=== PATIENT | female | born 1975 | race Caucasian/White ===

== ENCOUNTER 2018-01-28 07:35 | Emergency (ER) | payer MEDICAID, SELFPAY ==
[2018-01-28 07:39] VITALS: BP 118/75; PULSE 79; RESP 16; TEMP 36.6; O2SAT 97
--- NOTE | 2018-01-28 08:07 | DI.RAD_ITS ---
SYMPTOM/DIAGNOSIS: COUGH, SINUS CONGESTION PA AND LATERAL CHEST: Comparison is made with 01/11/14. The heart is normal in size. The lungs are clear. The mediastinal structures and pleura appear intact. CONCLUSION: Normal chest.
--- NOTE | 2018-01-28 08:34 | ED.GENADUL_ITS ---
Discharge Plan Disposition Patient Disposition: HOME Discharge Details Chief Complaint: RespSymp Clinical Impression: Sinusitis, Pneumonia Primary Care Provider: Michell Simmons ED Provider: Jorge Alberto Norris Home Meds and New Rx's Prescriptions: New levofloxacin [Levaquin] 750 mg tablet 750 mg PO DAILY Qty: 4 RF: 0 Continued ProAir HFA 8.5 GM HFA aerosol inhaler 2 puff Inhalation Q4H PRN Qty: 1 RF: 1 almotriptan malate [Axert] 12.5 MG tablet 12.5 mg PO DAILY PRNQty: 10 RF: 3 sertraline 100 MG tablet 200 mg PO DAILY Qty: 180 RF: 3 Xarelto 20 MG tablet 20 mg PO DAILY Qty: 90 RF: 3 Discontinued fluticasone [Flonase Allergy Relief] 9.9 ML spray,suspension 1 - 2 spry NS DAILY PRNQty: 1 RF: 3 Discharge Instructions Instructions: Sinusitis (ED), Pneumonia (ED) Additional Instructions: Please stayed home and rest over the next 3 days. Drink plenty of fluids to stay hydrated. Please contact your primary care physician to arrange follow-up. Call on Monday. Return to the ER for any worsening or new concerning symptoms. Stand Alone Forms: Work Release Referrals: Michell Simmons, ADJUNCT TRAINER [Primary Care Provider] - Discharge Data Discharge Date/Time-TO BE ENTERED AT DEPARTURE: 01/28/18 08:54 Medical Decision Making 8:40 --42-year-old female here with 1-2 months of respiratory illness including productive cough, sinus congestion, and ear pain. Symptoms refractory to course of Augmentin. Patient has severe tenderness over her maxillary sinuses bilaterally. Given persistence and severity of symptoms, refractory to initial antibiotics I am concerned about complicated acute bacterial sinusitis. Consider pneumonia. Chest x-ray reviewed and interpreted by me: Questionable subtle bibasilar opacities, no consolidation. We will treat with Levaquin 750 x 5 days. Patient will require close outpatient follow-up to ensure that symptoms are improving and that additional antibiotic coverage is not necessary. Encouraged her to rest and drink plenty of fluids over the next few days. Disposition decision was made weighing the risks and benefits of hospitalization versus outpatient treatment, the risk for further decompensation, and the patient's wishes. The patient was stable and requested discharge. Prior to discharge, my usual and customary return precautions were reviewed with the patient - this included follow-up instructions and reason to return to the emergency department if condition worsens, does not improve as expected, or other new concerns arise. -- cxr interpreted by radiology: IMPRESSION: No acute findings HPI General Mode of arrival: ambulatory . Date/Time Provider Initiated Documentation: 01/28/18 07:56 . Limitations to Documentation: no limitations . Information obtained by: patient . HPI Narrative: 42-year-old female with history of asthma, pulmonary embolism controlled on Xarelto, here with a chief complaint of cough. Patient states that she has had cough since November. She has associated sinus congestion and ear pain. She was seen by her primary care physician on 01/11/2018 and diagnosed with sinusitis and started on Augmentin. She completed a full course of Augmentin without symptom improvement. Symptoms have worsened over the past few days. Cough is intermittently productive. Sinus congestion is severe. No modifiers. She has associated pain in her left ear. No fevers although she has been taking Tylenol regularly for her pain. Related Data Home Medications Medication Instructions Recorded Confirmed ProAir HFA 2 puff INHALATION Q4H PRN #1 12/06/13 01/28/18 inhaler Xarelto 20 mg PO DAILY #90 tab 06/19/17 01/28/18 almotriptan malate [Axert] 12.5 mg PO DAILY PRN #10 tab 06/19/17 01/28/18 sertraline 200 mg PO DAILY #180 tab-cap 06/19/17 01/28/18 levofloxacin [Levaquin] 750 mg PO DAILY #4 tab 01/28/18 Previous Rx's Medication Instructions Recorded Xarelto 20 mg PO DAILY #90 tab 06/19/17 sertraline 200 mg PO DAILY #180 tab-cap 06/19/17 levofloxacin [Levaquin] 750 mg PO DAILY #4 tab 01/28/18 Allergies Allergy/AdvReac Type Severity Reaction Status Date / Time bupropion Allergy Unknown hives Unverified 01/28/18 07:44 naproxen Allergy Unknown hives Unverified 01/28/18 07:44 General Stated Complaint: RespSymp MANISH: 3 Review of Systems Review of Systems All systems reviewed & are unremarkable except as noted in HPI and below Constitutional Reports body ache(s) and Denies fever(s) ENT Reports otalgia and Reports facial pain Respiratory Reports cough PFSH Medical History Asthma Depression HLD (hyperlipidemia) LGSIL on Pap smear of cervix (08/26/15) Migraines Pulmonary embolism Surgical History Bursectomy Tubal Ligation, [place] teeth extraction Family History Mother Rheumatoid arthritis Diabetes Essential hypertension Hyperlipidemia Mental disorder Father Substance abuse Diabetes Seizure disorder Sister Substance abuse Mental disorder Sister Mental disorder Grandmother Rheumatoid arthritis Personal history of malignant neoplasm Maternal Aunt Personal history of malignant neoplasm Social History Smoking/Tobacco Use Status: Former Tobacco Use alcohol intake: never substance use type: does not use Exam Const General: cooperative and no acute distress Nutritional Appearance: well nourished Orientation: alert and awake HENMT Head: normocephalic and atraumatic Ears: TM abnormal bulging on the left and erythematous (with small fluid filled blister) on the right Face and sinus: face symmetric and tenderness bilaterally forehead and maxilla Mouth: oral mucosae normal and moist mucous membranes Throat: posterior oropharynx abnormal erythema; no cobblstoning, no edema and no exudates Eyes Conjunctivae: normal conjunctivae Sclera: normal sclerae EOM: EOM intact bilaterally Neck Neck: trachea midline and supple Resp Effort & Inspection: cough Quality of cough: actively coughing Auscultation: no rales, rhonchi and no wheezes Cardio Jugular venous pressure: no JVD Rate: regular rate and not tachycardic Rhythm: regular rhythm GI Palpation: soft, not firm, no guarding, no masses, not rigid and nontender Skin General skin exam: no rashes or lesions noted Neuro General: alert, awake, oriented x3 and tone normal Extrem General: no edema Psych Appearance: grossly normal Mental Status: mental status grossly normal Speech and Movement: speech and movement normal Course Vital Signs Temperature 36.6 C 01/28/18 07:39 Pulse 79 01/28/18 07:39 Respiratory Rate 16 01/28/18 07:39 Blood Pressure 118/75 01/28/18 07:39 Pulse Oximetry 97 01/28/18 07:39 Temperature 36.6 C 01/28/18 07:39 Temperature Source Temporal Artery Scan 01/28/18 07:39 Pulse 79 01/28/18 07:39 Respiratory Rate 16 01/28/18 07:39 Respiratory Effort Non-Labored 01/28/18 07:47 Respiratory Depth Normal 01/28/18 07:47 Blood Pressure 118/75 01/28/18 07:39 Blood Pressure Position Sitting 01/28/18 07:39 Pulse Oximetry 97 01/28/18 07:39 Oxygen Delivery Method Room Air 01/28/18 07:39 Oxygen Flow Rate 0 01/28/18 07:39 Pain Level 8 01/28/18 07:39
[2018-01-28 08:54] VITALS: BP 118/75; PULSE 76; RESP 16; TEMP 36.7; O2SAT 97
--- NOTE | 2018-01-28 09:19 | DI.VRAD_ITS ---
EXAM: XR Chest, 2 Views EXAM DATE/TIME: 01/28/2018 8:20 AM CLINICAL HISTORY: 42 years old, female; Signs and symptoms; Other: Cough since oct, sinus congestion TECHNIQUE: XR of the chest, 2 views. COMPARISON: CR CHEST 2 VIEWS PA,LAT 01/11/2014 4:47 PM FINDINGS: Lungs: Unremarkable. No consolidation. Pleural space: Unremarkable. No pleural effusion. No pneumothorax. Heart/Mediastinum: Unremarkable. No cardiomegaly. Bones/joints: Unremarkable. IMPRESSION: No acute findings. Dictated and Authenticated by: Brandie Sesay MD. Ordering:HERMILO Azul MD
== END 2018-01-28 08:54 | disposition home or self-care (01) ==
PROVIDERS: Emergency Provider Student in an Organized Health Care Education/Training Program; PCP Nurse Practitioner Adult Health
DX: J01.90 Acute sinusitis, unspecified (principal); J18.9 Pneumonia, unspecified organism; Z87.891 Personal history of nicotine dependence
CPT/HCPCS: 99283; 71046

== ENCOUNTER 2018-01-28 16:58 | Emergency (ER) | payer MEDICAID, SELFPAY ==
[2018-01-28 17:07] VITALS: BP 122/83; PULSE 83; RESP 16; TEMP 36.4; O2SAT 98
--- NOTE | 2018-01-28 17:17 | ED.GENADUL_ITS ---
Discharge Plan Disposition Patient Disposition: HOME Discharge Details Chief Complaint: RespSymp Clinical Impression: Cough Reason For Visit: cough Primary Care Provider: Michell Simmons ED Provider: Jorge Alberto Norris Home Meds and New Rx's Prescriptions: Continued almotriptan malate [Axert] 12.5 MG tablet 12.5 mg PO DAILY PRNQty: 10 RF: 3 sertraline 100 MG tablet 200 mg PO DAILY Qty: 180 RF: 3 Xarelto 20 MG tablet 20 mg PO DAILY Qty: 90 RF: 3 No Action benzonatate 100 mg capsule 100 mg PO TID PRN (Reason: cough) Qty: 30 RF: 0 ProAir HFA 90 mcg/actuation HFA aerosol inhaler 2 puff Inhalation Q4H PRN Qty: 1 RF: 2 Discharge Instructions Additional Instructions: Take tylenol with codeine tablet tonight. DO NOT TAKE WITH ANY OTHER PRODUCTS CONTAINING ACETAMINOPHEN. Please take your medication as prescribed. See discharge instructions from earlier today. Be sure to rest over the next few days. Follow-up with your doctor. Call tomorrow. Return to the ER for any worsening or new concerning symptoms. Referrals: Michell Simmons, PERMACULTURE DESIGNER [Primary Care Provider] - Discharge Data Discharge Date/Time-TO BE ENTERED AT DEPARTURE: 01/28/18 17:45 Medical Decision Making 42-year-old female returns to the ED after visit earlier today after being diagnosed with sinusitis and pneumonia and started on Levaquin. She returns for persistent cough requesting antitussive medication. Pharmacies are closed. I will treat her with Robitussin-AC here and give her a prescription that she can fill for tomorrow. Discharge instructions as previously discussed were again provided. HPI General Mode of arrival: ambulatory . Date/Time Provider Initiated Documentation: 01/28/18 17:03 . Limitations to Documentation: no limitations . Information obtained by: patient . HPI Narrative: 42-year-old female returns to the ED after visit earlier today after being diagnosed with sinusitis and pneumonia and started on Levaquin. She returns for persistent cough requesting antitussive medication. Please see prior note for additional history. Related Data Home Medications Medication Instructions Recorded Confirmed Xarelto 20 mg PO DAILY #90 tab 06/19/17 02/05/18 almotriptan malate [Axert] 12.5 mg PO DAILY PRN #10 tab 06/19/17 02/05/18 sertraline 200 mg PO DAILY #180 tab-cap 06/19/17 02/05/18 albuterol sulfate HFA 90 2 puff INHALATION Q4H PRN #1 01/29/18 02/05/18 mcg/actuation aerosol inhaler inhaler benzonatate 100 mg capsule 100 mg PO TID PRN #30 tab-cap 02/05/18 02/05/18 Previous Rx's Medication Instructions Recorded Xarelto 20 mg PO DAILY #90 tab 06/19/17 sertraline 200 mg PO DAILY #180 tab-cap 06/19/17 albuterol sulfate HFA 90 2 puff INHALATION Q4H PRN #1 01/29/18 mcg/actuation aerosol inhaler inhaler benzonatate 100 mg capsule 100 mg PO TID PRN #30 tab-cap 02/05/18 Allergies Allergy/AdvReac Type Severity Reaction Status Date / Time bupropion Allergy Unknown hives Verified 02/05/18 08:15 naproxen Allergy Unknown hives Verified 02/05/18 08:15 General Stated Complaint: RespSymp MANISH: 4 Review of Systems Respiratory Reports cough PFSH Social History Smoking/Tobacco Use Status: Former Tobacco Use alcohol intake: never substance use type: does not use Exam Resp Effort & Inspection: normal respiratory effort, able to speak in complete sentences and cough Course Vital Signs Temperature 36.4 C L 01/28/18 17:07 Pulse 83 01/28/18 17:07 Respiratory Rate 16 01/28/18 17:07 Blood Pressure 122/83 01/28/18 17:07 Pulse Oximetry 98 01/28/18 17:07 Temperature 36.4 C L 01/28/18 17:07 Pulse 83 01/28/18 17:07 Respiratory Rate 16 01/28/18 17:07 Respiratory Effort 01/28/18 17:10 Blood Pressure 122/83 01/28/18 17:07 Blood Pressure Position Sitting 01/28/18 17:07 Pulse Oximetry 98 01/28/18 17:07 Pain Level 6 01/28/18 17:07 Comment 01/28/18 17:07
[2018-01-28] MEDS: guaiFENesin/CODEINE PHOSPHATE 10 ML CUP PO (17:29)
[2018-01-28] MEDS: guaiFENesin/D-METHORPHAN HB 5 ML CUP (17:31)
== END 2018-01-28 17:45 | disposition home or self-care (01) ==
PROVIDERS: Emergency Provider Student in an Organized Health Care Education/Training Program; PCP Nurse Practitioner Adult Health
DX: R05 Cough (principal)
CPT/HCPCS: 99283

== ENCOUNTER 2018-03-04 07:58 | Emergency (ER) | payer MEDICAID, SELFPAY ==
--- NOTE | 2018-03-04 08:07 | W.ED.GENAD ---
Discharge Plan Disposition Patient Disposition: HOME Condition: Fair Discharge Details Chief Complaint: Orthopedic Clinical Impression: Munoz's cyst Primary Care Provider: Michell Simmons ED Provider: Ade Peters Home Meds and New Rx's Prescriptions: Continued benzonatate 100 mg capsule 100 mg PO TID PRN (Reason: cough) Qty: 30 RF: 0 almotriptan malate [Axert] 12.5 MG tablet 12.5 mg PO DAILY PRNQty: 10 RF: 3 sertraline 100 MG tablet 200 mg PO DAILY Qty: 180 RF: 3 Xarelto 20 MG tablet 20 mg PO DAILY Qty: 90 RF: 3 ProAir HFA 90 mcg/actuation HFA aerosol inhaler 2 puff Inhalation Q4H PRN Qty: 1 RF: 2 Discharge Instructions Instructions: Bakers Cyst (ED) Additional Instructions: Encourage rest, ice, elevation. Tylenol as needed for discomfort. You may use 1000 milligrams of Tylenol every 6 hours as needed for discomfort, max of 4000mg daily. You may also try topical patches such as Salonpas or Lidoderm patches for discomfort. Please continue with Paul wrap to help with swelling. Crutches to help with ambulation, take care in the weather and touch down with the affected foot for balance. If you develop fevers/chills, increased pain, shortness of breath, difficulty breathing, chest pain or other new/worsening symptoms please seek care urgently once again. Please call orthopedics to schedule follow up appointment, number listed below. Stand Alone Forms: Work Release Referrals: Michell Simmons NP [Primary Care Provider] - René Hanson MD [ [facility] STAFF PHYSICIAN] - Medical Decision Making Patient is a 42 year old female with history of LE DVT and PE, currently anticoagulated on Xarelto, presenting today with c/c of left LE pain that began 2 days ago. STates she awoke with a charley horse in the posterior calf. Reports that pain has migrated and is now posterior and medial thigh. Having difficulty ambulating secondary to pain. STates she has been taking her medications as prescribed, has not missed any dosing of Xarelto. Denies any recent trauma, no recent travel. Denies CP or SOB although she felt winded while shoveling this morning. Reports that pain is similar to previous clot. Patient has clot in 2002, has been anticoagulated since then. STates that it was unprovoked, thought to be familial. She repeorts she has been ill recently. States she was sick for approxiamtely 6 weeks with pneumonia, was on multiple antibiotics and was fairly sedentary. Finished treatment a few weeks ago. On exam, she has good distal pulses. No posterior calf pain with palpation. Pain is elicited with palpation over the medial and posterior thigh. Full ROM. Pain with eversion of the hip, this causes discomfort along the medial thigh. Has few varicosities on the calf, more on the contralateral side. No edema. Pain posterior knee. No pain with ROM of the knee, ligamentous exam intact. Patients history and description is concerning for possible clot. Her calf is soft, negative Homans sign. Also considered muscular cause of discomfort. Plan to obtain US of LLE. However, as it is Monday, no US tech on. They are calling to see if someone is available. If not, will screen with d-dimer. Will give Tylenol to help with discomfort. US will be in in one hour. Patient continues to endorse fairly severe pain. Will augment Tylenol with Oxycodone. She is able to get a ride home. US reviewed by radiologist: FINDINGS: Left deep veins: Unremarkable. The common femoral, femoral, proximal profunda femoral and popliteal veins are patent without thrombus. Normal compressibility, augmentation response and Doppler waveforms. Soft tissues: Cyst measuring 2.7 cm x 1.8 cm x 0.5 cm within the popliteal fossa consistent with Munoz's cyst. IMPRESSION: No DVT. Discussed these findings with the patient. She reports that much of her pain seems to be radiating from the posterior aspect of the knee radiating up the thigh which is consistent with where her Munoz's cyst is. She also reports she had been able to feel focal swelling in the posterior aspect of the knee, was not able to appreciate this on exam today. We discussed pathology of Munoz's cyst and expected course. Paul wrap will be applied. We will give crutches. Particular given the weather, I did advise on touchdown weightbearing to prevent fall. I encouraged rest, ice, elevation. Advised Tylenol. Patient is anticoagulated unable to take ibuprofen. Advise follow-up with orthopedics, she will contact them tomorrow to schedule follow-up appointment. We discussed new/worsening symptoms and when to seek care urgently once again. All her questions and concerns were addressed and she is in agreement with this plan. HPI General Mode of arrival: ambulatory. Date/Time Provider Initiated Documentation: 03/04/18 08:07. Limitations to Documentation: no limitations. Information obtained by: patient. History of Present Illness 42 year old F presents to the emergency department with the chief complaint of left leg pain, described as moderate, with intensity rated at 5. Quality is described as aching, and is localized to the left and lower extremity. Patient reports no radiation. Patient started experiencing this day(s) (2) and it has been constant. Immobilization improves symptom(s), Movement worsens symptoms . Patient notes denies chest pain, cough, nausea/vomiting, rash, shortness of breath and weakness. Patient did receive the following treatments prior to arrival, other (500mg Tylenlol 3.5 hours prior to arrival) Related Data Home Medications Medication Instructions Recorded Confirmed Xarelto 20 mg PO DAILY #90 tab 06/19/17 03/04/18 almotriptan malate [Axert] 12.5 mg PO DAILY PRN #10 tab 06/19/17 03/04/18 sertraline 200 mg PO DAILY #180 tab-cap 06/19/17 03/04/18 albuterol sulfate HFA 90 2 puff INHALATION Q4H PRN #1 01/29/18 03/04/18 mcg/actuation aerosol inhaler inhaler benzonatate 100 mg capsule 100 mg PO TID PRN #30 tab-cap 02/05/18 03/04/18 Previous Rx's Medication Instructions Recorded Xarelto 20 mg PO DAILY #90 tab 06/19/17 sertraline 200 mg PO DAILY #180 tab-cap 06/19/17 albuterol sulfate HFA 90 2 puff INHALATION Q4H PRN #1 01/29/18 mcg/actuation aerosol inhaler inhaler benzonatate 100 mg capsule 100 mg PO TID PRN #30 tab-cap 02/05/18 Allergies Allergy/AdvReac Type Severity Reaction Status Date / Time bupropion Allergy Unknown hives Verified 03/04/18 08:35 naproxen Allergy Unknown hives Verified 03/04/18 08:35 General MANISH: 4 Review of Systems Constitutional Reports as per HPI, Denies chills, Denies fever(s), Denies headache(s) and Denies weakness ENT Denies headache(s) Cardiovascular Reports as per HPI Respiratory Reports as per HPI and Denies cough Gastrointestinal Denies abdominal pain, Denies change in stool character, Denies loose stools and Denies vomiting Musculoskeletal Reports as per HPI and Denies tingling Integumentary/Breasts Reports as per HPI, Denies rash and Denies wounds Neurologic Denies headache(s), Denies tingling and Denies weakness PFSH Medical History Asthma Depression HLD (hyperlipidemia) LGSIL on Pap smear of cervix (08/26/15) Migraines Pulmonary embolism Surgical History Bursectomy Tubal Ligation, [place] teeth extraction Social History Smoking/Tobacco Use Status: Former Tobacco Use alcohol intake: never substance use type: does not use Exam Const General: cooperative, healthy appearing, comfortable, no acute distress, well developed and well groomed Nutritional Appearance: average body habitus and well nourished Orientation: alert and awake Resp Effort & Inspection: normal respiratory effort, able to speak in complete sentences and no respiratory distress Auscultation: clear to auscultation bilaterally, no rales, no rhonchi and no wheezes Cardio Rate: regular rate Rhythm: regular rhythm Heart Sounds: S1 normal and S2 normal Skin General skin exam: no rashes or lesions noted Lesions: no lesions Rashes: no rashes Trauma: no lacerations or abrasions Neuro General: alert and awake Cognition: normal cognition Speech: speech normal Gait: normal gait Motor: muscle tone normal throughout Sensory Exam: no sensory deficits noted Extrem General: normal to inspection, full ROM, normal capillary refill, no joint enlargement, no pedal edema, no calf tenderness, abnormal gait (antalgic gait), no calf tenderness bilaterally, no edema and limp Left lower extremity: full ROM, normal capillary refill, hip/thigh Details: tenderness (medial and posterior thigh) and normal ROM; no swelling, no ecchymosis and no unusual warmth, knee Details: normal to inspection, tenderness Location: of the popliteal fossa, normal ROM and knee ligament exam normal; no swelling, no deformity and no unusual warmth, lower leg Details: no edema; no tenderness, no localized swelling, no palpable cords, no ecchymosis, no deformity and no unusual warmth and foot Details: normal capillary refill, normal to inspection, toes with normal ROM, no edema and vascular exam Details: dorsalis pedis pulse present, posterior tibial pulse present and normal capillary refill; not cool and no cyanosis; no tenderness; abnormal to inspection (patient has few areas of varicosities on bilateral LE calf. ) Psych Appearance: grossly normal and well kempt Mental Status: mental status grossly normal Speech and Movement: speech and movement normal
[2018-03-04 08:10] VITALS: BP 111/85; PULSE 80; RESP 12; TEMP 36.8; O2SAT 96
--- NOTE | 2018-03-04 08:12 | ED.GENADUL_ITS ---
Discharge Plan Disposition Patient Disposition: HOME Condition: Fair Discharge Details Chief Complaint: Orthopedic Clinical Impression: Munoz's cyst Primary Care Provider: Michell Simmons ED Provider: Ade Peters Home Meds and New Rx's Prescriptions: Continued benzonatate 100 mg capsule 100 mg PO TID PRN (Reason: cough) Qty: 30 RF: 0 almotriptan malate [Axert] 12.5 MG tablet 12.5 mg PO DAILY PRNQty: 10 RF: 3 sertraline 100 MG tablet 200 mg PO DAILY Qty: 180 RF: 3 Xarelto 20 MG tablet 20 mg PO DAILY Qty: 90 RF: 3 ProAir HFA 90 mcg/actuation HFA aerosol inhaler 2 puff Inhalation Q4H PRN Qty: 1 RF: 2 Discharge Instructions Instructions: Bakers Cyst (ED) Additional Instructions: Encourage rest, ice, elevation. Tylenol as needed for discomfort. You may use 1000 milligrams of Tylenol every 6 hours as needed for discomfort, max of 4000mg daily. You may also try topical patches such as Salonpas or Lidoderm patches for discomfort. Please continue with Paul wrap to help with swelling. Crutches t o help with ambulation, take care in the weather and touch down with the affected foot for balance. If you develop fevers/chills, increased pain, shortness of breath, difficulty breathing, chest pain or other new/worsening symptoms please seek care urgently once again. Please call orthopedics to schedule follow up appointment, number listed below. Stand Alone Forms: Work Release Referrals: Michell Simmons NP [Primary Care Provider] - René Hanson MD [ [facility] STAFF PHYSICIAN] - Medical Decision Making Patient is a 42 year old female with history of LE DVT and PE, currently anticoagulated on Xarelto, presenting today with c/c of left LE pain that began 2 days ago. STates she awoke with a charley horse in the posterior calf. Reports that pain has migrated and is now posterior and medial thigh. Having difficulty ambulating secondary to pain. STates she has been taking her medications as prescribed, has not missed any dosing of Xarelto. Denies any recent trauma, no recent travel. Denies CP or SOB although she felt winded while shoveling this morning. Reports that pain is similar to previous clot. Patient has clot in 2002, has been anticoagulated since then. STates that it was unprovoked, thought to be familial. She repeorts she has been ill recently. States she was sick for approxiamtely 6 weeks with pneumonia, was on multiple antibiotics and was fairly sedentary. Finished treatment a few weeks ago. On exam, she has good distal pulses. No posterior calf pain with palpation. Pain is elicited with palpation over the medial and posterior thigh. Full ROM. Pain with eversion of the hip, this causes discomfort along the medial thigh. Has few varicosities on the calf, more on the contralateral side. No edema. Pain posterior knee. No pain with ROM of the knee, ligamentous exam intact. Patients history and description is concerning for possible clot. Her calf is soft, negative Homans sign. Also considered muscular cause of discomfort. Plan to obtain US of LLE. However, as it is Monday, no US tech on. They are calling to see if someone is available. If not, will screen with d-dimer. Will give T ylenol to help with discomfort. US will be in in one hour. Patient continues to endorse fairly severe pain. Will augment Tylenol with Oxycodone. She is able to get a ride home. US reviewed by radiologist: FINDINGS: Left deep veins: Unremarkable. The common femoral, femoral, proximal profunda femoral and popliteal veins are patent without thrombus. Normal compressibility, augmentation response and Doppler waveforms. Soft tissues: Cyst measuring 2.7 cm x 1.8 cm x 0.5 cm within the popliteal fossa consistent with Munoz's cyst. IMPRESSION: No DVT. Discussed these findings with the patient. She reports that much of her pain seems to be radiating from the posterior aspect of the knee radiating up the thigh which is consistent with where her Munoz's cyst is. She also reports she had been able to feel focal swelling in the posterior aspect of the knee, was not able to appreciate this on exam today. We discussed pathology of Munoz's cyst and expected course. Paul wrap will be applied. We will give crutches. Particular given the weather, I did advise on touchdown weightbearing to prevent fall. I encouraged rest, ice, elevation. Advised Tylenol. Patient is anticoagulated unable to take ibuprofen. Advise follow-up with orthopedics, she will contact them tomorrow to schedule follow-up appointment. We discussed new/worsening symptoms and when to seek care urgently once again. All her questions and concerns were addressed and she is in agreement with this plan. HPI General Mode of arrival: ambulatory . Date/Time Provider Initiated Documentation: 03/04/18 08:07 . Limitations to Documentation: no limitations . Information obtained by: patient . History of Present Illness 42 year old F presents to the emergency department with the chief complaint of left leg pain, described as moderate, with intensity rated at 5. Quality is described as aching, and is localized to the left and lower extremity. Patient reports no radiation. Patient started experiencing this day(s) (2) and it has been constant. Immobilization improves symptom(s), Movement worsens symptoms . Patient notes denies chest pain, cough, nausea/vomiting, rash, shortness of breath and weakness. Patient did receive the following treatments prior to arrival, other (500mg Tylenlol 3.5 hours prior to arrival) Related Data Home Medications Medication Instructions Recorded Confirmed Xarelto 20 mg PO DAILY #90 tab 06/19/17 03/04/18 almotriptan malate [Axert] 12.5 mg PO DAILY PRN #10 tab 06/19/17 03/04/18 sertraline 200 mg PO DAILY #180 tab-cap 06/19/17 03/04/18 albuterol sulfate HFA 90 2 puff INHALATION Q4H PRN #1 01/29/18 03/04/18 mcg/actuation aerosol inhaler inhaler benzonatate 100 mg capsule 100 mg PO TID PRN #30 tab-cap 18 03/04/18 Previous Rx's Medication Instructions Recorded Xarelto 20 mg PO DAILY #90 tab 06/19/17 sertraline 200 mg PO DAILY #180 tab-cap 06/19/17 albuterol sulfate HFA 90 2 puff INHALATION Q4H PRN #1 01/29/18 mcg/actuation aerosol inhaler inhaler benzonatate 100 mg capsule 100 mg PO TID PRN #30 tab-cap 02/05/18 Allergies Allergy/AdvReac Type Severity Reaction Status Date / Time bupropion Allergy Unknown hives Verified 03/04/18 08:35 naproxen Allergy Unknown hives Verified 03/04/18 08:35 General MANISH: 4 Review of Systems Constitutional Reports as per HPI, Denies chills, Denies fever(s), Denies headache(s) and Denies weakness ENT Denies headache(s) Cardiovascular Reports as per HPI Respiratory Reports as per HPI and Denies cough Gastrointestinal Denies abdominal pain, Denies change in stool character, Denies loose stools and Denies vomiting Musculoskeletal Reports as per HPI and Denies tingling Integumentary/Breasts Reports as per HPI, Denies rash and Denies wounds Neurologic Denies headache(s), Denies tingling and Denies weakness PFSH Medical History Asthma Depression HLD (hyperlipidemia) LGSIL on Pap smear of cervix (08/26/15) Migraines Pulmonary embolism Surgical History Bursectomy Tubal Ligation, [place] teeth extraction Social History Smoking/Tobacco Use Status: Former Tobacco Use alcohol intake: never substance use type: does not use Exam Const General: cooperative, healthy appearing, comfortable, no acute distress, well developed and well groomed Nutritional Appearance: average body habitus and well nourished Orientation: alert and awake Resp Effort & Inspection: normal respiratory effort, able to speak in complete sentences and no respiratory distress Auscultation: clear to auscultation bilaterally, no rales, no rhonchi and no wheezes Cardio Rate: regular rate Rhythm: regular rhythm Heart Sounds: S1 normal and S2 normal Skin General skin exam: no rashes or lesions noted Lesions: no lesions Rashes: no rashes Trauma: no lacerations or abrasions Neuro General: alert and awake Cognition: normal cognition Speech: speech normal Gait: normal gait Motor: muscle tone normal throughout Sensory Exam: no sensory deficits noted Extrem General: normal to inspection, full ROM, normal capillary refill, no joint enlargement, no pedal edema, no calf tenderness, abnormal gait (antalgic gait), no calf tenderness bilaterally, no edema and limp Left lower extremity: full ROM, normal capillary refill, hip/thigh Details: tenderness (medial and posterior thigh) and normal ROM; no swelling, no ecchymosis and no unusual warmth, knee Details: normal to inspection, tenderness Location: of the popliteal fossa, normal ROM and knee ligament exam normal; no swelling, no deformity and no unusual warmth, lower leg Details: no edema; no tenderness, no localized swelling, no palpable cords, no ecchymosis, no deformity and no unusual warmth and foot Details: normal capillary refill, normal to inspection, toes with normal ROM, no edema and vascular exam Details: dorsalis pedis pulse present, posterior tibial pulse present and normal capillary refill; not cool and no cyanosis; no tenderness; abnormal to inspection (patient has few areas of varicosities on bilateral LE calf. ) Psych Appearance: grossly normal and well kempt Mental Status: mental status grossly normal Speech and Movement: speech and movement normal
--- NOTE | 2018-03-04 08:12 | DI.US_ITS ---
SYMPTOM/DIAGNOSIS: POSTERIOR PAIN, H/O CLOT LEFT LOWER EXTREMITY ULTRASOUND: The deep veins of the left lower extremity show normal compression, augmentation and color flow. There is no evidence of a deep venous thrombus present. The saphenofemoral junction appears unremarkable. There is a 2.7 by 0.5 by 1.8 cm. cyst in the popliteal fossa consistent with a Munoz's cyst. IMPRESSION: No evidence of a left lower extremity deep venous thrombus.
[2018-03-04] MEDS: Acetaminophen 500 MG TAB PO (08:25)
[2018-03-04] MEDS: oxyCODONE 5 MG TAB PO (09:47)
--- NOTE | 2018-03-04 11:10 | DI.VRAD_ITS ---
EXAM: US Left Duplex Lower Extremity Veins, Limited EXAM DATE/TIME: 03/04/2018 10:55 AM CLINICAL HISTORY: 42 years old, female; Signs and symptoms; Other: Left calf pain TECHNIQUE: Real-time Duplex ultrasound of the Left Lower Extremity with 2-D hardin scale, color Doppler flow and spectral waveform analysis. Limited exam focused on the left lower extremity veins. COMPARISON: No relevant prior studies available. FINDINGS: Left deep veins: Unremarkable. The common femoral, femoral, proximal profunda femoral and popliteal veins are patent without thrombus. Normal compressibility, augmentation response and Doppler waveforms. Soft tissues: Cyst measuring 2.7 cm x 1.8 cm x 0.5 cm within the popliteal fossa consistent with Munoz's cyst. IMPRESSION: No DVT. Dictated and Authenticated by: Domingo Benjamin MD. Ordering:YADIRA Booker MD
== END 2018-03-04 11:47 | disposition home or self-care (01) ==
PROVIDERS: Emergency Provider Physician Assistant; PCP Nurse Practitioner Adult Health
DX: M71.22 Synovial cyst of popliteal space [Baker], left knee (principal); Z79.01 Long term (current) use of anticoagulants
CPT/HCPCS: 99284; 93971; E0114

== ENCOUNTER 2018-04-23 01:03 | Outpatient (CLI) | payer MEDICAID, SELFPAY ==
--- NOTE | 2018-04-23 09:40 | DI.MRI_ITS ---
SYMPTOMS/DIAGNOSIS: LT KNEE PAIN, LT INTERNAL DERANGEMENT MRI OF THE LEFT KNEE: Routine noncontrast examination was performed. The anterior cruciate and posterior cruciate ligaments are intact as are both the medial and lateral collateral ligaments, extensor mechanism and medial and lateral retinaculum. The popliteus tendon has a normal appearance. There is no evidence of a meniscal tear. There is thinning of the articular cartilage in the patellofemoral joint with subchondral edema seen in both the femoral condyle and the patella. There is a small amount of fluid in the joint space. There is a small popliteal cyst present. No findings to suggest an occult fracture or avascular necrosis is seen. There are subchondral cysts seen in the medial tibial plateau. The muscles show normal signal and size. No significant muscular fatty atrophy is present. IMPRESSION: 1. No evidence of a meniscal or ligament tear. 2. Degenerative changes seen in the knee.
== END 2018-04-23 01:23 ==
PROVIDERS: PCP Nurse Practitioner Adult Health; Visit Provider Student in an Organized Health Care Education/Training Program
DX: M25.562 Pain in left knee (principal); M23.92 Unspecified internal derangement of left knee; M17.12 Unilateral primary osteoarthritis, left knee
CPT/HCPCS: 73721

== ENCOUNTER 2018-05-11 16:20 | Outpatient (REF) | payer MEDICAID, SELFPAY ==
[2018-05-11 18:25] LABS: Abs Immature Grans 0.02 k/cumm (0.0-0.09); Absolute Basophil Count 0.05 k/cumm (0.0-0.2); Absolute Eosinophil Count 0.16 k/cumm (0.0-0.7); Absolute Lymphocyte Count 2.82 k/cumm (1.2-3.4); Absolute Monocyte Count 0.68 k/cumm (0.11-0.7); Basophils % 0.6; Eosinophils % 1.8; HCT 44.3 % (36.0-46.0); HGB 15.4 g/dL (12.0-15.5); Immature Grans % 0.2; Lymphocytes % 32.3; Mean Corp. HGB Concentration 34.8 g/dL (32.0-36.0); Mean Corpuscular Hemoglobin 32.6 pg (27.0-33.0); Mean Corpuscular Volume 93.9 fL (80-95); Mean Platelet Volume 10.7 fL (8.0-11.0); Monocytes % 7.8; Neutrophils % 57.3; Platelet Count 298 x1000/uL (130-400); RBC 4.72 m/cumm (4.00-5.20); RBC Distribution Width 12.6 % (11.7-14.6); White Blood Cell Count 8.73 k/cumm (4.4-10.8)
[2018-05-11 18:38] LABS: Anion Gap 10.2 mmol/L (3-11); BUN 21 mg/dL (7-18); CO2 26.8 mmol/L (21.0-32.0); CREATININE 0.74 mg/dL (0.55-1.02); Calcium 9.3 mg/dL (8.5-10.1); Chloride 102 mmol/L (98-107); Glucose 93 mg/dL (70-100); Potassium 4.4 mmol/L (3.5-5.1); Sodium 139 mmol/L (136-145); Uric Acid 3.8 mg/dL (2.6-6.0)
[2018-05-11 19:25] LABS: ESR 8 MM/HR (0-20)
[2018-05-14 12:47] LABS: Rheumatoid Factor 14 IU/mL (<12.5)
== END 2018-05-11 16:40 ==
LOC: LBN 16:20
PROVIDERS: PCP Nurse Practitioner Adult Health; Visit Provider Nurse Practitioner Adult Health
DX: M15.1 Heberden's nodes (with arthropathy) (principal); M17.12 Unilateral primary osteoarthritis, left knee; M19.041 Primary osteoarthritis, right hand; M19.042 Primary osteoarthritis, left hand; M19.071 Primary osteoarthritis, right ankle and foot; M19.072 Primary osteoarthritis, left ankle and foot; M25.549 Pain in joints of unspecified hand; J32.9 Chronic sinusitis, unspecified; R53.83 Other fatigue
CPT/HCPCS: 80048; 85652; 84550; 85025; 86431

== ENCOUNTER 2018-10-31 06:03 | Day surgery (SDC) | payer MEDICAID, SELFPAY ==
[2018-10-31 06:26] VITALS: BP 103/75; PULSE 69; RESP 16; TEMP 36.5; O2SAT 96
--- NOTE | 2018-10-31 06:52 | ROE_ITS ---
Date of service: 10/31/18 Time of Service: 08:45 Operative Note Operative Note DATE OF PROCEDURE: 10/31/18 PRE-OP DIAGNOSIS: Multiple small painfull lipomas POST-OP DIAGNOSIS: same PROCEDURE: Excision of lipomas SURGEON: Nedra Thornton DIRECTOR INSTRUCTIONAL MATERIAL: Shruti Becerra ANESTHESIA: local (2% Lidociane mixed with 0.5% Marcaine with epinephrine) ESTIMATED BLOOD LOSS: 5 PATHOLOGY: none sent COMPLICATIONS: None Patient was transported to: same day Patient's condition: stable Indications: Mrs. Mccray is a pleasant 43 year old female seen in the office with complaint of multiple small lipomas that are painful. There are 2 on her right arm, 2 on her left arm and 2 on her lower back. Risks, benefits and complications have been reviewed. Questions were entertained and answered to her staisfaction and she wished to proceed. No guarantees were give or implied. Findings: Right Arm- Lipoma #1- 2 x 1 cm Lipoma #2 1 x 2 cm Left Arm- Lipoma #1 1x 2 cm Lipoma #2 3 x 2 cm Lower Back- Lipoma #1 2 x 1 cm Lipoma #2 2 x 2 cm Procedure Description: After informed consent was obtained the patient was taken to the procedure room. Monitors were applied and a timeout was done. Patient's name, date of , allergies to medications, procedure to be done were reviewed. Fire risk was assessed. First the patient's right arm was prepped and draped in a sterile surgical fashion and infiltrated with local anesthetic. Once the skin was numb a small incision was made over the palpable lipoma with a 15 blade. Dissection was done with cautery and blunt dissection around the lipoma. Once completely dissected it was removed. The skin was then closed with 4-0 Vicryl. The same procedure was done to the second lipoma on the right arm. The skin was cleaned and skin affix was applied. Next the left arm was prepped and draped in a sterile surgical fashion. The skin was then infiltrated with local anesthetic over both palpable lipomas. A small incision was made with a 15 blade. The lipoma was dissected bluntly and with cautery. Once completely dissected it was removed. The skin was cleaned and dried and closed with 4-0 Vicryl. The same procedure was done to the second lipoma on the left arm. The skin was cleaned and dried and skin affix was applied. The patient was then turned onto her right side and her lower back was prepped and draped in a sterile surgical fashion. The local anesthetic was infiltrated into the dermis over the 2 palpable lipomas. Small incisions were made with a 15 blade over the palpable lipomas. Dissection around the lipomas was again done with cautery and blunt dissection. Once completely dissected they were both removed. Bleeding was stopped with cautery. The skin was cleaned and dried and closed with 4-0 Vicryl. Skjn affix was applied to both incisions. The patient tolerated the procedure well she was taken back to same-day surgery in stable condition. There were no immediate complications. Sponge instrument needle counts were correct at the end of the case.
--- NOTE | 2018-10-31 07:01 | W.PM.DSUDISC ---
Discharge Plan Disposition Patient Disposition: HOME Condition: Good Discharge Details Reason For Visit: Excision of multiple lipomas Attending Provider: Nedra Thornton Primary Care Provider: Michell Simmons Home Meds and New Rx's Prescriptions: Continued almotriptan malate 12.5 mg tablet 12.5 mg PO DAILY PRN (Reason: migraine headache) Qty: 10 RF: 4 celecoxib 100 mg capsule 100 mg PO DAILY Qty: 90 RF: 3 albuterol sulfate [ProAir HFA] 90 mcg/actuation HFA aerosol inhaler 2 puff Inhalation Q4H PRN Qty: 1 RF: 2 montelukast [Singulair] 10 mg tablet 10 mg PO DAILY RF: 0 fexofenadine 180 mg tablet 180 mg PO DAILY RF: 0 fluticasone propionate [Flonase Allergy Relief] 50 mcg/actuation spray,suspension 2 spray FLORENTIN DAILY PRNRF: 0 Xarelto 20 mg tablet 20 mg PO DAILY Qty: 90 RF: 3 sertraline 100 mg tablet 200 mg PO DAILY Qty: 180 RF: 3 Discharge Instructions Instructions: Care For Your Stitches (DC) Additional Instructions: Activity at Home after surgery: As tolerated Diet, Nutrition, & wound healing: As Toelrated Pain Medications: 1. Alternate Tylenol 650 mg every 6 hours and Ibuprofen 600 mg every 6 hours. You may alternate between the 2 2. If a narcotic has been prescribed take as directed only for breakthrough pain For Constipation: 1. Take Milk of Magnesia or MiraLax as needed for constipation Other: 1. You may shower daily. Do not scrub the incisions 2. Do not soak the incisions for 1 week 3. You may alternate ice and heat as needed for pain and swelling Wound Care: 1. Keep the incisions clean and dry Please call our office if you develop: 1. Fevers >101.5 2. Nausea or Vomiting 3. Worsening pain 4. Redness and thick discharge from the wounds If after hours please call the Hospital at and ask to speak to the on-call surgeon Activity:: Activity as Tolerated Diet:: As Tolerated Discharge Orders Discharge Orders: Discharge Order (Routine); Ordered 10/31/18 Ordered By: Nedra Thornton DS: Diagnosis Discharge Diagnosis (1) S/P excision of lipoma: Status: Acute
[2018-10-31] MEDS: Lidocaine 2% Multi-Dose 50 ML VIAL (08:15)
== END 2018-10-31 09:10 | disposition home or self-care (01) ==
PROVIDERS: PCP Nurse Practitioner Adult Health; Visit Provider Surgery
PROC: (CPT 11403; principal; 2018-10-31 07:30)
DX: D17.22 Benign lipomatous neoplasm of skin and subcutaneous tissue of left arm (principal); D17.21 Benign lipomatous neoplasm of skin and subcutaneous tissue of right arm; D17.1 Benign lipomatous neoplasm of skin and subcutaneous tissue of trunk
CPT/HCPCS: 11403; 11402 ×5; 81025

== ENCOUNTER 2019-01-02 01:25 | Outpatient (CLI) | payer MEDICAID, SELFPAY ==
[2019-01-02 08:15] LABS: ALT 28 U/L (14-59); AST 17 U/L (15-37); Albumin 3.8 g/dL (3.4-5.0); Alkaline Phosphatase 76 U/L (46-116); Anion Gap 9.4 mmol/L (3-11); BUN 19 mg/dL (7-18); Bilirubin, Total 0.4 mg/dL (0.2-1.0); CO2 24.6 mmol/L (21.0-32.0); CREATININE 0.65 mg/dL (0.55-1.02); Calcium 8.6 mg/dL (8.5-10.1); Calculated LDL 152 mg/dL; Chloride 106 mmol/L (98-107); Cholesterol 217 mg/dL (<200); Glucose 95 mg/dL (74-106); HDL Cholesterol 46 mg/dL (40-60); Potassium 4.5 mmol/L (3.5-5.1); Sodium 140 mmol/L (136-145); Total Protein 6.6 g/dL (6.4-8.2); Triglyceride 97 mg/dL (<150)
[2019-01-03 10:49] LABS: Cyclic Citrullinated Peptide <2.5 U/mL (<5.0)
== END 2019-01-02 01:45 ==
PROVIDERS: PCP Nurse Practitioner Adult Health; Visit Provider Nurse Practitioner Adult Health
DX: E66.3 Overweight (principal); E78.5 Hyperlipidemia, unspecified; R76.8 Other specified abnormal immunological findings in serum; Z13.1 Encounter for screening for diabetes mellitus; Z51.81 Encounter for therapeutic drug level monitoring; Z79.01 Long term (current) use of anticoagulants; Z79.1 Long term (current) use of non-steroidal anti-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 (NSAID); Z83.3 Family history of diabetes mellitus
CPT/HCPCS: 36415; 80053; 80061; 86200

== ENCOUNTER 2019-03-29 11:33 | Outpatient (CLI) | payer MEDICAID, SELFPAY ==
--- NOTE | 2019-03-29 11:30 | DI.RAD_ITS ---
EXAM: XR KNEE LT 4V AP,LAT,AMALIA,PAT INDICATION: F/U L KNEE PAIN. COMPARISON: XR KNEE RT 4V AP,LAT,AMALIA,PAT from 03/29/2019 TECHNIQUE: 2D digital imaging was performed. FINDINGS: There are degenerative changes of the left knee characterized by periarticular spurring involving all 3 joint compartments and moderately severe narrowing of the patellofemoral joint. Bones are normall y mineralized and intact. The soft tissues are unremarkable. IMPRESSION: Osteoarthritis of the left knee.
--- NOTE | 2019-03-29 11:30 | DI.RAD_ITS ---
EXAM: XR KNEE RT 4V AP,LAT,AMALIA,PAT INDICATION: eval R loi pain. COMPARISON: No exams were available for comparison TECHNIQUE: 2D digital imaging was performed. FINDINGS: There are degenerative changes of the right knee characterized by periarticular spurring in all 3 vipul nt compartments and marked narrowing of the patellofemoral joint. The bones are intact. There is a small suprapatellar joint effusion. The soft tissues are otherwise unremarkable. IMPRESSION: Osteoarthritis of the right knee.
== END 2019-03-29 11:53 ==
PROVIDERS: PCP Nurse Practitioner Adult Health; Visit Provider Student in an Organized Health Care Education/Training Program
DX: M25.561 Pain in right knee (principal); M25.562 Pain in left knee; M17.0 Bilateral primary osteoarthritis of knee
CPT/HCPCS: 73564

== ENCOUNTER 2019-08-02 03:36 | Outpatient (CLI) | payer MEDICAID, SELFPAY ==
[2019-08-02 09:18] LABS: HCT 44.1 % (36.0-46.0); HGB 15.2 g/dL (12.0-15.5); Mean Corp. HGB Concentration 34.5 g/dL (32.0-36.0); Mean Corpuscular Hemoglobin 32.5 pg (27.0-33.0); Mean Corpuscular Volume 94.4 fL (80-95); Mean Platelet Volume 9.8 fL (8.0-11.0); Platelet Count 281 x1000/uL (130-400); RBC 4.67 m/cumm (4.00-5.20); White Blood Cell Count 4.78 k/cumm (4.4-10.8)
[2019-08-02 11:26] LABS: Anion Gap 7.1 mmol/L (3-11); BUN 15 mg/dL (7-18); CO2 28.9 mmol/L (21.0-32.0); CREATININE 0.69 mg/dL (0.55-1.02); Calcium 9.2 mg/dL (8.5-10.1); Chloride 103 mmol/L (98-107); Glucose 90 mg/dL (74-106); Potassium 4.5 mmol/L (3.5-5.1); Sodium 139 mmol/L (136-145)
== END 2019-08-02 03:56 ==
PROVIDERS: PCP Nurse Practitioner Adult Health; Visit Provider Student in an Organized Health Care Education/Training Program
DX: M17.0 Bilateral primary osteoarthritis of knee; M25.561 Pain in right knee; M25.562 Pain in left knee
CPT/HCPCS: 36415; 80048; 85027

== ENCOUNTER 2019-08-05 08:11 | Outpatient (CLI) | payer MEDICAID, SELFPAY ==
[2019-08-06 18:35] LABS: COVID-19 RT-PCR UVMMC Result Negative (Negative)
== END 2019-08-05 08:31 ==
PROVIDERS: PCP Nurse Practitioner Adult Health; Visit Provider Student in an Organized Health Care Education/Training Program
DX: Z01.818 Encounter for other preprocedural examination (principal); Z11.59 Encounter for screening for other viral diseases
CPT/HCPCS: U0003

== ENCOUNTER 2019-08-07 06:02 | Observation (INO) | payer MEDICAID, SELFPAY ==
[2019-08-07] VITALS (12 sets, daily range): BP systolic 109–145; BP diastolic 60–97; PULSE 39–57; RESP 11–26; TEMP 36–36.9; O2SAT 96–98
[2019-08-07] MEDS: Acetaminophen 500 MG TAB 1000 MG PO ×2 (06:44→13:50)
[2019-08-07] MEDS: Gabapentin 300 MG CAP PO (06:45)
[2019-08-07] MEDS: Celecoxib 200 MG CAP 400 MG PO (06:45)
[2019-08-07] MEDS: Lactated Ringers 1,000 ML 80 ML IV ×2 (07:05→11:28)
[2019-08-07] MEDS: Bupivacaine 0.25% Pres-Free 30 ML VIAL ×2 (07:24→08:26)
[2019-08-07] MEDS: ceFAZolin 2 GM/50 ML BAG IVPB (07:25)
--- NOTE | 2019-08-07 07:26 | DSE_ITS ---
Date of service: 08/07/19 Time of Service: 17:37 DS: Diagnosis Discharge Diagnosis (1) Patellofemoral arthritis of left knee: Status: Acute (2) Patellofemoral arthritis of right knee: Status: Acute Discharge Plan Disposition Patient Disposition: HOME Condition: Good Discharge Details Reason For Visit: BILATERAL PATELLOFEMORAL ARTHRITIS Admit Date/Time: 08/07/19 06:02 Admit Provider: René Hanson Attending Provider: René Hanson Primary Care Provider: Michell Simmons Hospital Course Hospital Course: Patient was admitted to the medical/surgical floor following the procedure. The surgery was tolerated well without any notable medical, surgical, or anesthetic complications. Mobilization began postoperatively. The coto catheter was removed and voiding spontaneously. Vitals were stable. Physical therapy worked with the patient and was cleared for discharge home. No acute medical issues. Pain was controlled on oral regimen. Home Meds and New Rx's Prescriptions: New acetaminophen 500 mg tablet 1,000 mg PO Q8H PRN (Reason: pain) Qty: 90 RF: 3 pantoprazole 40 mg tablet,delayed release (DR/EC) 40 mg PO DAILY Qty: 30 RF: 0 docusate sodium [Colace] 100 mg capsule 100 mg PO BID PRNQty: 10 RF: 0 gabapentin 300 mg capsule 300 mg PO QHS Qty: 7 RF: 0 oxycodone 5 mg tablet 5 mg PO Q4H Qty: 18 RF: 0 Continued albuterol sulfate [ProAir HFA] 90 mcg/actuation HFA aerosol inhaler 2 puff Inhalation Q4H PRN Qty: 1 RF: 2 almotriptan malate 12.5 mg tablet 12.5 mg PO DAILY PRN (Reason: migraine headache) Qty: 10 RF: 4 fluticasone propionate [Flonase Allergy Relief] 50 mcg/actuation spray,suspension 2 spray FLORENTIN DAILY PRN (Reason: allergy symptoms) Qty: 9.9 RF: 4 Xarelto 20 mg tablet 20 mg PO DAILY Qty: 90 RF: 3 sertraline 100 mg tablet 200 mg PO DAILY Qty: 180 RF: 3 loratadine 10 mg Tablet 10 mg PO DAILY RF: 0 Changed celecoxib 100 mg capsule 100 mg PO BID Qty: 60 RF: 1 Discontinued cetirizine 10 mg tablet 10 mg PO DAILY RF: 0 Discharge Instructions Additional Instructions: Dr. Hanson?s Total Knee Discharge Instructions Activity: The most important activity is to walk. You should try to take short walks a few times a day. It is important that when resting you work on keeping the knees straight. Avoid putting a pillow behind the knees as this will encourage flexion. Work on range of motion exercises as provided by Physical Therapy and the preoperative booklet. - Start outpatient physical therapy within 2 weeks. - You should wear the AMANDA hose on both legs for 2 weeks. Dressing: Keep the surgical dressing (Mepilex) in place for at least one week. If you went home on the surgical day, you should remove the LENCHO wrap on the second day and then apply the AMANDA hose. The dressing may get wet after 3 days but avoid soaking the dressing. If it gets wet, just lightly pat dry. Most patient prefer to cover with ClingWrap or Saran Wrap to keep the dressing dry. After the first week, the dressing may be removed and replaced with light gauze and tape or nothing. Medications: - You should take Tylenol and anti-inflammatory Celebrex as your primary pain control medications - You have been prescribed a stronger pain medication Oxycodone for breakthrough pain, take as needed as prescribed. - You have also been prescribed a stomach acid reduction agent Pantoprozole to help reduce stomach acid and reflux. - You have another medication, Gabapentin, for nerve pain and restlessness at night. - You will be continuing Rivaroxaban for DVT prevention unless instructed otherwise. - If you have constipation you should take Colace or Miralax (both [id number]). Colace has been called in. It takes most people 3-4 days to have a bowel movement. Follow-up: 2 weeks. You should also call physical therapy to work on scheduling outpatient therapy sessions which can begin at 2 weeks. If you have any acute concerns or questions, please do not hesitate to contact the office at [phone]. You may contact Dr. Hanson with any questions after hours through the hospital at [phone] or on his cell phone at [phone]. Referrals: René Hanson MD [ [facility] STAFF PHYSICIAN] - Activity:: Activity as Tolerated Equipment/Supplies:: Walker Diet:: As Tolerated Discharge Orders Discharge Orders: Discharge Order (Routine); Ordered 08/07/19 Ordered By: René Hanson DS: Summary Status at Discharge Functional status at discharge: uses cane/walker Overall status at discharge: patient is progressing back to baseline Mental Status: mental status grossly normal Speech and Movement: speech and movement normal Mood: congruent mood Affect: normal affect Exam Psych Mental Status: mental status grossly normal Speech and Movement: speech and movement normal Mood: congruent mood Affect: normal affect DS: Data Vitals/I&O Vitals and I&O: Vital Signs Temperature 36.6 C 08/07/19 06:36 Pulse 57 L 08/07/19 06:36 Pulse Rhythm Regular 08/07/19 06:36 Respiratory Rate 18 08/07/19 06:36 Respiratory Effort 08/07/19 06:36 Respiratory Depth Normal 08/07/19 06:36 Respiratory Pattern Normal 08/07/19 06:36 Blood Pressure 122/77 08/07/19 06:36 Pulse Oximetry 96 08/07/19 06:36 Oxygen Delivery Method Room Air 08/07/19 06:36 Oxygen Flow Rate 0 08/07/19 06:36 Pain Level 5 08/07/19 06:36 Intake & Output 08/06/19 08/06/19 08/07/19 11:59 23:59 11:59 Weight 90.6 kg [facility] Medical History Allergic rhinitis (Chronic 12/06/13) RX Flonase 11/2013 (new RX) Arthralgia of hand (Resolved 12/06/13) x-rays OA Asthma Asthma (Chronic 05/24/13) Mild intermittent Woodstove, colds are triggers PRN Albuterol Chronic migraine w/o aura w/o status migrainosus, not intractable (Chronic 04/05/11) Current use of anticoagulant therapy (Chronic 10/30/12) s/p multiple PEs Depressive disorder (Chronic 04/05/11) L-T SSRI Family history of breast cancer (Chronic 08/26/15) See Family History HLD (hyperlipidemia) Hyperlipidemia (Chronic 09/01/15) 10/2016 labwork: 10-year ASCVD risk = 6.1% --> no statin indicated at this time, [facility] recommended nursing home (current) use of non-steroidal anti-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 (nsaid) (Chronic) Celebrex; Polyarthralgia Low grade squamous intraepithelial lesion (LGSIL) on cervical Pap smear (Inactive 09/15/15) Repeat 2017: Normal cells/neg HPV, next 2019 Migraines Pulmonary embolism (Chronic 07/13/06) Switched to Xarelto 10/30/2012 No definite source, p/w L leg pain. Neg w/u for coagulopathy Rheumatoid factor positive (Chronic) Per [facility] [place] Rheum phone consult s/p reviewing records & x-rays pt dx'ed: OA with low-titer RF Snoring (Chronic 12/06/13) With apnea Refer to sleep medicine when pt ready, 2013 Synovial cyst of popliteal space [Munoz], left knee (Chronic) ER 03/04/18 Surgical History Bursectomy L shoulder, 2004, Dr. Ridley [place] History of surgical removal of ganglion cyst (Acute) right hand S/P excision of lipoma (Inactive ~10/31/18) Tubal Ligation, 1995 [place] teeth extraction Family History Mother Rheumatoid arthritis Diabetes Essential hypertension Hyperlipidemia Mental disorder Bipolar disorder Father Substance abuse EtOH Diabetes Seizure disorder Sister , Overdose Substance abuse Mental disorder Bipolar disorder Sister Mental disorder Bipolar disorder Grandmother , Breast CA at age 44. Rheumatoid arthritis Personal history of malignant neoplasm Breast CA dx'ed 35 at 40 Maternal Aunt , MVA at age 58. 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
[2019-08-07] MEDS: Normal Saline 20 ML VIAL (08:29)
[2019-08-07] MEDS: Ketorolac 30 MG/ML VIAL (08:29)
--- NOTE | 2019-08-07 11:18 | W.PM.OP ---
Date of service: 08/07/19 Time of Service: 10:50 Operative Note Operative Note DATE OF PROCEDURE: 04/24/19 PRE-OP DIAGNOSIS: Bilateral Patellofemoral Arthritis POST-OP DIAGNOSIS: same PROCEDURE: Bilateral Patlleofemoral Replacement SURGEON: René Hanson TRAINING AND DEVELOPMENT DIRECTOR: Jesu Ernst TRAINING AND DEVELOPMENT DIRECTOR: Shaka Santana ANESTHESIA: regional and spinal ESTIMATED BLOOD LOSS: 300 PATHOLOGY: none sent TOURNIQUET TIME: 0 COMPLICATIONS: None Patient was transported to: PACU Patient's condition: stable Implants: RIGHT 1. Arthrosurface Kahuna Trochlear Component, 7x5mm 2. Depuy Attune Patellar Button, 35mm LEFT 1. Arthrosurface Kahuna Trochlear Component, 10x5mm 2. Depuy Attune Patellar Button, 32mm Indications: Anna is a 43 year old female who has had symptoms of bilateral patellofemoral arthritis. Conservative measures have been exhausted yet pain and dysfunction persisted. Please see office notes for complete details. Given the continued symptoms, I recommended a patellofemoral replacement. I reviewed the risks of the procedure to include bleeding, infection, pain, stiffness, worsening medial or lateral compartment arthritis, patellar instability, loosening, fracture, clot. Despite these risks, Anna elected to proceed. Findings: There was notable arthritic change within the patellofemoral compartment of both knees. The entire lateral trochlea was eburnated. The remainder of the knee did not show any extensive cartilage wear. Procedure Description: Anna was greeted in the preoperative holding area where the correct side was identified and marked. The consent was reviewed with the patient and signed. The history and physical was updated. All questions were answered. Preoperative mediacations were administered: Acetaminophen 1000mg, Celebrex 400mg, and Gabapentin 300mg. An adductor canal block was then administered by the anesthesia team in the PACU. She was taken back to the operating room. A spinal anesthestic was then administered. The patient was placed into the supine position on the operating room table. A nonsterile tourniquet was placed high onto the leg but not used. Posts were placed for positioning during the procedure. All bony prominences were well padded. Prophylactic antibiotics in the form of Cefazolin were administered. 1g of Tranxemic Acid was given intravenously within 30 minutes of incision. Both was then prepped with Chloraprep and draped in a standard fashion with impervious stockinette and extremity drape. A second prep with Chloraprep was performed prior to placing Ioband. A timeout to confirm correct identity, side and site, procedure, allergies, anesthesia, and medical concerns was performed. RIGHT SIDE With the knee in some flexion, a midline incision was made overlying the knee. Full thickness skin flaps were raised once the extensor mechanism was encountered. These were raised medially and laterally. Any bleeding was controlled with electrocautery. Once the extensor mechanism was fully exposed, a medial parapatellar arthrotomy was performed in a flexed position. All bleeding from the arthrotomy and the geniculate arteries was coagulated. The menisci and intrameniscal ligament was preserved. The Arthrosurface patellofemoral trial was then placed in the appropriate position and a single guidewire was placed through the center of this device. This was confirmed to be in appropriate location using the targeting arm. The trochlea was then sized in both directions corresponding to an 7x 5. The initial reamer was then placed and taken down to appropriate depth. The reaming and drill guide was then placed within this recess and secured with pins. Using both the centralized reamer and the edge reamer, the trochlear recess was prepared. A secondary reamer was used proximally for the Kahuna style component. The guide was removed and the edges were curetted for completeness. The central hole was then prepared with a drill and a tap. The outer surface screw was then inserted to the premeasured depth. The 7x5mm patellofemoral Kahuna trochlear component by Arthrosurface was then malleted into position sitting flush over the lateral and proximal lateral aspect. The knee was then brought into extension and the patella was measured as 23 mm. Using the patellar clamp and cut guide, this was resected to a flat surface with at least 13mm of thickness remaining. The size 35mm patella fit the best. This was oriented and then clamped into position. The lugs were drilled. High viscosity cement was prepared on the back table under vacuum preparation. When ready, cement was manually impacted into the cut surface of the patella and the patellar button was clamped into position and held. During this process attention was turned to the gutters of the knee and for all interfaces for any excess cement. While the cement was hardening, the knee was irrigated with Irrisept chlorhexadine solution. It was allowed to sit in the knee for 3 minutes. After the cement had finally cured, approximately 15min, the clamp was removed from the patella and the knee was taken through range of motion. The capsule was then reapproximated with a No. 1 Vicryl. The second dosing of 1g TXA was started. Deep tissues were then reapproximated with 0 Vicryl and 2-0 Vicryl. The skin was closed with a running 3-0 Monocryl in a subcuticular fashion. This was reinforced with skin glue. A Mepilex silver dressing was applied. Attention was then turned to the left knee. LEFT SIDE The left knee was prepped for a second time with Chloraprep. With the knee in some flexion, a midline incision was made overlying the knee. Full thickness skin flaps were raised once the extensor mechanism was encountered. These were raised medially and laterally. Any bleeding was controlled with electrocautery. Once the extensor mechanism was fully exposed, a medial parapatellar arthrotomy was performed in a flexed position. All bleeding from the arthrotomy and the geniculate arteries was coagulated. The menisci and intrameniscal ligament was preserved. The Arthrosurface patellofemoral trial was then placed in the appropriate position and a single guidewire was placed through the center of this device. This was confirmed to be in appropriate location using the targeting arm. The trochlea was then sized in both directions corresponding to an 10 x 5. The initial reamer was then placed and taken down to appropriate depth. The reaming and drill guide was then placed within this recess and secured with pins. Using both the centralized reamer and the edge reamer, the trochlear recess was prepared. The guide was removed and the edges were curetted for completeness. The central hole was then prepared with a drill and a tap. The outer surface screw was then inserted to the premeasured depth. The 10x5mm patellofemoral Kahuna trochlear component by Arthrosurface was then malleted into position sitting flush over the lateral and proximal lateral aspect. The knee was then brought into extension and the patella was measured as 23 mm. Using the patellar clamp and cut guide, this was resected to a flat surface with at least 13mm of thickness remaining. The size 32mm patella fit the best as the lateral aspect of the patella was very thin and angled. This section was contoured with a rongeur. The patella trial was oriented and then clamped into position. The lugs were drilled. High viscosity cement was prepared on the back table under vacuum preparation. When ready, cement was manually impacted into the cut surface of the patella and the patellar button was clamped into position and held. During this process attention was turned to the gutters of the knee and for all interfaces for any excess cement. While the cement was hardening, the knee was irrigated with Irrisept chlorhexadine solution. It was allowed to sit in the knee for 3 minutes. After the cement had finally cured, approximately 15min, the clamp was removed from the patella and the knee was taken through range of motion. The capsule was then reapproximated with a No. 1 Vicryl. The second dosing of 1g TXA was started. Deep tissues were then reapproximated with 0 Vicryl and 2-0 Vicryl. The skin was closed with a running 3-0 Monocryl in a subcuticular fashion. This was reinforced with skin glue. A Mepilex silver dressing was applied. [id number] LENCHO wraps were placed on both knees. A CryoCuff was applied. Anna was transferred to the hospital bed without difficulty an suffering no apparent complication. Anna has a good prognosis. Physical therapy will start today and without restrictions, weight-bearing as tolerated. Rivaroxaban 20 mg daily, her home and regular anticoagulation regimen, will be used for DVT prophylaxis.
--- NOTE | 2019-08-07 13:07 | NUR.NOTE ---
Patient arrived to the floor at 1113 and admitted to room 206 from the PACU. Pt in stable condition when she arrived to the floor. SONU Calhoun
--- NOTE | 2019-08-07 13:12 | IN_ITS ---
Date of service: 08/07/19 Time of Service: 13:12 PT Notes Visit Reasons: BILATERAL PATELLOFEMORAL ARTHRITIS Physical Therapy Inpatient Initial Evaluation Date: 08/07/2019 Referring Doctor: René Hanson MD PT Orders: PT CONSULT: Status post Ortho surgery. Status post bilateral patellofemoral replacement. Precautions: Fall. Standard. WBAT on BLE. Patient Profile/Admitting Diagnosis: Kelly is a 43-year-old female with patellofemoral arthritis of both knees and is status post bilateral patellofemoral arthroplasty on postoperative day 0. PMHX: Medical History (Updated 05/30/19 @ 14:53 by Vita Martinez) Allergic rhinitis (Chronic 12/06/13) RX Flonase 11/2013 (new RX) Arthralgia of hand (Resolved 12/06/13) x-rays OA Asthma Asthma (Chronic 05/24/13) Mild intermittent Woodstove, colds are triggers PRN Albuterol Chronic migraine w/o aura w/o status migrainosus, not intractable (Chronic 04/05/11) Current use of anticoagulant therapy (Chronic 10/30/12) s/p multiple PEs Depressive disorder (Chronic 04/05/11) L-T SSRI Family history of breast cancer (Chronic 08/26/15) See Family History HLD (hyperlipidemia) Hyperlipidemia (Chronic 09/01/15) 10/2016 labwork: 10-year ASCVD risk = 6.1% --> no statin indicated at this time, 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 Neg w/u for coagulopathy Rheumatoid factor positive (Chronic) Per [facility] [place] Rheum phone consult s/p reviewing records & x-rays pt dx'ed: OA with low-titer RF Snoring (Chronic 12/06/13) With apnea Refer to sleep medicine when pt ready, 2013 Synovial cyst of popliteal space [Munoz], left knee (Chronic) ER 03/04/18 Surgical History Bursectomy L shoulder, 2005, Dr. Ridley Potwin History of surgical removal of ganglion cyst (Acute) right hand S/P excision of lipoma (Inactive ~10/31/18) Tubal Ligation, 1995 [place] teeth extraction Social History/Home Situation: Kelly lives alone in a private home with 4 steps to enter with rails on both sides. 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. Independent with all aspects of ADLs prior to surgery. Equipment Owned/DME: None Subjective: Patient reports that her bottom and her thighs feel weird, feels like sitting on a balance ball. She is concerned too about wetting the bed and hopes that her bladder control comes back soon. She felt an ache about 2/10 on the back of her left knee while walking but subsided with rest. Objective: General Observation: Cryo/Cuff in B knees. Paul wraps on B knees. IV in the right UE. Mental Status: Alert and oriented x10 Pain: 2/10 pain on the back on left popliteal area with walking Vital Signs: Within normal limits as monitored by nursing staff before and after PT session ROM: Right Upper Extremity: Shoulder Flexion WFL. Shoulder abduction WFL. Elbow flexion WFL. Wrist flexion WFL. Opening and closing of hand WFL. Left Upper Extremity: Shoulder Flexion WFL. Shoulder abduction WFL. Elbow flexion WFL. Wrist flexion WFL. Opening and closing of hand WFL. Right Lower Extremity: Hip flexion WFL. Hip abduction WFL. Knee flexion WFL. Ankle dorsiflexion WFL. Ankle plantarflexion WFL. Left Lower Extremity: Hip flexion WFL. Hip abduction WFL. Knee flexion WFL. Ankle dorsiflexion WFL. Ankle plantarflexion WFL. Strength: Right Upper Extremity: Shoulder flexors 5/5. Shoulder abductors 5/5. Elbow flexors 5/5. Elbow extensors 5/5. Environmental Analyst strong. Left Upper Extremity: Shoulder flexors 5/5. Shoulder abductors 5/5. Elbow flexors 5/5. Elbow extensors 5/5. Environmental Analyst strong. Right Lower Extremity: Hip flexors 4-/5. Hip abductors 4-/5. Knee flexors 5/5. Knee extensors 4-/5. Ankle dorsiflexors 5/5. Ankle plantarflexors 5/5. Left Lower Extremity: Hip flexors 4-/5. Hip abductors 4-/5. Knee flexors 5/5. Knee extensors 4-/5. Ankle dorsiflexors 5/5. Ankle plantarflexors 5/5. Sensation: Diminished as to pressure on bilateral gluteal areas and thighs. Bed Mobility/Transfers: Rolling standby assist Supine to sit standby assist Sit to supine standby assist Sit to stand minimal assist of 2, needs front wheeled walker Stand to sit minimal assist of 2, needs front wheeled walker Bed to chair contact-guard assist of 2 using front wheeled walker Chair to bed contact-guard assist of 2 using front wheeled walker Gait: Patient tolerated level surface ambulation of 100 feet using front wheeled walker with WBAT on BLE requiring minimal assist. Step to gait pattern. Delayed and incomplete bilateral quadriceps activation resulted to increase trunk extension to facilitate limb advancement during the first 30 feet. Patient was keeping trunk more erect towards the end of ambulation as she is able to achieve and sustain full knee extension at each mid stance. Wheelchair follow by SONU Gold and IV pole management of nurse Hutchinson were needed for safety. Balance: Static Sitting: Normal Dynamic Sitting: Normal Static Standing: Fair Dynamic Standing: Fair Special Tests: Mobility Limitations Standardized Measure [facility] AM-PAC 6 clicks Basic Mobility Inpatient Short Form: Raw Score: 17 CMS Score: 51% deficit Informed Consent/Education: Patient instructed in purpose of PT consult and plan of care. Assessment: Kelly demonstrates functional mobility decline requiring the use of a front wheeled walker for all mobility ADL performance, incomplete/delayed quad activation bilaterally, difficulty with walking, and unsteadiness of gait due to postoperative status. Kelly is a 43-year-old female with patellofemoral arthritis of both knees and is status post bilateral patellofemoral arthroplasty on postoperative day 0. Patient presents with clinical signs and symptoms consistent with current/admitting diagnoses that have resulted to mobility limitations, gait instability, generalized weakness, and impairment of motor control as demonstra denny by the following impairment level findings: 1. Decreased strength to B knee major muscle groups 2. Impaired standing balance 3. Impaired activity tolerance 4. Impaired sensation to B gluteal and femoral areas 5. Incomplete/delayed B quad activation resulting from anesthesia Impairments are contributing to the following functional limitations: 1. Inability to safely ambulate without assistive device and physical assistance 2. Increase completion time for mobility ADL performance 3. Increased fall risk 4. Inability to negotiate steps alone safely Patient is assessed as a 162 moderate complexity based on the following: History: 43-year-old female with impairment level findings, functional limitations, and past medical history as indicated above Examination: Demonstrable impairment in strength, balance, and mobility level with underlying impairments and functional limitations as documented above Presentation:Evolving Decision Makin moderate complexity Goals: Goals X 1 day 1. Supine-Sit independent 2. Sit-Supine independent 3. Sit-Stand independent 4. Stand-Sit independent 5. Bed-Chair independent 6. Chair-Bed independent 7. Independent gait on level surface with use of least restrictive device for at least 300 feet without report of pain nor dyspnea 8. Independent stair negotiation while holding onto bilateral rails for at least 5 steps without report of pain nor dyspnea 9. Independent with home exercise program 10. Good static and dynamic standing balance/tolerance Plan of Care/Treatment Plan: 1-2x/day/3 days. Plan of care has been reviewed with the ROUGE SIFTER providing the service under Physical Therapy direction. Initiate Physical Therapy intervention for strengthening, bed mobility, transfers, gait, stairs, balance training, use of assistive device. DISCHARGE RECOMMENDATIONS: Home when medically cleared by orthopedic surgeon. We will been from the use of a front wheeled walker to maximize independence with mobility ADL performance at home. Outpatient physical therapy services according to orthopedic surgeon timeline recommendation. TREATMENT CODE/TIME: 03500 x 30 minutes, 38567 x 13 minutes beginning at 13:12 PM. Thank you very much for this referral. Yolette Swanson PT, DPT, CLT [facility] [place], [place]
[2019-08-07] MEDS: ceFAZolin 1 GM/50 ML BAG IVPB (13:51)
[2019-08-07] MEDS: oxyCODONE 5 MG TAB PO (17:37)
--- NOTE | 2019-08-08 18:00 | PT.INDS ---
Date of service: 08/08/19 PT Notes Visit Reasons: BILATERAL PATELLOFEMORAL ARTHRITIS Inpatient Physical Therapy Discharge Summary Dates: 08/08/2019 Dates of Service: 08/07/2019 only This is a clinical summary of care provided on the duration of dates listed above. No charge was made in the completion of this documentation. Referring Doctor: René Hanson MD PT Orders: PT CONSULT: Status post Ortho surgery. Status post bilateral patellofemoral replacement. Precautions: Fall. Standard. WBAT on BLE. Patient Profile/Admitting Diagnosis: Kelly is a 43-year-old female with patellofemoral arthritis of both knees and is status post bilateral patellofemoral arthroplasty on postoperative day 0 on day of discharge. PMHX: Medical History (Updated 05/30/19 @ 14:53 by Vita Martinez) Allergic rhinitis (Chronic 12/06/13) RX Flonase 11/2013 (new RX) Arthralgia of hand (Resolved 12/06/13) x-rays OA Asthma Asthma (Chronic 05/24/13) Mild intermittent Woodstove, colds are triggers PRN Albuterol Chronic migraine w/o aura w/o status migrainosus, not intractable (Chronic 04/05/11) Current use of anticoagulant therapy (Chronic 10/30/12) s/p multiple PEs Depressive disorder (Chronic 04/05/11) L-T SSRI Family history of breast cancer (Chronic 08/26/15) See Family History HLD (hyperlipidemia) Hyperlipidemia (Chronic 09/01/15) 10/2016 labwork: 10-year ASCVD risk = 6.1% --> no statin indicated at this time, LSMs recommended half-way (current) use of non-steroidal anti-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 (nsaid) (Chronic) Celebrex; Polyarthralgia Low grade squamous intraepithelial lesion (LGSIL) on cervical Pap smear (Inactive 09/15/15) Repeat 2017: Normal cells/neg HPV, next 2019 Migraines Pulmonary embolism (Chronic 07/13/06) Switched to Xarelto 10/30/2012 No definite source, p/w L leg pain. Neg w/u for coagulopathy Rheumatoid factor positive (Chronic) [place] [facility]um phone consult s/p reviewing records & x-rays pt dx'ed: OA with low-titer RF Snoring (Chronic 12/06/13) With apnea Refer to sleep medicine when pt ready, 2013 Synovial cyst of popliteal space [Munoz], left knee (Chronic) ER 03/04/18 Surgical History Bursectomy L shoulder, 2004, Dr. Ridley [place] History of surgical removal of ganglion cyst (Acute) right hand S/P excision of lipoma (Inactive ~10/31/18) Tubal Ligation, 1995 [place] teeth extraction Social History/Home Situation: Kelly lives alone in a private home with 4 steps to enter with rails on both sides. 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 Independent with all aspects of ADLs prior to surgery. Equipment Owned/DME: None Subjective: NT Objective: General Observation: NT Mental Status: NT Pain: NT ROM: Right Upper Extremity: Shoulder Flexion WFL. Shoulder abduction WFL. Elbow flexion WFL. Wrist flexion WFL. Opening and closing of hand WFL. Left Upper Extremity: Shoulder Flexion WFL. Shoulder abduction WFL. Elbow flexion WFL. Wrist flexion WFL. Opening and closing of hand WFL. Right Lower Extremity: Hip flexion WFL. Hip abduction WFL. Knee flexion WFL. Ankle dorsiflexion WFL. Ankle plantarflexion WFL. Left Lower Extremity: Hip flexion WFL. Hip abduction WFL. Knee flexion WFL. Ankle dorsiflexion WFL. Ankle plantarflexion WFL. Strength: Right Upper Extremity: Shoulder flexors 5/5. Shoulder abductors 5/5. Elbow flexors 5/5. Elbow extensors 5/5. Supervisor Crack Off strong. Left Upper Extremity: Shoulder flexors 5/5. Shoulder abductors 5/5. Elbow flexors 5/5. Elbow extensors 5/5. Supervisor Crack Off strong. Right Lower Extremity: Hip flexors 4-/5. Hip abductors 4-/5. Knee flexors 5/5. Knee extensors 4-/5. Ankle dorsiflexors 5/5. Ankle plantarflexors 5/5. Left Lower Extremity: Hip flexors 4-/5. Hip abductors 4-/5. Knee flexors 5/5. Knee extensors 4-/5. Ankle dorsiflexors 5/5. Ankle plantarflexors 5/5. Sensation: Diminished as to light pressure on bilateral gluteal areas and thighs. Bed Mobility/Transfers: Rolling standby assist Supine to sit standby assist Sit to supine standby assist Sit to stand minimal assist of 2, needs front wheeled walker Stand to sit minimal assist of 2, needs front wheeled walker Bed to chair contact-guard assist of 2 using front wheeled walker Chair to bed contact-guard assist of 2 using front wheeled walker Gait: Patient tolerated level surface ambulation of 100 feet using front wheeled walker with WBAT on BLE requiring minimal assist. Step to gait pattern. Delayed and incomplete bilateral quadriceps activation resulted to increase trunk extension to facilitate limb advancement during the first 30 feet. Patient was keeping trunk more erect towards the end of ambulation as she is able to achieve and sustain full knee extension at each mid stance. Wheelchair follow by SONU Gold and IV pole management of nurse Hutchinson were needed for safety. Balance: Static Sitting: Normal Dynamic Sitting: Normal Static Standing: Fair Dynamic Standing: Fair Assessment: Kelly demonstrates functional mobility decline requiring the use of a front wheeled walker for all mobility ADL performance, incomplete/delayed quad activation bilaterally, difficulty with walking, and unsteadiness of gait due to postoperative status. Kelly is a 43-year-old female with patellofemoral arthritis of both knees and is status post bilateral patellofemoral arthroplasty on postoperative day 0 on day of discharge. Goals: Goals X 1 day 1. Supine-Sit independent NOT MET 2. Sit-Supine independent NOT MET 3. Sit-Stand independent NOT MET 4. Stand-Sit independent NOT MET 5. Bed-Chair independent NOT MET 6. Chair-Bed independent NOT MET 7. Independent gait on level surface with use of least restrictive device for at least 300 feet without report of pain nor dyspnea NOT MET 8. Independent stair negotiation while holding onto bilateral rails for at least 5 steps without report of pain nor dyspnea NOT MET 9. Independent with home exercise program NOT MET 10. Good static and dynamic standing balance/tolerance NOT MET DISCHARGE RECOMMENDATIONS: Home when medically cleared by orthopedic surgeon. We will been from the use of a front wheeled walker to maximize independence with mobility ADL performance at home. Outpatient physical therapy services according to orthopedic surgeon timeline recommendation. TREATMENT CODE/TIME: NC. Thank you very much for this referral. Yolette Swanson PT, DPT, CLT [facility] [place], [place]
== END 2019-08-07 19:45 | disposition home or self-care (01) ==
LOC: PDS 07:28 → MS 11:07 → PDS 12:20 → MS 12:21
PROVIDERS: Admitting Provider Student in an Organized Health Care Education/Training Program; PCP Nurse Practitioner Adult Health; Visit Provider Student in an Organized Health Care Education/Training Program
PROC: 0QRF0JZ Replacement of Left Patella with Synthetic Substitute, Open Approach (ICD-10-PCS; CPT 27437; principal; 2019-08-07 07:30)
DX: M17.12 Unilateral primary osteoarthritis, left knee (principal); M17.11 Unilateral primary osteoarthritis, right knee; M25.561 Pain in right knee; M25.562 Pain in left knee; Z79.01 Long term (current) use of anticoagulants
CPT/HCPCS: 27438; C1776; 76942; 81025; 97162; 97530; NC; G0378; J0690; J1885; J2250; J2405

== ENCOUNTER 2019-08-22 12:11 | Outpatient (CLI) | payer MEDICAID, SELFPAY ==
--- NOTE | 2019-08-22 12:00 | DI.RAD_ITS ---
EXAM: XR KNEE LT 3V AP,LAT,AMALIA CLINICAL HISTORY: PF replacement. TECHNIQUE: 2D digital imaging was performed. COMPARISON: CR XR KNEE LT 4V AP,LAT,AMALIA,PAT from 03/29/2019 FINDINGS: BONES: No acute fracture is present. No bony destructive lesion is seen. JOINTS: The knee is normally aligned. No joint effusion is seen. A patellofemoral joint prosthesis has been placed since the previous exam. The femoral tibial joint spaces are well maintained. There is spurring from the tibial plateaus and femoral condyles. SOFT TISSUE: The anterior soft tissue swelling is seen. IMPRESSION: Status post placement of patellofemoral prosthesis. DATA REPOSITORY: RADIATION DOSE DELIVERED:
--- NOTE | 2019-08-22 12:00 | DI.RAD_ITS ---
EXAM: XR KNEE RT 3V AP,LAT,AMALIA INDICATION: PF replacement. COMPARISON: CR XR KNEE RT 4V AP,LAT,AMALIA,PAT from 03/29/2019 CR XR KNEE LT 4V AP,LAT,AMALIA,PAT from 03/29/2019 CR XR KNEE LT 3V AP,LAT,AMALIA from 08/22/2019 TECHNIQUE: 2D digital imaging was performed. FINDINGS: A patellofemoral joint prosthesis has been placed since the previous exam. No abnormal bony lucenci es are seen. The femoral tibial joint spaces are well maintained. There is spurring from the latera l femoral condyle and lateral tibial plateau. There is anterior soft tissue swelling. DATA REPOSITORY: RADIATION DOSE DELIVERED:
== END 2019-08-22 12:31 ==
PROVIDERS: PCP Nurse Practitioner Adult Health; Referring Provider Nurse Practitioner Adult Health; Visit Provider Physician Assistant
DX: Z96.653 Presence of artificial knee joint, bilateral (principal); M79.89 Other specified soft tissue disorders
CPT/HCPCS: 73562

== ENCOUNTER 2019-11-14 06:42 | Emergency (ER) | payer MEDICAID, SELFPAY ==
--- NOTE | 2019-11-14 06:45 | ED.GENADUL_ITS ---
Discharge Plan Disposition Patient Disposition: HOME Condition: Stable Discharge Details Clinical Impression: Knee pain, right Primary Care Provider: Michell Simmons ED Provider: Jorge Alberto Norris Home Meds and New Rx's Prescriptions: Continued cyclobenzaprine 5 mg tablet 5 mg PO QHS MDD 10mg PRN (Reason: muscle spasm) Qty: 30 RF: 0 albuterol sulfate [ProAir HFA] 90 mcg/actuation HFA aerosol inhaler 2 puff Inhalation Q4H PRN Qty: 1 RF: 2 fluticasone propionate [Flonase Allergy Relief] 50 mcg/actuation spray,suspension 2 spray FLORENTIN DAILY PRN (Reason: allergy symptoms) Qty: 9.9 RF: 4 Xarelto 20 mg tablet 20 mg PO DAILY Qty: 90 RF: 3 sertraline 100 mg tablet 200 mg PO DAILY Qty: 180 RF: 3 acetaminophen 500 mg tablet 1,000 mg PO Q8H PRN (Reason: pain) Qty: 90 RF: 3 celecoxib 100 mg capsule 100 mg PO BID Qty: 60 RF: 1 Discharge Instructions Instructions: Knee Pain (ED) Additional Instructions: Please follow-up with orthopedics. You have an appointment with orthopedics scheduled for Monday at 9 AM. Use Paul wrap and rest your knee. Please take acetaminophen (tylenol) - 650mg every 6 hours by mouth as needed for pain. Return to the ER for any worsening or new concerning symptoms. Referrals: [facility] [Provider Group] Discharge Data Discharge Date/Time-TO BE ENTERED AT DEPARTURE: 11/14/19 11:45 Medical Decision Making <Cody Adkins MD - Last Filed: 11/14/19 07:08> Patient presenting with right lower extremity pain and swelling. She is on Xarelto with previous history of clot. She is concerned, despite not missing any doses of medications, of recurrent clot. Seems to be having more muscle spasm than anything. She has had cyclobenzaprine as needed since her bilateral knee surgeries. She did take some last night. She is also been taking Tylenol since that surgery. She took Tylenol this morning. Will give Flexeril. Will obtain ultrasound. Medical Records Medical records reviewed: Yes I reviewed the patient's medical records. <Jorge Alberto Norris MD - Last Filed: 11/14/19 21:38> Care signed out by Dr. Adkins with plan to follow-up on ultrasound. Ultrasound interpreted by radiology: Negative for DVT. I consulted orthopedics. Labs reviewed and normal ESR and normal CRP. X-rays of the knee and tib-fib unremarkable. Dr. Bhat evaluated the patient at bedside and recommends Paul wrap and outpatient follow-up. HPI <Cody Adkins MD - Last Filed: 11/14/19 07:08> General Mode of arrival: wheelchair . Date/Time Provider Initiated Documentation: 11/14/19 06:43 . Limitations to Documentation: no limitations . Information obtained by: patient, RN notes reviewed and old records reviewed . HPI Narrative: Patient presents to ED with right lower extremity pain and swelling. Patient reports noticing some discomfort and swelling 4 days ago. Seems to be getting worse. This morning noticed that her superficial veins seem to be popping out and the pain was worse. She does describe the pain being like charley horse pain but has history of blood clot and despite being on Xarelto is concerned that she has recurrent clot. She complains of her foot being tingly. She denies fever, shortness of breath, chest pain. She is status post bilateral partial knee replacement 3 months ago. She is done well from that. Related Data Home Medications Medication Instructions Recorded Confirmed albuterol sulfate 90 mcg/actuation 2 puff INHALATION Q4H PRN #1 12/28/18 11/14/19 aerosol inhaler inhaler fluticasone propionate 50 2 spray FLORENTIN DAILY PRN #9.9 ml 07/17/19 11/14/19 mcg/actuation nasal spray,suspension rivaroxaban 20 mg tablet 20 mg PO DAILY #90 tab 07/17/19 11/14/19 sertraline 100 mg tablet 200 mg PO DAILY #180 tab-cap 07/17/19 11/14/19 acetaminophen 1,000 mg PO Q8H PRN #90 tab 08/07/19 11/14/19 celecoxib 100 mg PO BID #60 cap 08/07/19 11/14/19 cyclobenzaprine 5 mg tablet 5 mg PO QHS PRN #30 tab MDD 10mg 10/31/19 11/14/19 Previous Rx's Medication Instructions Recorded albuterol sulfate 90 mcg/actuation 2 puff INHALATION Q4H PRN #1 12/28/18 aerosol inhaler inhaler fluticasone propionate 50 2 spray FLORENTIN DAILY PRN #9.9 ml 07/17/19 mcg/actuation nasal spray,suspension rivaroxaban 20 mg tablet 20 mg PO DAILY #90 tab 07/17/19 sertraline 100 mg tablet 200 mg PO DAILY #180 tab-cap 07/17/19 acetaminophen 1,000 mg PO Q8H PRN #90 tab 08/07/19 celecoxib 100 mg PO BID #60 cap 08/07/19 cyclobenzaprine 5 mg tablet 5 mg PO QHS PRN #30 tab MDD 10mg 10/31/19 Allergies Allergy/AdvReac Type Severity Reaction Status Date / Time naproxen Allergy Severe anaphilaxis Verified 10/31/19 10:30 hyaluronic acid Allergy Mild Knee Verified 10/31/19 10:30 injection--worsened pain bupropion Allergy Unknown hives Verified 10/31/19 10:30 General MANISH: 4 Review of Systems <Cody Adkins MD - Last Filed: 11/14/19 07:08> Narrative: As documented in HPI otherwise negative as below. Const: no fever, chills, weakness Resp: no cough, SOB, pleuritic pain CV: no CP, diaphoresis, edema, syncope GI: no abdominal pain, nausea, vomiting, diarrhea Neuro: no headache, focal weakness, confusion PFSH <Cody Adkins MD - Last Filed: 11/14/19 07:08> Medical History (Updated 11/14/19 @ 11:47 by Colten Bhat MD) Allergic rhinitis (12/06/13) RX Flonase 11/2013 (new RX) Arthralgia of hand (12/06/13) x-rays OA Asthma Asthma (05/24/13) Mild intermittent Woodstove, colds are triggers PRN Albuterol Chronic migraine w/o aura w/o status migrainosus, not intractable (04/05/11) Current use of anticoagulant therapy (10/30/12) s/p multiple PEs Depressive disorder (04/05/11) L-T SSRI Family history of breast cancer (08/26/15) See Family History HLD (hyperlipidemia) Hyperlipidemia (09/01/15) 10/2016 labwork: 10-year ASCVD risk = 6.1% --> no statin indicated at this time, LSMs recommended intermediate (current) use of non-steroidal anti-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 (nsaid) Celebrex; Polyarthralgia Low grade squamous intraepithelial lesion (LGSIL) on cervical Pap smear (09/15/15) Repeat 2017: Normal cells/neg HPV, next 2019 Migraines Pulmonary embolism (07/13/06) Switched to Xarelto 10/30/2012 No definite source, p/w L leg pain. Neg w/u for coagulopathy Rheumatoid factor positive Per [facility] Rheum phone consult s/p reviewing records & x-rays pt dx'ed: OA with low-titer RF Snoring (12/06/13) With apnea Refer to sleep medicine when pt ready, 2013 Synovial cyst of popliteal space [Munoz], left knee ER 03/04/18 Urge and stress incontinence Surgical History Bursectomy L shoulder, 2004, Dr. Keyana Bentley History of partial knee replacement (08/07/19) Bilateral patellofemoral replacements: 08/07/2019 History of surgical removal of ganglion cyst right hand S/P excision of lipoma (~10/31/18) Tubal Ligation, 1995 [place] teeth extraction Family History Mother Rheumatoid arthritis Diabetes Essential hypertension Hyperlipidemia Mental disorder Bipolar disorder Father Substance abuse EtOH Diabetes Seizure disorder Sister , Overdose Substance abuse Mental disorder Bipolar disorder Sister Mental disorder Bipolar disorder Grandmother , Breast CA at age 44. Rheumatoid arthritis Personal history of malignant neoplasm Breast CA dx'ed 35 at 40 Maternal Aunt , MVA at age 58. 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 Sexually active: No Current gender identity: female What type of physical activity do you participate in: none Seatbelt use: always Drive intox or ride w/intox driver supervisor: No Water heater temp set <120 deg: Yes Working smoke detector in home: Yes Fire extinguisher in home: Yes Carbon monox detector in home: Yes Do you feel safe at home: Yes Do you feel safe in your relationship?: Yes Additional Social history: Im not in one, its great Female Reproductive History Menstrual Menopause type: natural Date of menopause: 07/14/17 Exam <Cody Adkins MD - Last Filed: 11/14/19 07:08> Narrative Exam Narrative: Vitals: Afebrile. Elevated blood pressure otherwise normal vitals and normal room air pulse ox. Const: WDWN female in NAD. HEENT: NC/AT. Normal facial exam. Eyes: Normal conjunctiva and sclera. Neck: Supple. Trachea midline. Lungs: Normal respiratory effort. Cor: RRR. Good distal pulses. Neuro: A+O x 3. Normal speech, mentation, gait. Cranial nerves II - XII grossly intact. No gross motor or sensory deficit. Ext: No C/C. No appreciable lower extremity edema. No distended veins. Pain and tenderness proximal and distal posterior leg. Skin: Warm and dry without erythema or warmth or rash. Sign Out <Cody Adkins MD - Last Filed: 11/14/19 07:08> Sign Out Data: Sign Out Comment: Signed out to Dr. Norris pending ultrasound Last updated by Cody Adkins MD at 11/14/19 07:49
[2019-11-14 06:46] VITALS: BP 154/70; PULSE 87; RESP 16; TEMP 36.1; O2SAT 99
--- NOTE | 2019-11-14 07:00 | DI.US_ITS ---
EXAM: US LOWER EXTREMITY VENOUS RT CLINICAL HISTORY: swelling/pain RLE; hx of clot. TECHNIQUE: Lower extremity venous ultrasound performed using grayscale, color-flow, and spectral Dop pler analysis. COMPARISON: No exams were available for comparison FINDINGS: The common femoral, femoral and popliteal veins demonstrate normal compressibility, augmentation, and color Doppler. The posterior tibial veins are patent. The saphenous vein appears free of thrombus. No Munoz's cyst or hematoma is seen. IMPRESSION: No evidence of DVT. DATA REPOSITORY:
[2019-11-14] MEDS: Cyclobenzaprine 10 MG TAB PO (07:15)
[2019-11-14 08:06] VITALS: BP 117/62; PULSE 52; RESP 16; TEMP 36.7; O2SAT 98
[2019-11-14 09:22] VITALS: BP 117/82; PULSE 62; RESP 20; O2SAT 96
--- NOTE | 2019-11-14 09:30 | DI.RAD_ITS ---
EXAM: XR TIB/FIB RT CLINICAL HISTORY: pain proximal lower leg. TECHNIQUE: 2D digital imaging was performed. COMPARISON: No exams were available for comparison FINDINGS: BONES: No acute fracture is present. No bony destructive lesion is seen. Visualized portion of knee a nd ankle joints are unremarkable. A patellofemoral joint prosthesis is seen. SOFT TISSUE: Normal. IMPRESSION: Unremarkable radiographs of the right tibia and fibula. DATA REPOSITORY: RADIATION DOSE DELIVERED:
--- NOTE | 2019-11-14 09:30 | DI.RAD_ITS ---
EXAM: XR KNEE RT 3V AP,LAT,AMALIA CLINICAL HISTORY: pain TECHNIQUE: 2D digital imaging was performed. COMPARISON: CR XR KNEE RT 3V AP,LAT,AMALIA from 08/22/2019 FINDINGS: A patellofemoral joint prosthesis is noted. No fracture is identified. There is spurring at the fe moral tibial joint spaces which are well maintained. No definite effusion is seen. IMPRESSION: No acute abnormality.
[2019-11-14 09:39] VITALS: BP 123/74; PULSE 60; RESP 16; O2SAT 99
[2019-11-14 10:03] LABS: Abs Immature Grans 0.01 10^3/uL (0.0-0.06); Absolute Basophil Count 0.05 10^3/uL (0.0-0.2); Absolute Eosinophil Count 0.12 10^3/uL (0.0-0.7); Absolute Monocyte Count 0.49 10^3/uL (0.1-0.8); Absolute Neutrophil Count 2.51 10^3/uL (1.2-6.7); Eosinophils % 2.4; HCT 43.6 % (36.0-46.0); HGB 15.4 g/dL (11.2-15.7); Immature Grans % 0.2; Lymphocytes % 37.4; MCH 32.9 pg (27.0-33.0); MCHC 35.3 % (32.0-36.0); MCV 93.2 fL (80-95); MPV 9.5 fL (8.0-11.0); Monocytes % 9.6; Neutrophils % 49.4; Nucleated RBC 0 %; Platelet Count 275 10^3/uL (130-400); RBC 4.68 10^6/uL (3.93-5.22); RDW 12.5 % (11.7-14.6); WBC 5.08 10^3/uL (4.4-10.8)
[2019-11-14 10:14] LABS: Anion Gap 6.3 mmol/L (3-11); BUN 13 mg/dL (7-18); CO2 26.7 mmol/L (21.0-32.0); CREATININE 0.54 mg/dL (0.55-1.02); Calcium 8.9 mg/dL (8.5-10.1); Chloride 104 mmol/L (98-107); Glucose 94 mg/dL (74-106); Potassium 4.4 mmol/L (3.5-5.1); Sodium 137 mmol/L (136-145)
[2019-11-14 10:23] LABS: C-Reactive Protein 0.09 mg/dL (0.0-0.3)
[2019-11-14 11:06] LABS: ESR 7 mm/hr (0-20)
[2019-11-14 11:35] VITALS: BP 124/80; PULSE 66; RESP 18; O2SAT 98
[2019-11-14] MEDS: Acetaminophen 325 MG TAB 650 MG PO (11:40)
--- NOTE | 2019-11-14 11:40 | OCONE_ITS ---
Date of service: 11/14/19 Time of Service: 11:40 History of Present Illness History of Present Illness Chief Complaint: Right knee pain Narrative: Right knee pain for approximately 4 days. No trauma. No fevers, chills, redness, or drainage. Pain anteriorly at the joint line and radiates down the anterior woods. Some mechanical clicking popping symptoms. No patellar dislocation or instability. Was doing very well postoperatively until this recent exacerbation. History bilateral patellofemoral arthroplasty by Dr. Hanson on 08/07/19 Remote history of DVT on Xarelto Consult Reason Right knee pain after orthopedic surgery Assessment and Plan Assessment and plan (1) Knee pain, right: Status: Acute Assessment and plan: 44-year-old female 3+ months status post bilateral partial patellofemoral knee replacements. Patient was doing well until earlier this week when she has had an acute exacerbation and possible mechanical symptoms about her right knee without trauma. No signs of infection or DVT. Inflammatory markers and plain radiographs very reassuring. Discussed holding off on physical therapy until acute pain resolves. Recommend ice, compression, elevation and anti-inflammatory medication as tolerated Follow-up appointment arranged with our physician inside sales assistant early next week for clinical reevaluation Discussed signs and symptoms of prosthetic joint infection potential future need for joint aspiration All questions were answered Agree and understand treatment plan Will call if any changes or concerns Case discussed with primary surgeon Dr. Hanson who knows the patient and agrees with the above assessment and plan Qualifiers: Chronicity: acute Qualified Code(s): M25.561 - Pain in right knee (2) History of partial knee replacement: Status: Acute Review of Systems Constitutional Constitutional: Denies chills and Denies fever(s) Cardiovascular Cardiovascular: Denies chest pain with activity, Denies irregular heart rhythm and Denies dyspnea Respiratory Respiratory: Denies cough and Denies dyspnea Gastrointestinal Gastrointestinal: Denies nausea and Denies vomiting Musculoskeletal Musculoskeletal: Reports as per HPI Integumentary/Breasts Skin/Breast: Denies rash and Denies wounds Neurologic Neurologic: Reports as per HPI Allergic/Immunologic Allergic/Immunologic: Reports as per HPI [facility] Medical History (Updated 11/14/19 @ 11:47 by Colten Bhat MD) Allergic rhinitis (12/06/13) RX Flonase 11/2013 (new RX) Arthralgia of hand (12/06/13) x-rays OA Asthma Asthma (05/24/13) Mild intermittent Woodstove, colds are triggers PRN Albuterol Chronic migraine w/o aura w/o status migrainosus, not intractable (04/05/11) Current use of anticoagulant therapy (10/30/12) s/p multiple PEs Depressive disorder (04/05/11) L-T SSRI Family history of breast cancer (08/26/15) See Family History HLD (hyperlipidemia) Hyperlipidemia (09/01/15) 10/2016 labwork: 10-year ASCVD risk = 6.1% --> no statin indicated at this time, LSMs recommended patient support partner (current) use of non-steroidal anti-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 (nsaid) Celebrex; Polyarthralgia Low grade squamous intraepithelial lesion (LGSIL) on cervical Pap smear (09/15/15) Repeat 2017: Normal cells/neg HPV, next 2019 Migraines Pulmonary embolism (07/13/06) Switched to Xarelto 10/30/2012 No definite source, p/w L leg pain. Neg w/u for coagulopathy Rheumatoid factor positive Per [facility] [place] Rheum phone consult s/p reviewing records & x-rays pt dx'ed: OA with low-titer RF Snoring (12/06/13) With apnea Refer to sleep medicine when pt ready, 2013 Synovial cyst of popliteal space [Munoz], left knee ER 03/04/18 Urge and stress incontinence Surgical History Bursectomy L shoulder, 2004, Dr. Keyana Bentley History of partial knee replacement (08/07/19) Bilateral patellofemoral replacements: 08/07/2019 History of surgical removal of ganglion cyst right hand S/P excision of lipoma (~10/31/18) Tubal Ligation, 1995 [place] teeth extraction Family History Mother Rheumatoid arthritis Diabetes Essential hypertension Hyperlipidemia Mental disorder Bipolar disorder Father Substance abuse EtOH Diabetes Seizure disorder Sister , Overdose Substance abuse Mental disorder Bipolar disorder Sister Mental disorder Bipolar disorder Grandmother , Breast CA at age 44. Rheumatoid arthritis Personal history of malignant neoplasm Breast CA dx'ed 35 at 40 Maternal Aunt , MVA at age 58. 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 Sexually active: No Current gender identity: female What type of physical activity do you participate in: none Seatbelt use: always Drive intox or ride w/intox stock car driver: No Water heater temp set <120 deg: Yes Working smoke detector in home: Yes Fire extinguisher in home: Yes Carbon monox detector in home: Yes Do you feel safe at home: Yes Do you feel safe in your relationship?: Yes Additional Social history: Im not in one, its great Female Reproductive History Menstrual Menopause type: natural Date of menopause: 07/14/17 Exam Narrative Exam Narrative: Patient sleeping comfortably in emergency department without any pain medicine administered Easily arousable. No acute distress. Alert and oriented. Breathing comfortably on room air. Speaking complete sentences without difficulty. Right lower extremity without any significant edema, erythema, wounds or rashes. Incision well-healed over knee. No discrete areas of tenderness palpation. Somewhat diffuse moderate tenderness to palpation over the anteromedial anterolateral joint line and proximal anterior tibia. Patellar tracking normal. No knee effusion. Minimal warmth. No calf swelling or tenderness to palpation Demonstrates strong intact motor knee flexion extension and distally Sensation grossly intact light touch throughout Results Last Vital Signs Temp 98.1 F 11/14/19 08:06 Pulse 66 11/14/19 11:35 Resp 18 11/14/19 11:35 BP 124/80 11/14/19 11:35 Pulse Ox 98 11/14/19 11:35 Labs Result diagrams: 11/14/19 09:48 11/14/19 09:48 Labs: Laboratory Results - last 24 hr 11/14/19 11/14/19 09:48 09:48 WBC 5.08 RBC 4.68 Hgb 15.4 Hct 43.6 MCV 93.2 MCH 32.9 MCHC 35.3 RDW 12.5 Plt Count 275 MPV 9.5 Immature Gran % 0.2 Neutrophils % 49.4 Lymphocytes % 37.4 Monocytes % 9.6 Eosinophils % 2.4 Basophils % 1.0 Nucleated RBC % 0 Absolute Neutrophils 2.51 Absolute Lymphocytes 1.90 Absolute Monocytes 0.49 Absolute Eosinophils 0.12 Absolute Basophils 0.05 ESR 7 Sodium 137 Potassium 4.4 Chloride 104 Carbon Dioxide 26.7 Anion Gap 6.3 BUN 13 Creatinine 0.54 L Estimated GFR/1.73 m2 >= 60.00 Glucose 94 Calcium 8.9 C-Reactive Protein 0.09 Imaging Additional studies: Inflammatory markers WBC, CRP, ESR all reviewed and well within normal limits Imaging Studies: Right knee x-rays and tibia/fibula x-rays port images and failure reviewed negative for any fractures location. No subtle changes or loosening or hardware failure appreciated. No significant edema or knee effusion. No subcutaneous air.
== END 2019-11-14 11:45 | disposition home or self-care (01) ==
PROVIDERS: Emergency Provider Student in an Organized Health Care Education/Training Program; PCP Nurse Practitioner Adult Health
DX: M25.561 Pain in right knee (principal); R60.0 Localized edema; Z79.01 Long term (current) use of anticoagulants; Z86.711 Personal history of pulmonary embolism; Z96.651 Presence of right artificial knee joint
CPT/HCPCS: 36415; 73562; 80048; 85652; 99254; 99284; 73590; 85025; 86140; 93971

== ENCOUNTER 2019-12-16 15:23 | Emergency (ER) | payer MEDICAID, SELFPAY ==
[2019-12-16 16:00] VITALS: BP 140/87; PULSE 69; RESP 20; TEMP 36.6; O2SAT 96
--- NOTE | 2019-12-16 16:00 | DI.RAD_ITS ---
EXAM: XR WRIST LT COMPLETE CLINICAL HISTORY: pain s/p hitting on desk yesterday. TECHNIQUE: 2D digital imaging was performed. COMPARISON: No exams were available for comparison FINDINGS: BONES: No acute fracture is present. No bony destructive lesion is seen. JOINTS: The carpal bones are normally aligned. SOFT TISSUE: Normal. IMPRESSION: Unremarkable radiographs of the left wrist. DATA REPOSITORY: RADIATION DOSE DELIVERED:
--- NOTE | 2019-12-16 16:13 | W.ED.GENAD ---
Discharge Plan Disposition Patient Disposition: HOME Condition: Stable Discharge Details Clinical Impression: Contusion of left wrist Primary Care Provider: Michell Simmons ED Provider: Jax Garcia Home Meds and New Rx's Prescriptions: Continued albuterol sulfate [ProAir HFA] 90 mcg/actuation HFA aerosol inhaler 2 puff Inhalation Q4H PRN Qty: 1 RF: 2 fluticasone propionate [Flonase Allergy Relief] 50 mcg/actuation spray,suspension 2 spray FLORENTIN DAILY PRN (Reason: allergy symptoms) Qty: 9.9 RF: 4 Xarelto 20 mg tablet 20 mg PO DAILY Qty: 90 RF: 3 sertraline 100 mg tablet 200 mg PO DAILY Qty: 180 RF: 3 acetaminophen 500 mg tablet 1,000 mg PO Q8H PRN (Reason: pain) Qty: 90 RF: 3 celecoxib 100 mg capsule 100 mg PO BID Qty: 60 RF: 1 almotriptan malate 12.5 mg tablet See Rx Instructions .ROUTE .COMPLEX RF: 0 Discharge Instructions Instructions: Contusion in Adults (ED) Additional Instructions: if pain continues in a week see primary care provider or your orthopedist if you have severe worsening pain or feel more ill return to the emergency department Discharge Data Discharge Date/Time-TO BE ENTERED AT DEPARTURE: 12/16/19 17:30 Medical Decision Making <Jax Garcia MD - Last Filed: 12/16/19 17:16> 44 yo female comes in with left wrist pain for a day. States yesterday when she went to stand up she hit it against a desk and has been having increased pain since. No other falls, no fevers or redness. States due to prior knee surgery months ago uses her hands a lot to get up so feels it is stressing the joint. On exam no significant swelling, full rom of the wrist and fingers with no warmth or erythema, normal sensation and pulses, does have pain on radial side of the wrist. Suspect contusion but will xray to evaluate for fx. No snuffbox tenderness so doubt scaphoid fx. xray unremarkable will place in thumb spica and have her wear it until pain free and if pain continues in a week see pcp or ortho Differential Diagnosis Differential Diagnosis: contusion, fracture, sprain, strain, tendonitis Medical Records Medical records reviewed: Yes I reviewed the patient's medical records. <Evangelina Norris MD - Last Filed: 12/30/19 11:57> I did not see this patient, nor did I participate in the patient care treatment. Imaging Data Radiologic Study: Attestation: I personally reviewed and interpreted this imaging study as follows: Imaging: X-Ray Radiologist's impression: no acute findings on xray HPI <Jax Garcia MD - Last Filed: 12/16/19 17:16> General Mode of arrival: ambulatory. Date/Time Provider Initiated Documentation: 12/16/19 16:02. Limitations to Documentation: no limitations. Information obtained by: patient. History of Present Illness 44 year old F presents to the emergency department with the chief complaint of left wrist pain, described as moderate, Quality is described as aching, and is localized to the left and upper extremity. Patient reports no radiation. Patient started experiencing this day(s) (1) and it has been constant. Rest improves symptom(s), Movement worsens symptoms . Patient notes no other symptoms.. Related Data Home Medications Medication Instructions Recorded Confirmed albuterol sulfate 90 mcg/actuation 2 puff INHALATION Q4H PRN #1 12/28/18 12/16/19 aerosol inhaler inhaler fluticasone propionate 50 2 spray FLORENTIN DAILY PRN #9.9 ml 07/17/19 12/16/19 mcg/actuation nasal spray,suspension rivaroxaban 20 mg tablet 20 mg PO DAILY #90 tab 07/17/19 12/16/19 sertraline 100 mg tablet 200 mg PO DAILY #180 tab-cap 07/17/19 12/16/19 acetaminophen 1,000 mg PO Q8H PRN #90 tab 08/07/19 12/16/19 celecoxib 100 mg PO BID #60 cap 08/07/19 12/16/19 almotriptan malate See Rx Instructions .ROUTE .COMPLEX 12/16/19 12/16/19 Previous Rx's Medication Instructions Recorded albuterol sulfate 90 mcg/actuation 2 puff INHALATION Q4H PRN #1 12/28/18 aerosol inhaler inhaler fluticasone propionate 50 2 spray FLORENTIN DAILY PRN #9.9 ml 07/17/19 mcg/actuation nasal spray,suspension rivaroxaban 20 mg tablet 20 mg PO DAILY #90 tab 07/17/19 sertraline 100 mg tablet 200 mg PO DAILY #180 tab-cap 07/17/19 acetaminophen 1,000 mg PO Q8H PRN #90 tab 08/07/19 celecoxib 100 mg PO BID #60 cap 08/07/19 Allergies Allergy/AdvReac Type Severity Reaction Status Date / Time naproxen Allergy Severe anaphilaxis Verified 12/16/19 16:00 hyaluronic acid Allergy Mild Knee Verified 12/16/19 16:00 injection--worsened pain bupropion Allergy Unknown hives Verified 12/16/19 16:00 General Stated Complaint: Orthopedic MANISH: 4 Review of Systems <Jax Garcia MD - Last Filed: 12/16/19 17:16> All systems reviewed & are unremarkable except as noted in HPI and below Constitutional Constitutional: Denies chills and Denies fever(s) Cardiovascular Cardiovascular: Denies chest pain and Denies dyspnea Respiratory Respiratory: Denies dyspnea Gastrointestinal Gastrointestinal: Denies abdominal pain, Denies nausea and Denies vomiting PFSH <Jax Garcia MD - Last Filed: 12/16/19 17:16> Medical History (Updated 12/16/19 @ 17:15 by Jax Garcia MD) Allergic rhinitis (12/06/13) RX Flonase 11/2013 (new RX) Arthralgia of hand (12/06/13) x-rays OA Asthma Asthma (05/24/13) Mild intermittent Woodstove, colds are triggers PRN Albuterol Chronic migraine w/o aura w/o status migrainosus, not intractable (04/05/11) Current use of anticoagulant therapy (10/30/12) s/p multiple PEs Depressive disorder (04/05/11) L-T SSRI Family history of breast cancer (08/26/15) See Family History HLD (hyperlipidemia) Hyperlipidemia (09/01/15) 10/2016 labwork: 10-year ASCVD risk = 6.1% --> no statin indicated at this time, 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 Neg w/u for coagulopathy Rheumatoid factor positive Per [facility] [place] Rheum phone consult s/p reviewing records & x-rays pt dx'ed: OA with low-titer RF Snoring (12/06/13) With apnea Refer to sleep medicine when pt ready, 2013 Synovial cyst of popliteal space [Munoz], left knee ER 03/04/18 Urge and stress incontinence Surgical History Bursectomy L shoulder, 2004, Dr. Ridley [place] History of partial knee replacement (08/07/19) Bilateral patellofemoral replacements: 08/07/2019 History of surgical removal of ganglion cyst right hand S/P excision of lipoma (~10/31/18) Tubal Ligation, 1995 [place] teeth extraction Family History Mother Rheumatoid arthritis Diabetes Essential hypertension Hyperlipidemia Mental disorder Bipolar disorder Father Substance abuse EtOH Diabetes Seizure disorder Sister , Overdose Substance abuse Mental disorder Bipolar disorder Sister Mental disorder Bipolar disorder Grandmother , Breast CA at age 44. Rheumatoid arthritis Personal history of malignant neoplasm Breast CA dx'ed 36 at 40 Maternal Aunt , MVA at age 58. 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 Sexually active: No Current gender identity: female What type of physical activity do you participate in: none Seatbelt use: always Drive intox or ride 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: No Water heater temp set <120 deg: Yes Working smoke detector in home: Yes Fire extinguisher in home: Yes Carbon monox detector in home: Yes Do you feel safe at home: Yes Do you feel safe in your relationship?: Yes Additional Social history: Im not in one, its great Female Reproductive History Menstrual Menopause type: natural Date of menopause: 07/14/17 Exam <Jax Garcia MD - Last Filed: 12/16/19 17:16> Const General: no acute distress Orientation: alert [facility] Head: normal to inspection Ears: external ears normal General nose exam: external nose normal Mouth: moist mucous membranes Eyes General: appearance normal, both eyes and all related structures Neck Neck: normal visual inspection Resp Effort & Inspection: normal respiratory effort and able to speak in complete sentences Cardio Rate: regular rate Skin General skin exam: no rashes or lesions noted Neuro General: patient alert and patient oriented x3 Extrem General: normal to inspection, full ROM and capillary refill normal Psych Mental Status: mental status grossly normal Course <Jax Garcia MD - Last Filed: 12/16/19 17:16> Vital Signs Vital signs: Vital Signs Temperature 36.6 C 12/16/19 16:00 Pulse 69 12/16/19 16:00 Respiratory Rate 20 12/16/19 16:00 Blood Pressure 140/87 12/16/19 16:00 Pulse Oximetry 96 12/16/19 16:00 Temperature 36.6 C 12/16/19 16:00 Temperature Source Skin 12/16/19 16:00 Pulse 69 12/16/19 16:00 Respiratory Rate 20 12/16/19 16:00 Respiratory Effort Non-Labored 12/16/19 16:05 Blood Pressure 140/87 12/16/19 16:00 Blood Pressure Position Sitting 12/16/19 16:00 Pulse Oximetry 96 12/16/19 16:00 Oxygen Delivery Method Room Air 12/16/19 16:00 Oxygen Flow Rate 0 12/16/19 16:00 Pain Level 4 12/16/19 16:00
[2019-12-16] MEDS: Acetaminophen 500 MG TAB 1000 MG PO (16:37)
--- NOTE | 2019-12-16 16:59 | DI.VRAD_ITS ---
PROCEDURE INFORMATION: Exam: XR Left Wrist Exam date and time: 12/16/2019 4:35 PM Age: 44 years old Clinical indication: Pain; Wrist; Left TECHNIQUE: Imaging protocol: XR Left wrist. Views: 3 or more views. COMPARISON: No relevant prior studies available. FINDINGS: Bones/joints: Normal. Soft tissues: Normal. IMPRESSION: No acute findings. Dictated and Authenticated by: Jose Raul Fonseca MD. Ordering:MODE Camara MD
[2019-12-16 17:19] VITALS: BP 139/98; PULSE 58; RESP 18; TEMP 36.7; O2SAT 96
== END 2019-12-16 17:30 | disposition home or self-care (01) ==
PROVIDERS: Emergency Provider Emergency Medicine; PCP Nurse Practitioner Adult Health
DX: S60.212A Contusion of left wrist, initial encounter (principal); X50.3XXA Overexertion from repetitive movements, initial encounter
CPT/HCPCS: 29125; 99283; 73110; 99281; L3807

== ENCOUNTER 2020-02-28 09:23 | Emergency (ER) | payer MEDICAID, SELFPAY ==
[2020-02-28 09:27] VITALS: BP 123/84; PULSE 57; RESP 18; TEMP 36.4; O2SAT 96
--- NOTE | 2020-02-28 09:43 | W.ED.GENAD ---
Discharge Plan Disposition Patient Disposition: HOME Condition: Improving Discharge Details Clinical Impression: Acute frontal sinusitis Primary Care Provider: Michell Simmons ED Provider: Tu Solis Home Meds and New Rx's Prescriptions: New amoxicillin-pot clavulanate 875-125 mg tablet 1 tab PO BID 10 Days Qty: 20 RF: 0 Continued ofloxacin [Ocuflox] 0.3 % drops 2 drp ophthalmic (eye) .COMPLEX Qty: 10 RF: 0 albuterol sulfate [ProAir HFA] 90 mcg/actuation HFA aerosol inhaler 2 puff Inhalation Q4H PRN Qty: 1 RF: 2 fluticasone propionate [Flonase Allergy Relief] 50 mcg/actuation spray,suspension 2 spray FLORENTIN DAILY PRN (Reason: allergy symptoms) Qty: 9.9 RF: 4 Xarelto 20 mg tablet 20 mg PO DAILY Qty: 90 RF: 3 sertraline 100 mg tablet 200 mg PO DAILY Qty: 180 RF: 3 acetaminophen 500 mg tablet 1,000 mg PO Q8H PRN (Reason: pain) Qty: 90 RF: 3 celecoxib 100 mg capsule 100 mg PO BID Qty: 60 RF: 1 almotriptan malate 12.5 mg tablet See Rx Instructions .ROUTE .COMPLEX RF: 0 Medical Decision Making 44-year-old female presents from home with day 5 of headache that primarily has been frontal and in the maxillary sinuses. She a history of migraines and has also had sinus infections in the past. Anticoagulated for history of PE. She had no fall or injury. No recent illness. She arrives afebrile, well-appearing, with a nonfocal neurologic examination. She has evidence of sinus infection on exam. IV placed, patient given fluid bolus, parenteral medications. Observed over approximately 90 minutes with significant improvement, stating she felt a lot better. Discussed with her that I do not feel she requires CT imaging at this time. Will place her on Augmentin for sinusitis. She is stable, improved, appropriate for discharge to home at this time. HPI General Mode of arrival: ambulatory. Date/Time Provider Initiated Documentation: 02/28/20 09:24. Limitations to Documentation: no limitations. Information obtained by: patient. History of Present Illness 44 year old F presents to the emergency department with the chief complaint of Headache, frontal, described as moderate, severe and similar to prior episodes, Quality is described as dull and constant, and is localized to the head and face. Patient reports no radiation. Patient started experiencing this day(s) and it has been constant. No relieving factors improve symptom(s), No exacerbating factors reported . Patient notes headaches; denies loss of appetite and nausea/vomiting. Patient did receive the following treatments prior to arrival, other (Tylenol) Related Data Home Medications Medication Instructions Recorded Confirmed albuterol sulfate 90 mcg/actuation 2 puff INHALATION Q4H PRN #1 12/28/18 12/16/19 aerosol inhaler inhaler fluticasone propionate 50 2 spray FLORENTIN DAILY PRN #9.9 ml 07/17/19 12/16/19 mcg/actuation nasal spray,suspension rivaroxaban 20 mg tablet 20 mg PO DAILY #90 tab 07/17/19 12/16/19 sertraline 100 mg tablet 200 mg PO DAILY #180 tab-cap 07/17/19 12/16/19 acetaminophen 1,000 mg PO Q8H PRN #90 tab 08/07/19 12/16/19 celecoxib 100 mg PO BID #60 cap 08/07/19 12/16/19 almotriptan malate See Rx Instructions .ROUTE .COMPLEX 12/16/19 12/16/19 ofloxacin 0.3 % eye drops 2 drp OPHTHALMIC (EYE) .COMPLEX 02/11/20 02/11/20 #10 ml amoxicillin-pot clavulanate 1 tab PO BID 10 Days #20 tab 02/28/20 Previous Rx's Medication Instructions Recorded albuterol sulfate 90 mcg/actuation 2 puff INHALATION Q4H PRN #1 12/28/18 aerosol inhaler inhaler fluticasone propionate 50 2 spray FLORENTIN DAILY PRN #9.9 ml 07/17/19 mcg/actuation nasal spray,suspension rivaroxaban 20 mg tablet 20 mg PO DAILY #90 tab 07/17/19 sertraline 100 mg tablet 200 mg PO DAILY #180 tab-cap 07/17/19 acetaminophen 1,000 mg PO Q8H PRN #90 tab 08/07/19 celecoxib 100 mg PO BID #60 cap 08/07/19 ofloxacin 0.3 % eye drops 2 drp OPHTHALMIC (EYE) .COMPLEX 02/11/20 #10 ml amoxicillin-pot clavulanate 1 tab PO BID 10 Days #20 tab 02/28/20 Allergies Allergy/AdvReac Type Severity Reaction Status Date / Time naproxen Allergy Severe anaphilaxis Verified 02/28/20 09:30 hyaluronic acid Allergy Mild Knee Verified 02/28/20 09:30 injection--worsened pain bupropion Allergy Unknown hives Verified 02/28/20 09:30 General Stated Complaint: Headache MANISH: 3 Review of Systems Narrative: 6 systems reviewed and otherwise negative FOR[facility]LY [facility], [facility] Medical History (Updated 02/28/20 @ 11:02 by Tu Solis MD) Allergic rhinitis (12/06/13) RX Flonase 11/2013 (new RX) Arthralgia of hand (12/06/13) x-rays OA Asthma Asthma (05/24/13) Mild intermittent Woodstove, colds are triggers PRN Albuterol Chronic migraine w/o aura w/o status migrainosus, not intractable (04/05/11) Current use of anticoagulant therapy (10/30/12) s/p multiple PEs Depressive disorder (04/05/11) L-T SSRI Family history of breast cancer (08/26/15) See Family History HLD (hyperlipidemia) Hyperlipidemia (09/01/15) 10/2016 labwork: 10-year ASCVD risk = 6.1% --> no statin indicated at this time, 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 Neg w/u for coagulopathy Rheumatoid factor positive Per [facility] [place] Rheum phone consult s/p reviewing records & x-rays pt dx'ed: OA with low-titer RF Snoring (12/06/13) With apnea Refer to sleep medicine when pt ready, 2013 Synovial cyst of popliteal space [Munoz], left knee ER 03/04/18 Urge and stress incontinence Surgical History Bursectomy L shoulder, 2004, Dr. Ridley [place] History of partial knee replacement (08/07/19) Bilateral patellofemoral replacements: 08/07/2019 History of surgical removal of ganglion cyst right hand S/P excision of lipoma (~10/31/18) Tubal Ligation, 1996 [place] teeth extraction Family History Mother Rheumatoid arthritis Diabetes Essential hypertension Hyperlipidemia Mental disorder Bipolar disorder Father Substance abuse EtOH Diabetes Seizure disorder Sister , Overdose Substance abuse Mental disorder Bipolar disorder Sister Mental disorder Bipolar disorder Grandmother , Breast CA at age 44. Rheumatoid arthritis Personal history of malignant neoplasm Breast CA dx'ed 35 at 40 Maternal Aunt , MVA at age 58. 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 Pleasant, well groomed, interactive. HEAD: Normocephalic, atraumatic ENT: Mucous membranes moist, bifrontal sinus tenderness, tympanic membranes distended but clear bilaterally, oropharynx unremarkable, External ear exam unremarkable EYES: PERRL, EOMI NECK: Full ROM, no JANELL, no menigismus CHEST/RESP: Nontender, clear to auscultation bilateral, no wheeze/rhonchi/rales CARDIOVASCULAR: RRR, no murmur, rub alondra. 2+ Rad pulse bilateral ABDOMEN: Soft, nontender, no mass. +Bowel sounds EXT: Full ROM, no edema, no rash Neuro: Grossly normal neurologic exam, conversant, interactive. Psych: Speech fluent, thoughts congruent, affect normal Course Vital Signs Vital signs: Vital Signs Temperature 36.4 C L 02/28/20 09:27 Pulse 57 L 02/28/20 09:27 Respiratory Rate 18 02/28/20 09:27 Blood Pressure 123/84 02/28/20 09:27 Pulse Oximetry 96 02/28/20 09:27 Temperature 36.4 C L 02/28/20 09:27 Temperature Source Skin 02/28/20 09:27 Pulse 57 L 02/28/20 09:27 Respiratory Rate 18 02/28/20 09:27 Respiratory Effort Non-Labored 02/28/20 09:30 Blood Pressure 123/84 02/28/20 09:27 Blood Pressure Position Sitting 02/28/20 09:27 Pulse Oximetry 96 02/28/20 09:27 Oxygen Delivery Method Room Air 02/28/20 09:27 Oxygen Flow Rate 0 02/28/20 09:27 Pain Level 9 02/28/20 09:35
[2020-02-28] MEDS: Normal Saline 1,000 ML 1000 ML IV (09:56)
[2020-02-28 09:59] LABS: HGB 13.6 g/dL (11.2-15.7); MCH 32.5 pg (27.0-33.0); MCV 95.7 fL (80-95); MPV 9.6 fL (8.0-11.0); Platelet Count 267 10^3/uL (130-400); RBC 4.18 10^6/uL (3.93-5.22); RDW 12.5 % (11.7-14.6); RDW-SD 44.3 fL; WBC 6.17 10^3/uL (4.4-10.8)
[2020-02-28] MEDS: Ondansetron 4 MG/2 ML VIAL IVP (10:00)
[2020-02-28 10:04] LABS: Anion Gap 6.2 mmol/L (3-11); BUN 15 mg/dL (7-18); CO2 26.8 mmol/L (21.0-32.0); CREATININE 0.69 mg/dL (0.55-1.02); Calcium 8.3 mg/dL (8.5-10.1); Chloride 105 mmol/L (98-107); Glucose 127 mg/dL (74-106); Potassium 4.1 mmol/L (3.5-5.1); Sodium 138 mmol/L (136-145)
[2020-02-28] MEDS: diphenhydrAMINE 50 MG/ML VIAL 12.5 MG IVP (10:05)
[2020-02-28] MEDS: HYDROmorphone 2 MG/ML VIAL 0.5 MG IVP (10:10)
[2020-02-28] MEDS: Dexamethasone 4 MG/ML VIAL 8 MG IVP (10:15)
[2020-02-28 10:53] VITALS: BP 107/64; PULSE 51; RESP 15; O2SAT 98
[2020-02-28] MEDS: Amoxicillin 875/Clav. 125 TAB PO (11:18)
[2020-02-28 11:21] VITALS: BP 135/82; PULSE 52; RESP 14; TEMP 36.4; O2SAT 99
== END 2020-02-28 11:23 | disposition home or self-care (01) ==
PROVIDERS: Emergency Provider Emergency Medicine; PCP Nurse Practitioner Adult Health
DX: J01.81 Other acute recurrent sinusitis (principal)
CPT/HCPCS: 36415; 80048; 85027; 96361; 96374; 96375; 99284; 99283; J1100; J1200; J2405

== ENCOUNTER 2020-04-28 08:26 | Emergency (ER) | payer MEDICAID, SELFPAY ==
[2020-04-28 08:34] VITALS: BP 124/75; PULSE 62; RESP 16; TEMP 36.4; O2SAT 98
--- NOTE | 2020-04-28 08:52 | ED.GENADUL_ITS ---
Discharge Plan Disposition Patient Disposition: HOME Condition: Stable Discharge Details Clinical Impression: Sinusitis, acute Primary Care Provider: Michell Simmons ED Provider: Tu Solis Home Meds and New Rx's Prescriptions: New amoxicillin-pot clavulanate 875-125 mg tablet 1 tab PO BID 10 Days Qty: 20 RF: 0 Continued albuterol sulfate [ProAir HFA] 90 mcg/actuation HFA aerosol inhaler 2 puff Inhalation Q4H PRN Qty: 1 RF: 2 fluticasone propionate [Flonase Allergy Relief] 50 mcg/actuation spray,suspension 2 spray FLORENTIN DAILY PRN (Reason: allergy symptoms) Qty: 9.9 RF: 4 Xarelto 20 mg tablet 20 mg PO DAILY Qty: 90 RF: 3 sertraline 100 mg tablet 200 mg PO DAILY Qty: 180 RF: 3 acetaminophen 500 mg tablet 1,000 mg PO Q8H PRN (Reason: pain) Qty: 90 RF: 3 celecoxib 100 mg capsule 100 mg PO BID Qty: 60 RF: 1 almotriptan malate 12.5 mg tablet See Rx Instructions .ROUTE .COMPLEX RF: 0 Discharge Instructions Instructions: Sinusitis (ED) Additional Instructions: Please follow-up with regular doctor if not improving in 1 week's time. Continue your regular medications including Flonase. Take Augmentin as prescribed. I recommend an jllt-sip-[id number] probiotic or live culture yogurt once daily in between the doses of antibiotics. Return for any acute concerns. Stand Alone Forms: PENDING COVID-19 TESTING, Work Release Medical Decision Making 44-year-old female's former smoker presents with days of frontal and sinus pressure and discomfort that began after an antecedent 7 days of URI symptoms. She does have a history of PE, she is anticoagulated, she is not hypoxic and she has no complaint of shortness of breath or chest pain. She will describe some mild postnasal drip. She is well-appearing and her exam is consistent with acute frontal/maxillary sinusitis. 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 She is stable for discharge home at this time. HPI General Mode of arrival: ambulatory . Date/Time Provider Initiated Documentation: 04/28/20 08:27 . Limitations to Documentation: no limitations . Information obtained by: patient . History of Present Illness 44 year old F presents to the emergency department with the chief complaint of Sinus pain and pressure, described as moderate, Quality is described as dull and constant, and is localized to the head and face. Patient reports no radiation. Patient started experiencing this day(s) and it has been constant. No relieving factors improve symptom(s), No exacerbating factors reported . Patient notes cough and other (Yellow sputum and postnasal drip). Patient did receive the following treatments prior to arrival, none Related Data Home Medications Medication Instructions Recorded Confirmed albuterol sulfate 90 mcg/actuation 2 puff INHALATION Q4H PRN #1 12/28/18 04/28/20 aerosol inhaler inhaler fluticasone propionate 50 2 spray FLORENTIN DAILY PRN #9.9 ml 07/17/19 04/28/20 mcg/actuation nasal spray,suspension rivaroxaban 20 mg tablet 20 mg PO DAILY #90 tab 07/17/19 04/28/20 sertraline 100 mg tablet 200 mg PO DAILY #180 tab-cap 07/17/19 04/28/20 acetaminophen 1,000 mg PO Q8H PRN #90 tab 08/07/19 04/28/20 celecoxib 100 mg PO BID #60 cap 08/07/19 04/28/20 almotriptan malate See Rx Instructions .ROUTE .COMPLEX 12/16/19 04/28/20 amoxicillin-pot clavulanate 1 tab PO BID 10 Days #20 tab 04/28/20 Previous Rx's Medication Instructions Recorded albuterol sulfate 90 mcg/actuation 2 puff INHALATION Q4H PRN #1 12/28/18 aerosol inhaler inhaler fluticasone propionate 50 2 spray FLORENTIN DAILY PRN #9.9 ml 07/17/19 mcg/actuation nasal spray,suspension rivaroxaban 20 mg tablet 20 mg PO DAILY #90 tab 07/17/19 sertraline 100 mg tablet 200 mg PO DAILY #180 tab-cap 07/17/19 acetaminophen 1,000 mg PO Q8H PRN #90 tab 08/07/19 celecoxib 100 mg PO BID #60 cap 08/07/19 amoxicillin-pot clavulanate 1 tab PO BID 10 Days #20 tab 04/28/20 Allergies Allergy/AdvReac Type Severity Reaction Status Date / Time naproxen Allergy Severe anaphilaxis Verified 04/28/20 08:41 hyaluronic acid Allergy Mild Knee Verified 04/28/20 08:41 injection--worsened pain bupropion Allergy Unknown hives Verified 04/28/20 08:41 General Stated Complaint: RespSymp MANISH: 3 Review of Systems Narrative: 8 systems reviewed and otherwise negative. 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 No cough or shortness of breath. No chest pain. 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 Neg w/u for coagulopathy Rheumatoid factor positive Per [facility] [place] Rheum phone consult s/p reviewing records & x-rays pt dx'ed: OA with low-titer RF Snoring (12/06/13) With apnea Refer to sleep medicine when pt ready, 2013 Synovial cyst of popliteal space [Munoz], left knee ER 03/04/18 Urge and stress incontinence Surgical History Bursectomy L shoulder, 2004, Dr. Ridley [place] History of partial knee replacement (08/07/19) Bilateral patellofemoral replacements: 08/07/2019 History of surgical removal of ganglion cyst right hand S/P excision of lipoma (~10/31/18) Tubal Ligation, 1996 [place] teeth extraction Family History Mother Rheumatoid arthritis Diabetes Essential hypertension Hyperlipidemia Mental disorder Bipolar disorder Father Substance abuse EtOH Diabetes Seizure disorder Sister , Overdose Substance abuse Mental disorder Bipolar disorder Sister Mental disorder Bipolar disorder Grandmother , Breast CA at age 44. Rheumatoid arthritis Personal history of malignant neoplasm Breast CA dx'ed 36 at 40 Maternal Aunt , MVA at age 58. 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 Pleasant, well groomed, interactive. HEAD: Normocephalic, atraumatic ENT: Mucous membranes moist, oropharynx unremarkable, bilateral frontal and maxillary sinus tenderness to percussion, tympanic membrane slightly distended bilaterally but pearlescent, external ear exam unremarkable EYES: PERRL, EOMI NECK: Full ROM, no JANELL, no menigismus CHEST/RESP: Nontender, clear to auscultation bilateral, no wheeze/rhonchi/rales CARDIOVASCULAR: RRR, no murmur, rub alondra. 2+ Rad pulse bilateral ABDOMEN: Soft, nontender, no mass. +Bowel sounds EXT: Full ROM, no edema, no rash Neuro: Grossly normal neurologic exam, conversant, interactive. Psych: Speech fluent, thoughts congruent, affect normal Course Vital Signs Vital signs: Vital Signs Temperature 36.4 C L 04/28/20 08:34 Pulse 62 04/28/20 08:34 Respiratory Rate 16 04/28/20 08:34 Blood Pressure 124/75 04/28/20 08:34 Pulse Oximetry 98 04/28/20 08:34 Temperature 36.4 C L 04/28/20 08:34 Temperature Source Temporal Artery Scan 04/28/20 08:34 Pulse 62 04/28/20 08:34 Respiratory Rate 16 04/28/20 08:34 Respiratory Effort Non-Labored 04/28/20 08:43 Respiratory Depth Normal 04/28/20 08:43 Blood Pressure 124/75 04/28/20 08:34 Blood Pressure Position Sitting 04/28/20 08:34 Pulse Oximetry 98 04/28/20 08:34 Oxygen Delivery Method Room Air 04/28/20 08:34 Oxygen Flow Rate 0 04/28/20 08:34 Pain Level 6 04/28/20 08:34
[2020-04-29 13:30] LABS: COVID-19 RT-PCR UVMMC Result Negative (Negative)
--- NOTE | 2020-04-29 17:13 | NUR.NOTE ---
04/29/20 @ 4162, left message to return call to ED for test results.
--- NOTE | 2020-04-29 17:14 | NUR.NOTE ---
1715 patient returned call. after verifying identity, relayed negative covid results to her.
== END 2020-04-28 09:02 | disposition home or self-care (01) ==
LOC: ER 09:00
PROVIDERS: Emergency Provider Emergency Medicine; PCP Nurse Practitioner Adult Health
DX: J01.90 Acute sinusitis, unspecified (principal); Z20.822 Contact with and (suspected) exposure to COVID-19
CPT/HCPCS: 99283; U0003

== ENCOUNTER 2020-07-10 14:48 | Outpatient (REF) | payer MEDICAID, SELFPAY ==
--- NOTE | 2020-07-10 14:30 | PAPFT_PTH ---
PATIENT: Anna Mccray LOC: [facility] U#:[id number] AGE/SX: 44/F ROOM: RE07/10/[address]: Michell Simmons APRN : 1975 BED: DIS: 07/10/2020 SPEC #: [id number] RECD: 07/10/20 18:12 STATUS: MACK REDoris #: [id number] NOY: 07/10/20 14:[address]: Michell Simmons [facility]PT[facility] Cytology RECD BY: Sara Troy Tissues: 1 - CX/ENDOCX FOR PAP SMEARS Procedures: PAP THIN PREP/UVM Screening HPV DNA PROBE Comments: [id number]
== END 2020-07-10 14:49 | disposition home or self-care (01) ==
LOC: LBN 14:48
PROVIDERS: PCP Nurse Practitioner Adult Health; Visit Provider Nurse Practitioner Adult Health
DX: Z12.4 Encounter for screening for malignant neoplasm of cervix (principal); Z11.51 Encounter for screening for human papillomavirus (HPV)
CPT/HCPCS: 88142; 87624

== ENCOUNTER 2020-12-22 10:55 | Outpatient (REF) | payer MEDICAID, SELFPAY ==
[2020-12-23 13:55] LABS: COVID-19 RT-PCR UVMMC Result Negative (Negative)
== END 2020-12-22 10:56 | disposition home or self-care (01) ==
LOC: LBN 10:55
PROVIDERS: PCP Nurse Practitioner Adult Health; Visit Provider Nurse Practitioner Family
DX: Z20.822 Contact with and (suspected) exposure to COVID-19 (principal)
CPT/HCPCS: U0003

== ENCOUNTER 2021-08-02 09:03 | Emergency (ER) | payer MEDICAID, SELFPAY ==
[2021-08-02 09:11] VITALS: BP 123/80; PULSE 79; RESP 14; TEMP 36.3; O2SAT 95
--- NOTE | 2021-08-02 09:33 | W.ED.GENAD ---
Discharge Plan Disposition Patient Disposition: HOME Condition: Stable Discharge Details Clinical Impression: Sinusitis Primary Care Provider: Michell Simmons ED Provider: Ezra Barrera Home Meds and New Rx's Prescriptions: New amoxicillin-pot clavulanate 875-125 mg tablet 1 tab PO BID 7 Days Qty: 14 0RF Continued celecoxib 100 mg capsule 100 mg PO .daily-bid Qty: 90 1RF Rx Instructions: or as directed; polyarthralgia; do not take with other NSAIDs sertraline 100 mg tablet 200 mg PO DAILY Qty: 180 3RF Xarelto 20 mg tablet 20 mg PO DAILY Qty: 90 3RF Rx Instructions: dx: PE albuterol sulfate [ProAir HFA] 90 mcg/actuation HFA aerosol inhaler 2 puff Inhalation Q4H PRN Qty: 1 2RF Rx Instructions: cough, wheeze, SOB fluticasone propionate [Flonase Allergy Relief] 50 mcg/actuation spray,suspension 2 spray FLORENTIN DAILY PRN (Reason: allergy symptoms) Qty: 9.9 4RF acetaminophen 500 mg tablet 1,000 mg PO Q8H PRN (Reason: pain) Qty: 90 3RF almotriptan malate 12.5 mg tablet See Rx Instructions .ROUTE .COMPLEX Label Comments: TAKE 1 TABLET BY MOUTH AT ONSET OF HEADACHE MAY REPEAT ONCE AFTER 2 HOURS IF NEEDED Rx Instructions: TAKE 1 TABLET BY MOUTH AT ONSET OF HEADACHE MAY REPEAT ONCE AFTER 2 HOURS IF NEEDED Discharge Instructions Instructions: Sinusitis (ED) Additional Instructions: You may continue to take [id number] sinus medication or Tylenol as needed for discomfort. Please take antibiotics as prescribed and until fully completed. At this time you have been tested for COVID-19 and those results are typically available in 48 hours and we will contact you with the results when available. It is recommended that you quarantine until those results have returned. If you have any new or significant worsening of symptoms or further concerns feel free to follow-up in the emergency department for reassessment or with your primary care provider. Stand Alone Forms: Work Release Referrals: Michell Simmons, REGISTERED OCCUPATIONAL THERAPIST [Primary Care Provider] - (If not improving in the next week please follow-up with your primary care provider for reassessment) Medical Decision Making Patient presenting to the emergency department for chief complaint of headache and sinus pain. Patient reports that for the last 3 weeks she has had allergy symptoms and that he doing [place] pot and Flonase. Over the last 3 days she has had significant worsening of symptoms, referred dental pain, increased headaches and congestion. Patient denies any fever chills or systemic symptoms. Physical exam shows significant tenderness to the ethmoid and maxillary sinuses bilateral, exam is otherwise unremarkable. Reviewed patient's previous records and she does have significant history of sinusitis.. Given the duration of symptoms with acute worsening I do feel that patient would benefit from antibiotic therapy and will place patient on Augmentin. 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 Patient encouraged to rest over the next couple days and use [id number] medication for symptomatic control. After discussion of diagnosis and plan of care patient has no further needs, questions, or concerns and states clear understanding to return to the emergency department for any worsening symptoms. This documentation was generated using [employer] system, please disregard any oddities of phrase or misspellings. Medical Records Medical records reviewed: Yes I reviewed the patient's medical records. HPI General Mode of arrival: ambulatory. Date/Time Provider Initiated Documentation: 08/02/21 09:16. Limitations to Documentation: no limitations. Information obtained by: patient and RN notes reviewed. History of Present Illness 45 year old F presents to the emergency department with the chief complaint of Sinus congestion, headache, dental pain, described as moderate, with intensity rated at 8. Quality is described as aching, and is localized to the head. Patient reports no radiation. Patient started experiencing this day(s) and it has been constant. No relieving factors improve symptom(s), No exacerbating factors reported . Patient notes headaches and malaise; denies chest pain, cough, fever/chills and nausea/vomiting. Patient did receive the following treatments prior to arrival, NSAID and cold therapy Related Data Home Medications Medication Instructions Recorded Confirmed albuterol sulfate 90 mcg/actuation 2 puff inhalation Q4H PRN ##1 12/28/18 08/02/21 aerosol inhaler (ProAir HFA) fluticasone propionate 50 2 spray intranasal DAILY PRN 07/17/19 08/02/21 mcg/actuation nasal allergy symptoms #9.9 mL spray,suspension (Flonase Allergy Relief) acetaminophen 500 mg tablet 1,000 mg PO Q8H PRN pain #90 tabs 08/07/19 08/02/21 almotriptan malate 12.5 mg tablet See Rx Instructions .Route .COMPLEX 12/16/19 08/02/21 celecoxib 100 mg capsule 100 mg PO .daily-bid #90 caps 07/10/20 08/02/21 rivaroxaban 20 mg tablet (Xarelto) 20 mg PO DAILY #90 tabs 07/10/20 08/02/21 sertraline 100 mg tablet 200 mg PO DAILY #180 tab-caps 07/10/20 08/02/21 amoxicillin 875 mg-potassium 1 tab PO BID 7 days #14 tabs 08/02/21 clavulanate 125 mg tablet Previous Rx's Medication Instructions Recorded albuterol sulfate 90 mcg/actuation 2 puff inhalation Q4H PRN ##1 12/28/18 aerosol inhaler (ProAir HFA) fluticasone propionate 50 2 spray intranasal DAILY PRN 07/17/19 mcg/actuation nasal allergy symptoms #9.9 mL spray,suspension (Flonase Allergy Relief) acetaminophen 500 mg tablet 1,000 mg PO Q8H PRN pain #90 tabs 08/07/19 celecoxib 100 mg capsule 100 mg PO .daily-bid #90 caps 07/10/20 rivaroxaban 20 mg tablet (Xarelto) 20 mg PO DAILY #90 tabs 07/10/20 sertraline 100 mg tablet 200 mg PO DAILY #180 tab-caps 07/10/20 amoxicillin 875 mg-potassium 1 tab PO BID 7 days #14 tabs 08/02/21 clavulanate 125 mg tablet Allergies Allergy/AdvReac Type Severity Reaction Status Date / Time naproxen Allergy Severe anaphilaxis Verified 08/02/21 09:13 hyaluronic acid Allergy Mild Knee Verified 08/02/21 09:13 injection--worsened pain bupropion Allergy Unknown hives Verified 08/02/21 09:13 General Stated Complaint: Headache MANISH: 4 Review of Systems Constitutional Constitutional: Denies chills, Denies fatigue, Denies fever(s), Reports headache(s) and Reports malaise Eyes Eyes: Denies change in vision ENT Ears, Nose, Mouth, and Throat: Reports as per HPI, Denies ear discharge, Reports otalgia, Reports facial pain, Reports headache(s), Reports nasal congestion, Denies neck pain, Reports sinus pain, Reports sinus pressure, Denies sore throat and Denies throat swelling Cardiovascular Cardiovascular: Denies chest pain and Denies dyspnea Respiratory Respiratory: Denies cough and Denies dyspnea Gastrointestinal Gastrointestinal: Denies diarrhea, Denies nausea and Denies vomiting Musculoskeletal Musculoskeletal: Denies myalgias and Denies neck pain Integumentary/Breasts Skin/Breast: Denies rash Neurologic Neurologic: Reports headache(s) Endocrine Endocrine: Denies fatigue Allergic/Immunologic Allergic/Immunologic: Denies throat swelling PFSH All Active Problems Sinusitis (Acute) Polyarthralgia (Acute) L-T Celebrex History of partial knee replacement (Acute 08/07/19) Bilateral patellofemoral replacements: 08/07/2019 Allergy to hyaluronic acid (Acute) Arthritis of left knee (Acute) Synvisc injection: 02/22/2019; 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 Neg w/u for coagulopathy Hyperlipidemia (Chronic 09/01/15) 10/2016 labwork: 10-year ASCVD risk = 6.1% --> no statin indicated at this time, LSMs recommended Family history of breast cancer (Chronic 08/26/15) See Family History Depressive disorder (Chronic 04/05/11) L-T SSRI Current use of anticoagulant therapy (Chronic 10/30/12) s/p multiple PEs Chronic migraine w/o aura w/o status migrainosus, not intractable (Chronic 04/05/11) Asthma (Chronic 05/24/13) Mild intermittent Woodstove, colds are triggers PRN Albuterol Allergic rhinitis (Chronic 12/06/13) RX Flonase 11/2013 (new RX) Medical History Asthma HLD (hyperlipidemia) Low grade squamous intraepithelial lesion (LGSIL) on cervical Pap smear (09/15/15) Repeat 2017: Normal cells/neg HPV, next 2019 Migraines Urge and stress incontinence Oxybutynin not helpful 08/2019 Surgical History Bursectomy L shoulder, 2004, Dr. Keyana [place] History of surgical removal of ganglion cyst right hand S/P excision of lipoma (~10/31/18) Tubal Ligation, 1995 [place] teeth extraction Family History Mother Rheumatoid arthritis Diabetes Essential hypertension Hyperlipidemia Mental disorder Bipolar disorder Father Substance abuse EtOH Diabetes Seizure disorder Sister , Overdose Substance abuse Mental disorder Bipolar disorder Sister Mental disorder Bipolar disorder Grandmother , Breast CA at age 44. Rheumatoid arthritis Personal history of malignant neoplasm Breast CA dx'ed 35 at 40 Maternal Aunt , MVA at age 58. 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 Sexually active: No Current gender identity: female What is your relationship status?: Panel score (0-1 are the most socially isolated patients): 0 What type of physical activity do you participate in: walking Frequency: 1-2 times per week Seatbelt use: always Drive intox or ride w/intox hazmat cdl a driver: No Water heater temp set <120 deg: Yes Working smoke detector in home: Yes Fire extinguisher in home: Yes Carbon monox detector in home: Yes Do you feel safe at home: Yes Do you feel safe in your relationship?: Yes Female Reproductive History Menstrual Menopause type: natural Date of menopause: 07/14/17 Exam Const General: cooperative, comfortable and no acute distress Orientation: alert and awake [facility] Head: normal to inspection, normocephalic and atraumatic Ears: hearing grossly normal bilaterally and TM's normal bilaterally General nose exam: external nose normal Face and sinus: no erythema and sinus tenderness ethmoid and maxillary Mouth: oral mucosae normal, no drooling, no muffled voice and no trismus Throat: posterior oropharynx normal Neck Neck: normal visual inspection, full ROM, no lymphadenopathy, no meningeal signs, trachea midline and supple Resp Effort & Inspection: normal respiratory effort and able to speak in complete sentences Auscultation: clear to auscultation bilaterally Cardio Rate: regular rate Rhythm: regular rhythm Heart Sounds: S1 normal, S2 normal, normal S1 and S2, no click, no gallops, no murmurs and no rubs Skin General skin exam: no rashes or lesions noted and dry skin (warm) Neuro General: patient alert, patient awake, patient oriented x3, gait normal and moves all extremities Cognition: normal cognition Speech: speech normal Course Vital Signs Vital signs: Vital Signs Temperature 36.3 C L 08/02/21 09:11 Pulse 79 08/02/21 09:11 Respiratory Rate 14 08/02/21 09:11 Blood Pressure 123/80 08/02/21 09:11 Pulse Oximetry 95 08/02/21 09:11 Temperature 36.3 C L 08/02/21 09:11 Temperature Source Temporal Artery Scan 08/02/21 09:11 Pulse 79 08/02/21 09:11 Respiratory Rate 14 08/02/21 09:11 Respiratory Effort Non-Labored 08/02/21 09:15 Blood Pressure 123/80 08/02/21 09:11 Blood Pressure Position Sitting 08/02/21 09:11 Pulse Oximetry 95 08/02/21 09:11 Oxygen Delivery Method Room Air 08/02/21 09:11 Oxygen Flow Rate 0 08/02/21 09:11 Pain Level 7 08/02/21 09:15
[2021-08-03 16:05] LABS: COVID-19 RT-PCR UVMMC Result Negative (Negative)
== END 2021-08-02 09:39 | disposition home or self-care (01) ==
PROVIDERS: Emergency Provider Nurse Practitioner Family; PCP Nurse Practitioner Adult Health
DX: J01.90 Acute sinusitis, unspecified (principal); Z87.891 Personal history of nicotine dependence; Z20.822 Contact with and (suspected) exposure to COVID-19
CPT/HCPCS: 99283; U0003

== ENCOUNTER 2021-08-24 19:10 | Outpatient (REF) | payer MEDICAID, SELFPAY | END 2021-08-24 19:11 | disposition home or self-care (01) | LOC: LBN 19:10 | PROVIDERS: PCP Nurse Practitioner Adult Health; Visit Provider Physician Assistant | DX: J02.9 Acute pharyngitis, unspecified (principal) | CPT/HCPCS: 87070 ==

== ENCOUNTER → 2021-09-13 11:33 | Outpatient (CLI) | payer MEDICAID, SELFPAY ==
--- NOTE | 2021-09-13 11:30 | DI.RAD_ITS ---
Exam(s) XR HAND RT COMPLETE EXAM: XR HAND RT COMPLETE CLINICAL HISTORY: Pain-M25.50, Bilat Lumps-R22.32, R22.31 TECHNIQUE: COMPARISON: CR ARTHITIS SERIES-ASAEL HAND WRIST from 10/18/2011 FINDINGS: Three views were obtained. There is mild narrowing of the cartilaginous joint spaces of the IP joint s, particularly the DIP joints. Mild marginal osteophytes are noted at multiple sites involving the IP joints. Findings as described are consistent with mild degenerative arthritis. IMPRESSION: RADIATION DOSE DELIVERED: Total DLP
--- NOTE | 2021-09-13 11:30 | DI.RAD_ITS ---
Exam(s) XR HAND LT COMPLETE EXAM: XR HAND LT COMPLETE CLINICAL HISTORY: Pain-M25.50, Bilat Lump-R22.32,R22.31, Joint Pain-M25.549, ABNL Serum-R79.8 TECHNIQUE: COMPARISON: CR XR HAND RT COMPLETE from 09/13/2021 FINDINGS: Three views were obtained. There is mild narrowing of the cartilaginous joint spaces of IP joints. Mild marginal osteophytes are noted at multiple sites involving IP joints. No other significant bony or soft tissue abnormality seen. Findings as described are consistent with mild degenerative arthritis. IMPRESSION: RADIATION DOSE DELIVERED: Total DLP
== END ==
PROVIDERS: PCP Nurse Practitioner Adult Health; Visit Provider Nurse Practitioner Adult Health
DX: R22.31 Localized swelling, mass and lump, right upper limb; R22.32 Localized swelling, mass and lump, left upper limb; R76.8 Other specified abnormal immunological findings in serum; M19.041 Primary osteoarthritis, right hand; M19.042 Primary osteoarthritis, left hand
CPT/HCPCS: 73130

== ENCOUNTER 2021-09-16 02:49 | Outpatient (CLI) | payer MEDICAID, SELFPAY ==
[2021-09-16 12:12] LABS: Abs Immature Grans 0.02 10^3/uL (0.0-0.06); Absolute Basophil Count 0.06 10^3/uL (0.0-0.2); Absolute Eosinophil Count 0.11 10^3/uL (0.0-0.7); Absolute Lymphocyte Count 1.95 10^3/uL (1.2-3.4); Absolute Monocyte Count 0.52 10^3/uL (0.1-0.8); Basophils % 1.1; Eosinophils % 2.1; HCT 41.8 % (36.0-46.0); HGB 14.7 g/dL (11.2-15.7); Immature Grans % 0.4; Lymphocytes % 36.4; MCH 32.6 pg (27.0-33.0); MCHC 35.2 % (32.0-36.0); MCV 93 fL (80-95); MPV 9.6 fL (8.0-11.0); Monocytes % 9.7; Neutrophils % 50.3; Platelet Count 264 10^3/uL (130-400); RBC 4.51 10^6/uL (3.93-5.22); RDW 12.7 % (11.7-14.6); RDW-SD 43.3 fL; WBC 5.36 10^3/uL (4.4-10.8)
[2021-09-16 12:14] LABS: ESR 3 mm/hr (0-20)
[2021-09-16 13:00] LABS: ALT 29 U/L (14-59); AST 19 U/L (15-37); Albumin 4.1 g/dL (3.4-5.0); Alkaline Phosphatase 67 U/L (46-116); BUN 20 mg/dL (7-18); Bilirubin, Total 0.8 mg/dL (0.2-1.0); C-Reactive Protein 0.06 mg/dL (0.0-0.3); CREATININE 0.7 mg/dL (0.55-1.02); Calcium 8.8 mg/dL (8.5-10.1); Chloride 103 mmol/L (98-107); Glucose 105 mg/dL (74-106); Potassium 4.2 mmol/L (3.5-5.1); Sodium 137 mmol/L (136-145); TSH (W/Ref FT4) 1.41 uIU/mL (0.36-3.74); Total Protein 7.1 g/dL (6.4-8.2)
[2021-09-16 13:49] LABS: Vitamin B12 755 pg/mL (193-986)
[2021-09-16 21:34] LABS: Rheumatoid Factor <8.6 IU/mL (<12.0)
[2021-09-17 08:56] LABS: Cyclic Citrullinated Peptide <2.5 U/mL (<5.0)
[2021-09-17 11:28] LABS: Lyme Ab w Rflx to Lyme Confirm Negative (Negative)
== END 2021-09-16 02:50 | disposition home or self-care (01) ==
LOC: LBO 02:51
PROVIDERS: PCP Nurse Practitioner Adult Health; Visit Provider Nurse Practitioner Adult Health
DX: M25.59 Pain in other specified joint (principal); R76.8 Other specified abnormal immunological findings in serum
CPT/HCPCS: 36415; 80053; 85652; 86200; 82607; 84443; 85025; 86140; 86431; 86618

== ENCOUNTER → 2021-10-07 00:59 | Outpatient (CLI) | payer MEDICAID, SELFPAY ==
--- NOTE | 2021-10-07 14:33 | DI.CT_ITS ---
Exam(s) CT SINUS WO EXAM: CT SINUS WO CLINICAL HISTORY: Recurrent sinusitis,j32.9 TECHNIQUE: COMPARISON: No exams were available for comparison FINDINGS: CT examination of paranasal sinuses was performed according to the usual protocol without contrast ad ministration. The orbital structures appear intact. Paranasal sinuses are clear as are the mastoid air cells. Ostiomeatal complexes of maxillary antra a ppear intact bilaterally. IMPRESSION: Negative sinus CT. RADIATION DOSE DELIVERED: 117.19mGy.cm Total DLP !Error CTDIvol DATA REPOSITORY: All CT scans at this facility are submitted to the National Radiology Data Registry (NRDR) Dose Index Registry (DIR) with the [employer] (ACR). RADIATION OPTIMIZATION: All CT scans at this facility use at least one of these dose optimization te chniques: automated exposure control; mA and/or kV adjustment per patient size (includes targeted exa ms where dose is matched to clinical indication); or iterative reconstruction.
== END ==
PROVIDERS: PCP Nurse Practitioner Adult Health; Visit Provider Registered Nurse Maternal Newborn
DX: J32.8 Other chronic sinusitis (principal)
CPT/HCPCS: 70486

== ENCOUNTER → 2021-10-07 00:59 | Outpatient (CLI) | payer MEDICAID, SELFPAY ==
--- NOTE | 2021-10-07 07:45 | DI.RAD_ITS ---
Exam(s) XR FOOT RT COMPLETE EXAM: XR FOOT RT COMPLETE CLINICAL HISTORY: painful lesion on dorsum of right foot,mass rt foot, r22.41 TECHNIQUE: COMPARISON: No exams were available for comparison FINDINGS: Three views were obtained. There are a hypertrophic marginal osteophytes of the joints of the midfoo t, particularly on the dorsum of the foot, please correlate clinically. Note is also made of promine nt contour of the medial aspect of navicular with possible small accessory ossicle, again clinical co rrelation is requested regarding the location of the stated questionable bony mass. No other significant findings. Alignment appears within normal limits. IMPRESSION: RADIATION DOSE DELIVERED: Total DLP
== END ==
PROVIDERS: PCP Nurse Practitioner Adult Health; Visit Provider Surgery
DX: R22.41 Localized swelling, mass and lump, right lower limb (principal); M79.671 Pain in right foot; M25.774 Osteophyte, right foot
CPT/HCPCS: 73630

== ENCOUNTER 2021-11-12 06:10 | Day surgery (SDC) | payer MEDICAID, SELFPAY ==
--- NOTE | 2021-11-11 22:07 | W.PM.HP.N ---
Assessment and Plan Assessment and plan (1) Multiple lipomas: Status: Acute (2) group home (current) use of non-steroidal anti-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 (nsaid): Status: Chronic (3) Asthma: (4) Rheumatoid factor positive: (5) Pulmonary embolism: Status: Chronic (6) Family history of breast cancer: Status: Chronic (7) Current use of anticoagulant therapy: Status: Chronic History of Present Illness Narrative: from clinic consult 10/04: ?She is complaining of discomfort in her left forearm on the volar aspect.? Here, she feels a soft tissue mass causes discomfort when she lays on her arm especially with positional changes.? She describes a similar lesion and sensation in the left lower portion of her back (an area of previous lipoma excision).? Similarly, she complains of a new bump in the right lower quadrant abdominal wall skin, as well as 1 in the left axilla. pt is here today for lipoma removal. The sites are marked in preOP. Informed consent is obtained explaining risks and benefits of the procedures including but not limited to: Bleeding, infection, pneumonia, blood clots, scarring, recurrence, poor cosmesis, complications from anesthesia. , Chronic numbness or chronic pain., And other on for told complications. The patient notes the lipomas are painful and that is why we are removing them today. [facility] on the patient understands what she can expect during the procedure, post procedurally, recovery time and wound care. Allergies are noted. She has no reactions to suture material that she is aware of She is off her blood thinners. These will be restarted in 72 hours. She has a history of PEs. She is not diabetic. She is not on steroids Review of Systems All systems reviewed & are unremarkable except as noted in HPI and below PFSH All Active Problems Elevated BUN (Acute) Osteoarthritis of feet, bilateral (Acute) Osteoarthritis involving multiple joints on both sides of body (Chronic ~09/2021) Multiple lipomas (Acute) Recurrent sinusitis (Acute) Polyarthralgia (Acute) L-T Celebrex History of partial knee replacement (Acute 08/07/19) Bilateral patellofemoral replacements: 08/07/2019 Allergy to hyaluronic acid (Acute) Arthritis of left knee (Acute) Synvisc injection: 02/22/2019; 05/07/2018 group home (current) use of non-steroidal anti-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 (nsaid) (Chronic) Celebrex; Polyarthralgia Synovial cyst of popliteal space [Munoz], left knee (Chronic) ER 03/04/18 Snoring (Chronic 12/06/13) With apnea Refer to sleep medicine when pt ready, 2013 Pulmonary embolism (Chronic 07/13/06) Switched to Xarelto 10/30/2012 No definite source, p/w L leg pain. Neg w/u for coagulopathy Hyperlipidemia (Chronic 09/01/15) 10/2016 labwork: 10-year ASCVD risk = 6.1% --> no statin indicated at this time, LSMs recommended Family history of breast cancer (Chronic 08/26/15) See Family History Depressive disorder (Chronic 04/05/11) L-T SSRI Current use of anticoagulant therapy (Chronic 10/30/12) s/p multiple PEs Chronic migraine w/o aura w/o status migrainosus, not intractable (Chronic 04/05/11) Asthma (Chronic 05/24/13) Mild intermittent [place], colds are triggers PRN Albuterol Allergic rhinitis (Chronic 12/06/13) RX Flonase 11/2013 (new RX) Medical History Asthma HLD (hyperlipidemia) Low grade squamous intraepithelial lesion (LGSIL) on cervical Pap smear (09/15/15) Repeat 2017: Normal cells/neg HPV, next 2019 Migraines Rheumatoid factor positive Per [facility] Rheum phone consult s/p reviewing records & x-rays pt dx'ed: OA with low-titer RF Urge and stress incontinence Oxybutynin not helpful 08/2019 Surgical History Bursectomy L shoulder, 2005, Dr. Keyana Bentley History of surgical removal of ganglion cyst right hand S/P excision of lipoma (~10/31/18) Tubal Ligation, 1995 [place] teeth extraction Family History Mother Rheumatoid arthritis Diabetes Essential hypertension Hyperlipidemia Mental disorder Bipolar disorder Father Substance abuse EtOH Diabetes Seizure disorder Sister , Overdose Substance abuse Mental disorder Bipolar disorder Sister Mental disorder Bipolar disorder Grandmother , Breast CA at age 44. Rheumatoid arthritis Personal history of malignant neoplasm Breast CA dx'ed 35 at 40 Maternal Aunt , MVA at age 58. 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 Sexually active: No Current gender identity: female What is your relationship status?: Panel score (0-1 are the most socially isolated patients): 0 What type of physical activity do you participate in: walking Frequency: 1-2 times per week Seatbelt use: always Drive intox or ride w/intox test car driver: No Water heater temp set <120 deg: Yes Working smoke detector in home: Yes Fire extinguisher in home: Yes Carbon monox detector in home: Yes Do you feel safe at home: Yes Additional Social history: Live with parents/son Female Reproductive History Menstrual Menopause type: natural Date of menopause: 07/14/17 Meds Allergies and Home Medications Allergies Allergy/AdvReac Type Severity Reaction Status Date / Time naproxen Allergy Severe anaphilaxis Verified 11/11/21 14:43 hyaluronic acid Allergy Mild Knee Verified 11/11/21 14:43 injection--worsened pain bupropion Allergy Unknown hives Verified 11/11/21 14:43 Home Medications Medication Instructions Recorded Confirmed Type albuterol sulfate 90 mcg/actuation 2 puff inhalation Q4H PRN ##1 12/28/18 11/11/21 Rx aerosol inhaler (ProAir HFA) fluticasone propionate 50 2 spray intranasal DAILY PRN 07/17/19 11/11/21 Rx mcg/actuation nasal allergy symptoms #9.9 mL spray,suspension (Flonase Allergy Relief) rivaroxaban 20 mg tablet (Xarelto) 20 mg PO DAILY #90 tabs 07/10/20 11/11/21 Rx acetaminophen 500 mg tablet 2,000 mg PO DAILY 11/11/21 11/11/21 History celecoxib 100 mg capsule 100 mg PO DAILY 11/11/21 11/11/21 History rizatriptan 5 mg tablet See Rx Instructions PO .COMPLEX PRN 11/11/21 11/11/21 History Exam Narrative Exam Narrative: - Lipomas are marked and as noted in HPI Heart is regular rate and rhythm Lungs are clear to auscultation
--- NOTE | 2021-11-11 22:14 | W.PM.DSUDISC ---
Discharge Plan Disposition Patient Disposition: HOME Condition: Good Discharge Details Reason For Visit: lipoma removal Attending Provider: Olga Lidia Toledo Primary Care Provider: Michell Simmons Home Meds and New Rx's Prescriptions: No Action Xarelto 20 mg tablet 20 mg PO DAILY Qty: 90 3RF Rx Instructions: dx: PE albuterol sulfate [ProAir HFA] 90 mcg/actuation HFA aerosol inhaler 2 puff Inhalation Q4H PRN Qty: 1 2RF Rx Instructions: cough, wheeze, SOB fluticasone propionate [Flonase Allergy Relief] 50 mcg/actuation spray,suspension 2 spray FLORENTIN DAILY PRN (Reason: allergy symptoms) Qty: 9.9 4RF acetaminophen 500 mg tablet 2,000 mg PO DAILY celecoxib 100 mg capsule 100 mg PO DAILY Rx Instructions: or as directed; polyarthralgia; do not take with other NSAIDs rizatriptan 5 mg tablet See Rx Instructions PO .COMPLEX PRN Rx Instructions: take 1 tablet at onset of headache; if no relief, may repeat 1 tablet after at least 2 hrs PO Discharge Instructions Additional Instructions: Wound Care Instruction Pain Control Use ice!? Ice keeps the swelling down and swelling is what causes pain.? Never apply ice directly to the skin.? Wrap it in a towel or cloth.? Apply ice 20 minutes on and 20 minutes off for pain control.? Use as needed. Take Tylenol 500 mg by mouth with food every 4 hours as needed for pain. Or ibuprofen 600 mg by mouth with food every 6 hours as needed for pain.? Do not take Tylenol if you have a history of heavy drinking, hepatitis C or liver problems.? Do not take ibuprofen if you have a history of stomach ulcers/problems, bleeding problem or kidney issues. ? Always wash your hands before touching your incision. ? Keep the incision clean, dry, and out of water, keep the incision out of water. ? Do not to pick at the scabs. Scabs help protect the wound. ? You can take a shower in 24 hours and wash the incision with soap and water. Pat dry/don?t scrub. It?s OK to wash around the incision. But don?t spray water directly on it. ? Pat stitches dry if they get wet. Don't rub. ? Check the incision site daily for pain, redness, drainage, swelling, or separation of the incision edges. ? Make sure any clothing that touches the incision is loose-fitting. This will prevent rubbing. If the incision is on the head, keep your child from wearing caps or other head coverings. These may rub against the incision. As your incision heals, the skin may appear pink or red. It may also feel slightly bumpy or raised. This is called a healing ridge. Over time, the color should fade and the raised skin will become less noticeable. resume blood thinners: in 24hrs- Monday am When to seek medical care Call your healthcare provider right away if you have any of these: ? More pain, redness, swelling, bleeding, or foul-smelling discharge around the incision area ? Fever of 101?F (38.3?C) or higher, or as directed by your child's healthcare provider ? Shaking chills ? Vomiting or nausea that doesn?t go away ? Numbness, coldness, or tingling around the incision area, or changes in skin color ? 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
--- NOTE | 2021-11-11 22:15 | W.PM.OP ---
Date of service: 11/12/21 Time of Service: 07:30 Operative Note Operative Note DATE OF PROCEDURE: 11/12/21 PRE-OP DIAGNOSIS: multiple lipoma removal /soft tissue lesion removal POST-OP DIAGNOSIS: same SURGEON: Olga Lidia Toledo ANESTHESIA TYPE: Local By Surgeon Refer to Anesthesia Record ESTIMATED BLOOD LOSS: 1 PATHOLOGY: other COMPLICATIONS: None Patient was transported to: same day Patient's condition: stable Procedure Description: lesions: 5mm Left axillae probable dermatofibroma -incision is 5 mm. Closed with 3-0 nylon. Sent for pathology right lower quadrant 5 mm probable dermatofibroma incision is 5 mm-. Closed with 3-0 nylon. Sent for pathology Left elbow region 1 cm lipoma. Incision is 0.75 cm. Not sent for pathology. Closed with 3-0 nylon Posterior lower trunk: Superior lesion-lipoma 3 mm plus scar tissue. Incision is 1 cm. Closed with 3-0 nylon. Not sent for pathology Inferior lesion-lipoma. 4 mm. Incision is 5 mm. Closed with 3-0 nylon. Not sent for pathology. Informed consent is obtained explaining risks and benefits of the procedures including but not limited to bleeding, infection, scarring, complications from the anesthetic, need for removal of more tissue. Patient was marked in preop. She is brought to the operative room suite. She is placed in the prone position. The first 3 lesions are attended to. Each is prepped and draped in the usual sterile fashion using a ChloraPrep scrub solution timeout is performed. They are infiltrated with 1% canvas products sales representative with epi. An incision is made over each lipoma and they are dissected out. There are obvious lipomas and not sent for pathology. Patient is then placed in the supine position and the skin lesions are intended to. These are both excised and closed with 3-0 nylon. These are sent for pathology. Sterile dressings are applied. Patient tolerated procedure well without complication and return to same-day surgery. She was given instructions in wound care, activity, and warning signs and will follow up in 10 days for suture removal. This document was created using voice activated software and may contain errors
[2021-11-12] MEDS: Gabapentin 300 MG CAP 600 MG PO (06:38)
[2021-11-12] MEDS: Acetaminophen 500 MG TAB (06:40)
[2021-11-12 06:52] VITALS: BP 102/61; PULSE 67; RESP 16; TEMP 36.7; O2SAT 97
[2021-11-12 06:57] VITALS: BP 102/61; PULSE 67; RESP 16; TEMP 36.7; O2SAT 97
[2021-11-12] MEDS: Lidocaine 1% Multi-Dose W/EPI 1/100,000 50 ML VIAL (08:00)
--- NOTE | 2021-11-12 08:15 | SKI_PTH ---
PATIENT: Anna Mccray LOC: [facility] U#:[id number] AGE/SX: 46/F ROOM: RE11/12/[address]: Olga Lidia Toledo : 1975 BED: DIS: 11/12/2021 SPEC #: [id number] RECD: 11/12/21 12:49 STATUS: MACK REQ #: [id number] NOY: 11/12/21 08:[address]: Olga Lidia Toledo DEPT: Surgical Specimen RECD BY: Sara Troy ENTERED: 11/12/21 12:50 SP TYPE: BERRY ELIZABETH DR: Michell Simmons APRN Tissues: 1 - SKIN BIOPSY(SHAVE/PUNCH) Procedures: SKIN LEVEL 4 Comments: [id number]
[2021-11-12 08:19] VITALS: BP 116/71; PULSE 48; RESP 16; TEMP 36.1; O2SAT 99
[2021-11-12] MEDS: Ibuprofen 600 MG TAB PO (08:48)
== END 2021-11-12 08:55 | disposition home or self-care (01) ==
PROVIDERS: PCP Nurse Practitioner Adult Health; Visit Provider Surgery
PROC: (CPT 11400; principal; 2021-11-12 07:30)
DX: D17.9 Benign lipomatous neoplasm, unspecified (principal); D23.5 Other benign neoplasm of skin of trunk; L98.8 Other specified disorders of the skin and subcutaneous tissue; L85.9 Epidermal thickening, unspecified
CPT/HCPCS: 11400 ×3; 11401 ×2; 88305

== ENCOUNTER 2022-01-12 11:51 | Day surgery (SDC) | payer MEDICAID, SELFPAY ==
--- NOTE | 2022-01-12 09:47 | W.PM.DSUDISC ---
Date of service: 01/12/22 Time of Service: 12:26 Discharge Plan Disposition Patient Disposition: HOME Condition: Good Discharge Details Reason For Visit: Right foot osteophyte Attending Provider: René Hanson Primary Care Provider: Michell Simmons Home Meds and New Rx's Prescriptions: New acetaminophen 500 mg tablet 500 mg PO Q6H PRN (Reason: pain) Qty: 60 2RF hydrocodone-acetaminophen 5-325 mg tablet 1 tab PO Q6H PRN (Reason: severe pain) Qty: 6 0RF Rx Instructions: Take one tablet up to every 6 hours as needed for severe postoperative pain Continued Xarelto 20 mg tablet 20 mg PO DAILY Qty: 90 3RF Rx Instructions: dx: PE albuterol sulfate [ProAir HFA] 90 mcg/actuation HFA aerosol inhaler 2 puff Inhalation Q4H PRN Qty: 1 2RF Rx Instructions: cough, wheeze, SOB fluticasone propionate [Flonase Allergy Relief] 50 mcg/actuation spray,suspension 2 spray FLORENTIN DAILY PRN (Reason: allergy symptoms) Qty: 9.9 4RF celecoxib 100 mg capsule 100 mg PO DAILY Rx Instructions: or as directed; polyarthralgia; do not take with other NSAIDs rizatriptan 5 mg tablet See Rx Instructions PO .COMPLEX PRN Rx Instructions: take 1 tablet at onset of headache; if no relief, may repeat 1 tablet after at least 2 hrs PO Discontinued acetaminophen 500 mg tablet 2,000 mg PO DAILY Discharge Instructions Additional Instructions: Right Foot Osteophyte Removal Discharge Instructions Activity: You may weight bear as tolerated. You should keep the leg elevated as much as possible. You may wiggle your toes and move your hip and knee. You should wear the post-op sandal when you are up and mobilizing, but may remove it when not and move your foot/ankle as tolerated. Dressings: You should keep the initial dressing on for at least 3 days. After 3 days, you may remove it and get it wet in the shower. You should keep it covered with a light gauze dressing or wrap until follow-up. Medications: - You should take Tylenol and Ibuprofen around the clock for baseline pain. - You have been prescribed a stronger narcotic, Hydrocodone, for breakthrough pain. Follow-up: 2 weeks Referrals: René Hanson MD [ [facility] STAFF PHYSICIAN] - Equipment/Supplies: Partial Weight Bearing Crutches Activity:: Elevate Remove Dressings/Wound Care:: 72 hours Shower/Bathe:: 72 hours Activity:: Activity as Tolerated Diet:: As Tolerated
[2022-01-12 12:30] VITALS: BP 124/90; PULSE 68; RESP 18; TEMP 36.7; O2SAT 99
[2022-01-12] MEDS: Lactated Ringers 1,000 ML 80 ML IV (12:50)
--- NOTE | 2022-01-12 12:54 | W.ANESPRE ---
General Info Date of Service Date Performed: 01/12/22 Height: 5 ft 4 in Weight: 79.8 kg Body Mass Index (BMI): 30.2 Surgical Procedure: Operation Date: 01/12/22 14:10 Proposed Procedure Side Surgeon p Midfoot Ostectomy Right René Hanson MD Actual Procedure Side Surgeon p Midfoot Ostectomy Right René Hanson MD Meds Allergies and Home Medications Allergies Allergy/AdvReac Type Severity Reaction Status Date / Time naproxen Allergy Severe anaphilaxis Verified 01/12/22 12:24 hyaluronic acid Allergy Mild Knee Verified 01/12/22 12:24 injection--worsened pain bupropion Allergy Unknown hives Verified 01/12/22 12:24 Home Medication Medication Instructions Recorded albuterol sulfate 90 mcg/actuation 2 puff inhalation Q4H PRN ##1 12/28/18 aerosol inhaler (ProAir HFA) fluticasone propionate 50 2 spray intranasal DAILY PRN 07/17/19 mcg/actuation nasal allergy symptoms #9.9 mL spray,suspension (Flonase Allergy Relief) rivaroxaban 20 mg tablet (Xarelto) 20 mg PO DAILY #90 tabs 07/10/20 celecoxib 100 mg capsule 100 mg PO DAILY 11/11/21 rizatriptan 5 mg tablet See Rx Instructions PO .COMPLEX PRN 11/11/21 acetaminophen 500 mg tablet 500 mg 01/12/22 acetaminophen 500 mg tablet 500 mg PO Q6H PRN pain #60 tabs 01/12/22 hydrocodone 5 mg-acetaminophen 325 1 tab PO Q6H PRN severe pain #6 01/12/22 mg tablet tabs Current Visit Medications: Current Medications Generic Name Dose Route Start Last Admin Trade Name Freq PRN Reason Stop Dose Admin Acetaminophen 650 mg 01/12/22 09:41 Acetaminophen 325 Mg Tab PO Q4H PRN PRN Hydrocodone Bitart/Acetaminophen 0 tab 01/12/22 09:41 Hydrocodone 5/Acetaminophen 325 Tab PO Q3H PRN PRN Pain Ringer's Solution 1,000 mls @ 80 mls/hr 01/12/22 06:00 IV 02/10/22 23:59 INFUSION COLTEN Cefazolin Sodium/Dextrose 2 gm in 50 mls @ 100 mls/hr 01/12/22 06:00 Ancef Duplex IVPB 02/10/22 23:59 PREOP COLTEN IV Miscellaneous Supplies 1 each 01/12/22 06:00 Iv Access IV 02/10/22 23:59 DIRECTED COLTEN Sodium Chloride 0 ml 01/12/22 06:00 Normal Saline Flush 10 Ml Syr IV 02/10/22 23:59 PRN PRN Sodium Chloride 0 ml 01/12/22 06:00 Normal Saline 10 Ml Vial IJ 02/10/22 23:59 DIRECTED PRN Sterile Water 0 ml 01/12/22 06:00 Water,Injection,Sterile 10 Ml Vial IJ 02/10/22 23:59 DIRECTED PRN PFSH Active Problems Active Problems: Problem Status Onset Code Exostosis of right foot M89.8X7 Osteophyte, right foot M25.774 De Quervain's disease (radial styloid tenosynovitis) M65.4 Epidermal hyperplasia L85.9 Lipoma D17.9 Elevated BUN R79.9 Osteoarthritis of feet, bilateral M19.071, M19.072 Osteoarthritis involving multiple joints on both sides of body ~09/2021 M15.9 Multiple lipomas D17.9 Recurrent sinusitis J32.9 Polyarthralgia M25.50 History of partial knee replacement 08/07/19 Z96.659 Allergy to hyaluronic acid Z91.09 Arthritis of left knee M17.12 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-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 (nsaid) Z79.1 Synovial cyst of popliteal space [Munoz], left knee M71.22 Snoring 12/06/13 R06.83 Pulmonary embolism 07/13/06 I26.99 Hyperlipidemia 09/01/15 E78.5 Family history of breast cancer 08/26/15 Z80.3 Depressive disorder 04/05/11 F32.9 Current use of anticoagulant therapy 10/30/12 Z79.01 Chronic migraine w/o aura w/o status migrainosus, not intractable 04/05/11 G43.709 Asthma 05/24/13 J45.909 Arthralgia of hand 12/06/13 M25.549 Allergic rhinitis 12/06/13 J30.9 Medical History Medical History Asthma HLD (hyperlipidemia) Low grade squamous intraepithelial lesion (LGSIL) on cervical Pap smear (09/15/15) Repeat 2017: Normal cells/neg HPV, next 2019 Migraines Rheumatoid factor positive Per [facility] Rheum phone consult s/p reviewing records & x-rays pt dx'ed: OA with low-titer RF Urge and stress incontinence Oxybutynin not helpful 08/2019 Medical History Comments:: Reports mother had one episode where it took 2-3hrs to wake up Surgical History Surgical History Bursectomy L shoulder, 2004, Dr. Ridley [place] History of surgical removal of ganglion cyst right hand S/P biopsy (11/12/21) 11/12/21: shave bx of skin of left axilla and right upper quadrant of abdomen.Final dx: slight epidermal hyperplasia and hyperkeratosis. S/P excision of lipoma (~10/31/18) Tubal Ligation, 1995 [place] teeth extraction Tobacco Smoking/Tobacco Use Status: Former Tobacco Use Alcohol Alcohol Intake: current Alcohol intake frequency: holidays/special occasions only Substance Use Substance use: Never Substance use type: does not use Details: alcohol: 12/04 Vital Signs and Lab Results Vital Signs Most Recent Vital Signs in EMR: Most Recent Vital Signs Temp Pulse Resp BP Pulse Ox 36.7 C 68 18 124/90 99 01/12/22 12:30 01/12/22 12:30 01/12/22 12:30 01/12/22 12:30 01/12/22 12:30 Lab Results Blood Type / Crossmatch: No Data to Display Complete Blood Count: No Data to Display Complete Metabolic Panel: No Data to Display Liver Function Panel: No Data to Display Coagulation Panel: No Data to Display Cardiac Panel: No Data to Display Arterial Blood Gas: No Data to Display Venous Blood Gas: No Data to Display Pancreas Panel: No Data to Display Thyroid Panel: No Data to Display Infectious Disease: No Data to Display Blood Cultures: No Data to Display Toxicology Panel: No Data to Display Panel: No Data to Display Anesthesia Assessment and Plan Anesthesia History Personal History: No History of Anesthesia Complications Family History: No Family History of Anesthesia Complications and Other Exercise Tolerance Exercise Tolerance: Metabolic Equivalents>4 Pertinent Negatives Pertinent Negatives: No Symptoms of GERD and No Major Cardiovascular Symptoms or Complaints Cardiac & Pulmonary Exam Cardiac Exam: Normal S1/S2 Heart Sounds Pulmonary Exam: Clear Bilateral Breath Sounds Implantable Cardiac Device Does patient have a Pacemaker or an ICD?: No Airway Exam Known Difficult Airway: No Mallampati Class: 1 Mouth Opening: Normal (> 3cm) Thyromental Distance: Greater than 3 cm Neck Range of Motion: Full ROM Neck Circumference: Normal Teeth Condition: Normal Dentition ASA Classification ASA Score: ASA 3 Emergency Case?: No NPO Status NPO Status: NPO Clears >2 hours, Solids >8 hours Status Status: Not Relevant due to Medical History and Not Per Patient Anesthesia Plan Resuscitation Status: Full Code Anesthesia Technique: General Anesthesia Airway Planned: Natural Airway Monitors Used: Standard Monitors
[2022-01-12 13:07] VITALS: BMI 30.2
[2022-01-12] MEDS: ceFAZolin 2 GM/50 ML BAG IVPB (13:14)
[2022-01-12] MEDS: Bupivacaine 0.25% Pres-Free W/EPI 30 ML VIAL (13:39)
[2022-01-12 14:00] VITALS: BP 108/72; PULSE 67; RESP 20; TEMP 36.1; O2SAT 99
[2022-01-12 14:30] VITALS: BP 112/68; PULSE 50; RESP 20; TEMP 36.5; O2SAT 100
--- NOTE | 2022-01-12 14:37 | W.ANESPOSTOP ---
Postoperative Evaluation Date, Time and Location Date Performed: 01/12/22 Time Performed: 14:37 Patient Location: Day Surgery Unit Vital Signs Most Recent Imported Vital Signs: Most Recent Vital Signs Temp Pulse Resp BP Pulse Ox 36.1 C L 67 20 108/72 99 01/12/22 14:00 01/12/22 14:00 01/12/22 14:00 01/12/22 14:00 01/12/22 14:00 Pain Score Most Recent Pain Score: Most Recent Pain Score Pain Level 0 01/12/22 14:00 Assessment Mental Status: Awake (Alert & Oriented to Patient Baseline) Airway and Respiratory Function: Patent airway with normal (patient baseline) respiratory exam Cardiovascular Function: Hemodynamically Stable Hydration Status: Adequately Hydrated Nausea & Vomiting: No Nausea or Vomiting Pain: Pt. Denies Any Pain Peripheral Nerve Block: Patient did not receive a nerve block
--- NOTE | 2022-01-12 21:31 | ROE_ITS ---
Date of service: 01/12/22 Time of Service: 14:00 Operative Note Operative Note DATE OF PROCEDURE: 01/12/22 PRE-OP DIAGNOSIS: Right Midfoot Osteophyte PROCEDURE: Right Midfoot Ostectomy - NaviculoCunieform SURGEON: René Hanson ANESTHESIA TYPE: General LMA/ETT Refer to Anesthesia Record ESTIMATED BLOOD LOSS: 5 TOURNIQUET TIME: 0 COMPLICATIONS: None Indications: Anna is a 46-year-old active female who has had worsening pain over the dorsum of her right foot. She has had difficulty with shoewear. She has had some pain with all types of shoes with any direct pressure over a large bump about the midfoot region. She had a large osteophyte about the naviculocuneiform joint which seem to be responsible for her symptoms. Given the inability to wear her basic shoes without any notable discomfort, I recom mend proceeding with an ostectomy of the bony prominences about the naviculocuneiform joint. I discussed the risk of the procedure. These included bleeding, infection, pain, stiffness, recurrence, incomplete resection, damage to nerves and vessels, damage to muscle and tendons. Despite these risk, she elected to proceed. Findings: There is a prominent bump off of the medial cuneiform. There is directly underneath the extensor hallucis longus tendon. This prominence was resected and the bony contours of the cuneiforms and navicular were smoothed. Procedure Description: Anna was greeted in the preoperative holding area. Her identity was confirmed the correct side was identified and marked. The consent was reviewed the patient and signed. She was taken to the operating room placed in supine position. All bony prominences well-padded. The right foot and lower leg was then prepped with ChloraPrep and draped in the standard fashion. Prophylactic antibiotics in the form of cefazolin were administered. A timeout was performed for safe surgery. A triangle was placed underneath the knee to flex the knee and let the foot rest plantigrade. The bump was these identifiable and incision was centered over this area in line with the extensor hallucis longus tendon. This incision was taken sharply through the skin. Blunt dissection was carried down with scissors to make sure to protect any passing nerve structures. The EHL tendon was identified and its sheath was incised. This was retracted medially and the neurovascular bundle was appreciated being lateral to this. The capsule of the naviculocuneiform joint was then incised directly on top of this large bony prominence. There is adequate space between the neurovascular structures and her working area protected by retractors. The capsule was elevated off of the bony prominence proximally and distally as well as medially and laterally. There is excellent visualization of this bone. I then used an osteotome to resect the bone. This was done to primary locations. The prominence was now gone. I then used a rongeur and a rasp to smooth down any bony irregularities of the navicular of the cuneiform about this joint. This was done until the bone was smoothed. The wound was then irrigated. It was inspected once again to make sure there is no bony prominence. Small amount of bone wax was placed onto the cut surfaces to prevent regrowth. The deep tissues were injected with 0.5% ropivacaine with epinephrine. This was done also for the soft tissues in the region. A single #2-0 Vicryl suture was placed into the capsule of the naviculocuneiform joint. With the capsule reapproximated and the remainder of the retractors were removed. The wound was once again irrigated. There is no significant bleeding. Deep tissues were closed with a 3-0 Vicryl followed by subcuticular 4-0 Monocryl. This was reinforced with skin glue and a Mepilex silver dressing was applied. She was placed into a postop shoe. All counts were correct. She was transferred back to the day surgery unit in stable condition.
== END 2022-01-12 15:15 | disposition home or self-care (01) ==
PROVIDERS: PCP Nurse Practitioner Adult Health; Visit Provider Student in an Organized Health Care Education/Training Program
PROC: (CPT 28104; principal; 2022-01-12 14:00)
DX: M25.774 Osteophyte, right foot (principal); J45.909 Unspecified asthma, uncomplicated; E78.5 Hyperlipidemia, unspecified
CPT/HCPCS: 28104; J0690; J1100; J1885; J2250; J2405; J2704; J3010

== ENCOUNTER 2022-02-21 10:22 | Outpatient (REF) | payer MEDICAID, SELFPAY ==
[2022-02-21 15:51] LABS: Anion Gap 6.7 mmol/L (3-11); BUN 16 mg/dL (7-18); CO2 29.3 mmol/L (21.0-32.0); CREATININE 0.8 mg/dL (0.55-1.02); Calcium 9.2 mg/dL (8.5-10.1); Chloride 104 mmol/L (98-107); Glucose 95 mg/dL (74-106); Potassium 4.3 mmol/L (3.5-5.1); Sodium 140 mmol/L (136-145)
== END 2022-02-21 10:23 | disposition home or self-care (01) ==
LOC: LBN 10:22
PROVIDERS: PCP Nurse Practitioner Adult Health; Visit Provider Nurse Practitioner Adult Health
DX: R79.9 Abnormal finding of blood chemistry, unspecified (principal); Z79.1 Long term (current) use of non-steroidal anti-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 (NSAID)
CPT/HCPCS: 80048

== ENCOUNTER 2022-07-25 02:38 | Outpatient (CLI) | payer MEDICAID, SELFPAY ==
--- NOTE | 2022-07-25 08:30 | DI.MAMMO_ITS ---
Exam(s) MAMMO SCREENING EXAM: MAMMO SCREENING CLINICAL HISTORY: screening,z12.39. TECHNIQUE: Bilateral full field digital CC and MLO mammographic images were obtained with 3D tomosyn thesis and utilizing computer aided detection (CAD). COMPARISON: Prior mammogram performed 2016 was reviewed. FINDINGS: There has been no significant change in the appearance and distribution of the fibroglandular tissue. No CAD designations. There are no new spiculated masses nor malignant appearing microcalcification groups. There is no significant architectural distortion nor skin thickening-retraction. IMPRESSION: No radiographic evidence of malignancy. No significant change compared to prior mammogram of 2016. BI-RADS Category 1 - Negative Breast Density - Category B - Scattered areas of fibroglandular density Breast density Category C or D implies that the patient has dense breast tissue. Dense breast tissue can make it harder to find cancer on a mammogram. Dense breast tissue is also associated with an incr eased risk of breast cancer. This information about the result of the mammogram report was provided to the patient to raise their awareness. Use this report when you speak with the patient about their risks for breast cancer, which includes their family history. At that time, you may recommend additional screening tests (Ultrasoun d or MRI) as these tests may add significant information. A negative radiographic report should not delay biopsy if a dominant or clinically suspicious mass is present. Up to ten percent of cancers are not identified on mammography. A negative report may reinforce clinical impression. Adenosis and dense breasts may obscure an underlying neoplasm. False positive reports average 6 to 10%. Patient will receive a letter notifying them of these results.
== END 2022-07-25 02:58 ==
LOC: DI 02:38
PROVIDERS: PCP Nurse Practitioner Adult Health; Visit Provider Nurse Practitioner Adult Health
DX: Z12.31 Encounter for screening mammogram for malignant neoplasm of breast (principal)
CPT/HCPCS: 77063; 77067

== ENCOUNTER 2022-07-29 01:29 | Outpatient (CLI) | payer MEDICAID, SELFPAY ==
--- NOTE | 2022-07-29 12:41 | DI.RAD_ITS ---
Exam(s) XR HIP RT COMPLETE AP PELVIS EXAM: XR HIP RT COMPLETE AP PELVIS CLINICAL HISTORY: ?OA/DJD,acute rt hip pain, m25.551. TECHNIQUE: 2D digital imaging was performed. COMPARISON: No exams were available for comparison FINDINGS: Two views No evidence of pelvic nor hip fracture. Mild degenerative changes noted. Additional lateral view ri ght hip reveals small marginal osteophyte femoral head level. Sacroiliac joints appear unremarkable. There are significant degenerative facet changes in the lower lumbar incidentally noted. IMPRESSION: As above. DATA REPOSITORY: RADIATION DOSE DELIVERED:
== END 2022-07-29 01:49 ==
LOC: DI 01:29
PROVIDERS: PCP Nurse Practitioner Adult Health; Visit Provider Nurse Practitioner Adult Health
DX: M25.751 Osteophyte, right hip; M47.816 Spondylosis without myelopathy or radiculopathy, lumbar region
CPT/HCPCS: 73502

== ENCOUNTER 2022-09-23 09:19 | Day surgery (SDC) | payer MEDICAID, SELFPAY ==
--- NOTE | 2022-09-23 07:01 | W.PM.DSUDISC ---
Date of service: 09/23/22 Time of Service: 13:00 Discharge Plan Disposition Patient Disposition: Home Condition: Stable Discharge Details Attending Provider: Colten Bhat Primary Care Provider: Michell Simmons Home Meds and New Rx's Prescriptions: Continued cyclobenzaprine 5 mg tablet 5 - 10 mg PO TID PRN (Reason: muscle spasm) Qty: 20 0RF Rx Instructions: Muscle spasm (sedating) Xarelto 20 mg tablet 20 mg PO DAILY Qty: 90 3RF Rx Instructions: dx: PE sertraline 50 mg tablet 50 mg PO DAILY Qty: 90 1RF diclofenac sodium [Voltaren Arthritis Pain] 1 % gel 2 g topical QID Qty: 100 3RF Rx Instructions: Apply 2G to bilateral hands for pain up to 4x/day (max 8G/day) albuterol sulfate [ProAir HFA] 90 mcg/actuation HFA aerosol inhaler 2 puff Inhalation Q4H PRN Qty: 1 2RF Rx Instructions: cough, wheeze, SOB fluticasone propionate [Flonase Allergy Relief] 50 mcg/actuation spray,suspension 2 spray FLORENTIN DAILY PRN (Reason: allergy symptoms) Qty: 9.9 4RF rizatriptan 5 mg tablet See Rx Instructions PO .COMPLEX PRN Rx Instructions: take 1 tablet at onset of headache; if no relief, may repeat 1 tablet after at least 2 hrs PO acetaminophen 500 mg tablet 500 mg PO Q6H PRN (Reason: pain) Qty: 60 2RF celecoxib [Celebrex] 100 mg capsule 100 mg PO DAILY Rx Instructions: or as directed; polyarthralgia; do not take with other NSAIDs Discontinued methylprednisolone [Medrol (Collin)] 4 mg tablets,dose pack See Rx Instructions PO DIRECTED Qty: 21 1RF Patient Comments: 09/23 Pt states she has completed this medication Rx Instructions: 1 pack PO as directed for neck pain Discharge Instructions Additional Instructions: Surgery: Right index, middle, and ring finger trigger releases Activity: Protect hand for a few weeks. Gently increase finger motion and hand gripping. Recommend elevation to minimize swelling and discomfort. Prescriptions: None Resume Xarelto tomorrow May use [id number] Tylenol (acetaminophen) as needed for mild pain and Celebrex (celecoxib) as needed for moderate to severe pain and swelling. Dressings: Leave dressing in place for 3 days. May then remove and leave open to air or cover incision with Band-Aid. May get wet after 5 days. Follow-up: 10-[address] Bhat Please call the office during business hours with any questions or concerns. Discharge Orders Discharge Orders: Discharge Order (Routine); Ordered 09/23/22 Ordered By: Colten Bhat DS: Diagnosis Discharge Diagnosis (1) Trigger ring finger of right hand: Status: Acute
--- NOTE | 2022-09-23 07:03 | W.PM.OP ---
Date of service: 09/23/22 Time of Service: 13:00 Operative Note Operative Note DATE OF PROCEDURE: 09/23/22 PRE-OP DIAGNOSIS: Right ring, index, and middle finger trigger finger POST-OP DIAGNOSIS: same PROCEDURE: Right 1. Ring finger trigger release, CPT# 49453 2. Index finger trigger release, CPT# 53829 3. Middle finger trigger release, CPT# 13550 SURGEON: Coltne Bhat ANESTHESIA TYPE: Local By Surgeon Refer to Anesthesia Record ESTIMATED BLOOD LOSS: 5 COMPLICATIONS: None Patient was transported to: PACU Patient's condition: stable Indications: Please see complete medical record for details. Procedure Description: In the operating room, local anesthesia was induced. The patient was positioned supine on the stretcher. All bony prominences were well-padded. Preoperative antibiotics were omitted. The Right hand was prepped and draped in the usual sterile fashion. The correct patient, procedure, and side of the procedure were all verified prior to incision. Proper analgesia was confirmed. Starting with the ring finger, a small volar longitudinal approach was made directly over MCP joint. Soft tissues were swept to the sides exposing the A1 bandar. It was released using a knife carefully centrally and released confirmed and completed proximally and distally with scissors. Tendons were somewhat bulbous but did not have any injury. Appropriate excursion confirmed. Patient demonstrated full range of motion of his finger which had previously been limited. She was awake and watch this full motion. Incision was irrigated and then the index finger was similarly approached with a small longitudinal volar incision, soft tissue was retracted to the sides exposing this bandar which was similarly released with knife and completed with scissors. Appropriate tendon excursion confirmed. This incision irrigated. Lastly, another similar longitudinal incision to the long finger was made, bandar exposed with soft tissue retraction to the sides, and this bandar fully released and appropriate release and excursion of the flexor tendons confirmed. Hemostasis was appropriate. Each incision was closed using 3-0 nylon horizontal mattress. Xeroform applied over each, which was covered in gauze and the hand gently compressed in an Paul bandage. The patient tolerated local anesthesia without complication and was transferred to the recovery room in a stable condition.
[2022-09-23 09:59] VITALS: BP 123/84; PULSE 76; RESP 16; TEMP 36.7; O2SAT 95
[2022-09-23] MEDS: Sodium Bicarbonate 50 MEQ/50 ML VIAL (12:27)
[2022-09-23] MEDS: Lidocaine 1% Multi-Dose W/EPI 1/100,000 50 ML VIAL (12:27)
[2022-09-23 13:20] VITALS: BP 119/83; PULSE 63; RESP 16; TEMP 36.4; O2SAT 97
== END 2022-09-23 13:40 | disposition home or self-care (01) ==
PROVIDERS: PCP Nurse Practitioner Adult Health; Visit Provider Student in an Organized Health Care Education/Training Program
PROC: (CPT 26055; principal; 2022-09-23 12:00)
DX: M65.341 Trigger finger, right ring finger (principal); M65.321 Trigger finger, right index finger; M65.331 Trigger finger, right middle finger
CPT/HCPCS: 26055 ×3

== ENCOUNTER 2022-12-26 03:55 | Outpatient (CLI) | payer MEDICAID, SELFPAY ==
[2022-12-26 08:51] LABS: Anion Gap 7.7 mmol/L (3-11); BUN 15 mg/dL (7-18); CO2 29.3 mmol/L (21.0-32.0); CREATININE 0.8 mg/dL (0.55-1.02); Calcium 9.3 mg/dL (8.5-10.1); Calculated LDL 155 mg/dL (<100); Chloride 103 mmol/L (98-107); Cholesterol 228 mg/dL (<200); Estimated GFR 90.83 (mL/min/1.73m2); Glucose 101 mg/dL (74-106); HDL Cholesterol 57 mg/dL (40-60); Potassium 4.1 mmol/L (3.5-5.1); Sodium 140 mmol/L (136-145); TSH (W/Ref FT4) 2.22 uIU/mL (0.36-3.74); Triglyceride 80 mg/dL (<150)
== END 2022-12-26 03:56 | disposition home or self-care (01) ==
LOC: LBO 03:55
PROVIDERS: PCP Nurse Practitioner Adult Health; Referring Provider Nurse Practitioner Adult Health; Visit Provider Nurse Practitioner Adult Health
DX: F32.9 Major depressive disorder, single episode, unspecified (principal); Z00.00 Encounter for general adult medical examination without abnormal findings; Z13.1 Encounter for screening for diabetes mellitus; Z13.220 Encounter for screening for lipoid disorders
CPT/HCPCS: 36415; 80048; 80061; 84443

== ENCOUNTER 2023-01-13 09:47 | Outpatient (CLI) | payer MEDICAID, SELFPAY ==
--- NOTE | 2023-01-13 09:30 | DI.RAD_ITS ---
Exam(s) XR HAND RT COMPLETE EXAM: XR HAND RT COMPLETE CLINICAL HISTORY: right hand cyst. TECHNIQUE: 2D digital imaging was performed of the right hand. Three images were obtained. AP, late ral and oblique views were obtained. COMPARISON: CR XR HAND RT COMPLETE from 09/13/2021 FINDINGS: BONES: No acute fracture is present. No bony destructive lesion is seen. JOINTS: No dislocation present. There are mild degenerative changes seen at the interphalangeal joint s of the hand. SOFT TISSUE: Normal. IMPRESSION: Mild degenerative changes of the hand. DATA REPOSITORY: RADIATION DOSE DELIVERED:
== END 2023-01-13 09:48 | disposition home or self-care (01) ==
LOC: DIORS 09:47
PROVIDERS: PCP Nurse Practitioner Adult Health; Referring Provider Nurse Practitioner Adult Health; Visit Provider Physician Assistant
DX: M79.641 Pain in right hand (principal)
CPT/HCPCS: 73130

== ENCOUNTER 2023-02-09 11:25 | Day surgery (SDC) | payer MEDICAID, SELFPAY ==
[2023-02-09 11:53] VITALS: BP 112/84; PULSE 70; RESP 18; TEMP 36.6; O2SAT 97
--- NOTE | 2023-02-09 12:10 | W.ANESPRE ---
General Info Date of Service Date Performed: 02/09/23 Height: 5 ft 4 in Weight: 90.7 kg Body Mass Index (BMI): 34.3 Surgical Procedure: Operation Date: 02/09/23 12:55 Proposed Procedure Side Surgeon p Excision Cyst Thumb, RIF Right Rneé Hanson MD Meds Allergies and Home Medications Allergies Allergy/AdvReac Type Severity Reaction Status Date / Time naproxen Allergy Severe anaphilaxis Verified 02/09/23 11:44 hyaluronic acid Allergy Mild Knee Verified 02/09/23 11:44 injection--worsened pain bupropion Allergy Unknown hives Verified 02/09/23 11:44 Home Medication Medication Instructions Recorded fluticasone propionate 50 2 spray intranasal DAILY PRN 07/16/20 mcg/actuation nasal allergy symptoms #9.9 mL spray,suspension (Flonase Allergy Relief) acetaminophen 500 mg tablet 500 mg PO Q6H PRN pain #60 tabs 01/12/22 diclofenac sodium 1 % topical gel 2 g topical QID #100 grams 02/21/22 (Voltaren Arthritis Pain) rivaroxaban 20 mg tablet (Xarelto) 20 mg PO DAILY #90 tabs 02/21/22 sertraline 50 mg tablet 50 mg PO DAILY #90 tabs 02/21/22 cyclobenzaprine 5 mg tablet 5 - 10 mg (1 - 2 x 5 mg) PO TID 09/06/22 PRN muscle spasm #20 tabs celecoxib 100 mg capsule (Celebrex) 100 mg PO DAILY 09/23/22 albuterol sulfate 90 mcg/actuation 2 puff inhalation Q4H PRN ##1 01/02/23 aerosol inhaler (ProAir HFA) rizatriptan 5 mg tablet See Rx Instructions PO .COMPLEX 01/02/23 PRN migraine #20 tabs bisacodyl 5 mg tablet,delayed 5 mg PO ONCE #4 tabs 01/12/23 release (Dulcolax (bisacodyl)) polyethylene glycol 3350 17 17 g PO ONCE #238 grams 01/12/23 gram/dose oral powder Current Visit Medications: Current Medications Generic Name Dose Route Start Last Admin Trade Name Freq PRN Reason Stop Dose Admin Cefazolin Sodium/Dextrose 2 gm in 50 mls @ 100 mls/hr 02/09/23 06:00 Ancef Duplex IVPB 02/09/23 23:59 [facility] Active Problems Active Problems: Problem Status Onset Code Degenerative joint disease of right hip M16.11 Trochanteric bursitis, right hip M70.61 IFG (impaired fasting glucose) ~12/2022 R73.01 Trigger finger, right index finger M65.321 Trigger finger, right middle finger M65.331 Trigger ring finger of right hand M65.341 Torticollis, acute M43.6 Epidermoid cyst of finger of right hand L72.0 Osteoarthritis of hands, bilateral ~2013 M19.041, M19.042 Exostosis of right foot M89.8X7 De Quervain's disease (radial styloid tenosynovitis) M65.4 Osteoarthritis of feet, bilateral M19.071, M19.072 Osteoarthritis involving multiple joints on both sides of body ~09/2021 M15.9 Multiple lipomas D17.9 Recurrent sinusitis J32.9 Polyarthralgia M25.50 History of partial knee replacement 08/07/19 Z96.659 Allergy to hyaluronic acid Z91.09 Arthritis of left knee M17.12 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-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 (nsaid) Z79.1 Pulmonary embolism 07/13/06 I26.99 Hyperlipidemia 09/01/15 E78.5 Family history of breast cancer 08/26/15 Z80.3 Depressive disorder 04/05/11 F32.9 Current use of anticoagulant therapy 10/30/12 Z79.01 Chronic migraine w/o aura w/o status migrainosus, not intractable 04/05/11 G43.709 Asthma 05/24/13 J45.909 Allergic rhinitis 12/06/13 J30.9 Medical History Medical History Elevated BUN Snoring (12/06/13) With apnea Refer to sleep medicine when pt ready, 2013; had lost weight & snoring resolved Acute right hip pain sciatica Epidermal hyperplasia Lipoma Urge and stress incontinence Oxybutynin not helpful 08/2019 Rheumatoid factor positive Per [facility] [place] Rheum phone consult s/p reviewing records & x-rays pt dx'ed: OA with low-titer RF Synovial cyst of popliteal space [Munoz], left knee ER 03/04/18 Low grade squamous intraepithelial lesion (LGSIL) on cervical Pap smear (09/15/15) Repeat 2017: Normal cells/neg HPV, next 2019 Arthralgia of hand (12/06/13) x-rays OA Asthma HLD (hyperlipidemia) Migraines Medical History Comments:: Reports mother had one episode where it took 2-3hrs to wake up Surgical History Surgical History Status post osteotomy (~12/2021) R foot Osteophyte, right foot S/P osteotomy: 01/12/2022 S/P biopsy (11/12/21) 11/12/21: shave bx of skin of left axilla and right upper quadrant of abdomen.Final dx: slight epidermal hyperplasia and hyperkeratosis. S/P excision of lipoma (~10/31/18) History of surgical removal of ganglion cyst right hand [place] teeth extraction Tubal Ligation, 1995 Bursectomy L shoulder, 2004, Dr. Ridley [place] Tobacco Smoking/Tobacco Use Status: Former Tobacco Use Alcohol Alcohol Intake: current Alcohol intake frequency: holidays/special occasions only Substance Use Substance use: Never Substance use type: does not use Vital Signs and Lab Results Vital Signs Most Recent Vital Signs in EMR: Most Recent Vital Signs Temp Pulse Resp BP Pulse Ox 36.6 C 70 18 112/84 97 02/09/23 11:53 02/09/23 11:53 02/09/23 11:53 02/09/23 11:53 02/09/23 11:53 Lab Results Blood Type / Crossmatch: No Data to Display Complete Blood Count: No Data to Display Complete Metabolic Panel: No Data to Display Liver Function Panel: No Data to Display Coagulation Panel: No Data to Display Cardiac Panel: No Data to Display Arterial Blood Gas: No Data to Display Venous Blood Gas: No Data to Display Pancreas Panel: No Data to Display Thyroid Panel: No Data to Display Infectious Disease: No Data to Display Blood Cultures: No Data to Display Toxicology Panel: No Data to Display Panel: No Data to Display Anesthesia Assessment and Plan Anesthesia History Personal History: No History of Anesthesia Complications Family History: No Family History of Anesthesia Complications Exercise Tolerance Exercise Tolerance: Metabolic Equivalents>4 Pertinent Negatives Pertinent Negatives: No Symptoms of GERD Cardiac & Pulmonary Exam Cardiac Exam: Normal S1/S2 Heart Sounds Pulmonary Exam: Clear Bilateral Breath Sounds Implantable Cardiac Device Does patient have a Pacemaker or an ICD?: No Airway Exam Known Difficult Airway: No Mallampati Class: 2 Mouth Opening: Normal (> 3cm) Thyromental Distance: Greater than 3 cm Neck Range of Motion: Full ROM Neck Circumference: Normal Teeth Condition: Normal Dentition ASA Classification ASA Score: ASA 2 Emergency Case?: No NPO Status NPO Status: NPO Clears >2 hours, Solids >8 hours Status Status: Not Relevant due to Medical History (tubal ligation and post-menopause) Anesthesia Plan Resuscitation Status: Full Code Anesthesia Technique: General Anesthesia Airway Planned: Natural Airway Monitors Used: Standard Monitors
[2023-02-09 12:12] VITALS: BMI 34.3
--- NOTE | 2023-02-09 12:26 | W.PREOPHP ---
Assessment and Plan Assessment and plan (1) Epidermoid cyst of finger of right hand: Status: Acute (2) Mass of right hand: Status: Acute Assessment and plan: Anna is a 47-year-old female who has multiple masses about the right hand, dorsum of the right hand and the thumb as well as the index finger. She would like to have these removed. I reviewed the risk of the procedure to include bleeding, infection, pain, stiffness, recurrence, need for repeat procedures, damage to nerves and vessels. Despite these risk, she elects to proceed. History of Present Illness History of Present Illness Chief Complaint: Right Hand Cysts Narrative: Anna is a 47-year-old female who has multiple cyst about her right hand, dorsum of the hand by the thumb as well as the index finger. Please see the previous office note for complete detailed history. She would like these removed. She is here today for that procedure. She denies any recent illness. She denies chest pain or shortness of breath. Review of Systems All systems reviewed & are unremarkable except as noted in HPI and below PFSH All Active Problems (Updated 02/09/23 @ 12:30 by René Hanson MD) Mass of right hand (Acute) Degenerative joint disease of right hip (Acute) Trochanteric bursitis, right hip (Acute) IFG (impaired fasting glucose) (Acute ~12/2022) Trigger finger, right index finger (Acute) Trigger finger, right middle finger (Acute) Trigger ring finger of right hand (Acute) Torticollis, acute (Acute) Epidermoid cyst of finger of right hand (Acute) Osteoarthritis of hands, bilateral (Acute ~2013) De Quervain's disease (radial styloid tenosynovitis) (Acute) Osteoarthritis of feet, bilateral (Acute) Osteoarthritis involving multiple joints on both sides of body (Chronic ~09/2021) Multiple lipomas (Acute) Recurrent sinusitis (Acute) Polyarthralgia (Acute) L-T Celebrex History of partial knee replacement (Acute 08/07/19) Bilateral patellofemoral replacements: 08/07/2019 Allergy to hyaluronic acid (Acute) Arthritis of left knee (Acute) Synvisc injection: 02/22/2019; 05/07/2018 senior living (current) use of non-steroidal anti-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 (nsaid) (Chronic) Celebrex; Polyarthralgia Pulmonary embolism (Chronic 07/13/06) Switched to Xarelto 10/30/2012 No definite source, p/w L leg pain. Neg w/u for coagulopathy Hyperlipidemia (Chronic 09/01/15) 10/2016 labwork: 10-year ASCVD risk = 6.1% --> no statin indicated at this time, LSMs recommended Family history of breast cancer (Chronic 08/26/15) See Family History Depressive disorder (Chronic 04/05/11) L-T SSRI Current use of anticoagulant therapy (Chronic 10/30/12) s/p multiple PEs Chronic migraine w/o aura w/o status migrainosus, not intractable (Chronic 04/05/11) Asthma (Chronic 05/24/13) Mild intermittent [place], colds are triggers PRN Albuterol Allergic rhinitis (Chronic 12/06/13) RX Flonase 11/2013 (new RX) Medical History Elevated BUN Snoring (12/06/13) With apnea Refer to sleep medicine when pt ready, 2013; had lost weight & snoring resolved Acute right hip pain sciatica Epidermal hyperplasia Lipoma Urge and stress incontinence Oxybutynin not helpful 08/2019 Rheumatoid factor positive [place] [facility] [place]/p reviewing records & x-rays pt dx'ed: OA with low-titer RF Synovial cyst of popliteal space [Munoz], left knee ER 03/04/18 Low grade squamous intraepithelial lesion (LGSIL) on cervical Pap smear (09/15/15) Repeat 2017: Normal cells/neg HPV, next 2019 Arthralgia of hand (12/06/13) x-rays OA Asthma HLD (hyperlipidemia) Migraines Surgical History Status post osteotomy (~12/2021) R foot Osteophyte, right foot S/P osteotomy: 01/12/2022 S/P biopsy (11/12/21) 11/12/21: shave bx of skin of left axilla and right upper quadrant of abdomen.Final dx: slight epidermal hyperplasia and hyperkeratosis. S/P excision of lipoma (~10/31/18) History of surgical removal of ganglion cyst right hand [place] teeth extraction Tubal Ligation, 1995 Bursectomy L shoulder, 2005, Dr. Keyana Bentley Family History Mother Rheumatoid arthritis Diabetes T2 Essential hypertension Hyperlipidemia Mental disorder Bipolar disorder Father Substance abuse EtOH Diabetes T1 Seizure disorder Sister , Overdose Substance abuse Mental disorder Bipolar disorder Sister Mental disorder Bipolar disorder Grandmother , Breast CA at age 44. Rheumatoid arthritis Personal history of malignant neoplasm Breast CA dx'ed 35 at 40 Maternal Aunt , MVA at age 58. 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 Sexually active: No Current gender identity: female What is your relationship status?: Panel score (0-1 are the most socially isolated patients): 0 What type of physical activity do you participate in: walking Frequency: 1-2 times per week Seatbelt use: always Drive intox or ride w/intox truck driver flatbed: No Water heater temp set <120 deg: Yes Working smoke detector in home: Yes Fire extinguisher in home: Yes Carbon monox detector in home: Yes Do you feel safe at home: Yes Do you feel safe in your relationship?: Yes Female Reproductive History Menstrual Menopause type: natural Date of menopause: 07/14/17 Meds Allergies and Home Medications Allergies Allergy/AdvReac Type Severity Reaction Status Date / Time naproxen Allergy Severe anaphilaxis Verified 02/09/23 11:44 hyaluronic acid Allergy Mild Knee Verified 02/09/23 11:44 injection--worsened pain bupropion Allergy Unknown hives Verified 02/09/23 11:44 Home Medications Medication Instructions Recorded Confirmed Type fluticasone propionate 50 2 spray intranasal DAILY PRN 07/17/19 02/09/23 Rx mcg/actuation nasal allergy symptoms #9.9 mL spray,suspension (Flonase Allergy Relief) acetaminophen 500 mg tablet 500 mg PO Q6H PRN pain #60 tabs 01/12/22 02/09/23 Rx diclofenac sodium 1 % topical gel 2 g topical QID #100 grams 02/21/22 02/09/23 Rx (Voltaren Arthritis Pain) rivaroxaban 20 mg tablet (Xarelto) 20 mg PO DAILY #90 tabs 02/21/22 02/08/23 Rx sertraline 50 mg tablet 50 mg PO DAILY #90 tabs 02/21/22 02/09/23 Rx cyclobenzaprine 5 mg tablet 5 - 10 mg (1 - 2 x 5 mg) PO TID 09/06/22 02/09/23 Rx PRN muscle spasm #20 tabs celecoxib 100 mg capsule (Celebrex) 100 mg PO DAILY 09/23/22 02/09/23 History albuterol sulfate 90 mcg/actuation 2 puff inhalation Q4H PRN ##1 01/02/23 02/09/23 Rx aerosol inhaler (ProAir HFA) rizatriptan 5 mg tablet See Rx Instructions PO .COMPLEX 01/02/23 02/09/23 Rx PRN migraine #20 tabs bisacodyl 5 mg tablet,delayed 5 mg PO ONCE #4 tabs 01/12/23 02/09/23 Rx release (Dulcolax (bisacodyl)) polyethylene glycol 3350 17 17 g PO ONCE #238 grams 01/12/23 02/09/23 Rx gram/dose oral powder Exam Resp Effort & Inspection: normal respiratory effort and able to speak in complete sentences Auscultation: clear to auscultation bilaterally Cardio Rate: regular rate Rhythm: regular rhythm Results Last Vital Signs Temp 36.6 C 02/09/23 11:53 Pulse 70 02/09/23 11:53 Resp 18 02/09/23 11:53 BP 112/84 02/09/23 11:53 Pulse Ox 97 02/09/23 11:53
--- NOTE | 2023-02-09 12:39 | PDOC.DSDIS_ITS ---
Date of service: 02/09/23 Time of Service: 12:43 Discharge Plan Disposition Patient Disposition: Home Condition: Good Discharge Details Reason For Visit: Right hand cysts Attending Provider: René Hanson Primary Care Provider: Michell Simmons Home Meds and New Rx's Prescriptions: New hydrocodone-acetaminophen 5-325 mg tablet 1 tab PO Q6H PRN (Reason: severe pain) Qty: 6 0RF Rx Instructions: Take one tablet up to every 6 hours as needed for severe postoperative pain Continued cyclobenzaprine 5 mg tablet 5 - 10 mg PO TID PRN (Reason: muscle spasm) Qty: 20 0RF Rx Instructions: Muscle spasm (sedating) Xarelto 20 mg tablet 20 mg PO DAILY Qty: 90 3RF Rx Instructions: dx: PE sertraline 50 mg tablet 50 mg PO DAILY Qty: 90 1RF diclofenac sodium [Voltaren Arthritis Pain] 1 % gel 2 g topical QID Qty: 100 3RF Rx Instructions: Apply 2G to bilateral hands for pain up to 4x/day (max 8G/day) rizatriptan 5 mg tablet See Rx Instructions PO .COMPLEX PRN (Reason: migraine) Qty: 20 2RF Rx Instructions: take 1 tablet at onset of headache; if no relief, may repeat 1 tablet after at least 2 hrs PO albuterol sulfate [ProAir HFA] 90 mcg/actuation HFA aerosol inhaler 2 puff Inhalation Q4H PRN Qty: 1 2RF Rx Instructions: cough, wheeze, SOB bisacodyl [Dulcolax (bisacodyl)] 5 mg tablet,delayed release (DR/EC) 5 mg PO ONCE Qty: 4 0RF Rx Instructions: Take per colonoscopy instructions provided by ordering providers office polyethylene glycol 3350 17 gram/dose powder 17 g PO ONCE Qty: 238 0RF Rx Instructions: Take per colonoscopy instructions provided by ordering providers office fluticasone propionate [Flonase Allergy Relief] 50 mcg/actuation spray,suspension 2 spray FLORENTIN DAILY PRN (Reason: allergy symptoms) Qty: 9.9 4RF acetaminophen 500 mg tablet 500 mg PO Q6H PRN (Reason: pain) Qty: 60 2RF celecoxib [Celebrex] 100 mg capsule 100 mg PO DAILY Rx Instructions: or as directed; polyarthralgia; do not take with other NSAIDs Discharge Instructions Additional Instructions: Cyst Excision Discharge Instructions Activity: You should keep the hand elevated as much as possible for the first few days. You may use the other fingers as tolerated but avoid trying to do too much too soon. You may perform light activities with the dressing in place. Dressing/Cast: Your dressing should stay in place at all times. Do NOT get it wet. After 48 hours you may remove dressing. Clean the incisions, allow to dry and cover with a clean dressing or bandaides as needed. Medications: - You should take Tylenol and Celebrix for baseline pain control. - You have Hydrocodone for breakthrough pain. - You may apply ice over the hand. Follow-up: 7-10 days Referrals: René Hanson MD [ [facility] STAFF PHYSICIAN] - Activity:: Elevate Remove Dressings/Wound Care:: 48 hours Shower/Bathe:: 48 hours and Cover Diet:: As Tolerated Discharge Orders Discharge Orders: Discharge Order (Routine); Ordered 02/09/23 Ordered By: Olga Lidia Adkins DS: Diagnosis Discharge Diagnosis (1) Epidermoid cyst of finger of right hand: Status: Acute (2) Mass of right hand: Status: Acute
[2023-02-09] MEDS: Lactated Ringers 1,000 ML 80 ML IV (12:40)
[2023-02-09] MEDS: ceFAZolin 2 GM/50 ML BAG IVPB (12:45)
[2023-02-09] MEDS: Lidocaine 1% Multi-Dose W/EPI 1/100,000 50 ML VIAL (13:08)
[2023-02-09 13:24] VITALS: BP 106/77; PULSE 60; RESP 16; TEMP 36.3; O2SAT 97
--- NOTE | 2023-02-09 13:30 | W.ANESPOSTOP ---
Postoperative Evaluation Date, Time and Location Date Performed: 02/09/23 Time Performed: 13:30 Patient Location: Day Surgery Unit Vital Signs Most Recent Imported Vital Signs: Most Recent Vital Signs Temp Pulse Resp BP Pulse Ox 36.3 C L 60 16 106/77 97 02/09/23 13:24 02/09/23 13:24 02/09/23 13:24 02/09/23 13:24 02/09/23 13:24 Pain Score Most Recent Pain Score: Most Recent Pain Score Pain Level 0 02/09/23 13:24 Assessment Mental Status: Awake (Alert & Oriented to Patient Baseline) Airway and Respiratory Function: Patent airway with normal (patient baseline) respiratory exam Cardiovascular Function: Hemodynamically Stable Hydration Status: Adequately Hydrated Nausea & Vomiting: No Nausea or Vomiting Pain: Pt. Denies Any Pain Peripheral Nerve Block: Patient did not receive a nerve block
[2023-02-09 13:50] VITALS: BP 130/80; PULSE 51; RESP 16; TEMP 36.4; O2SAT 98
--- NOTE | 2023-02-09 16:06 | W.PM.OP ---
Date of service: 02/09/23 Time of Service: 12:30 Operative Note Operative Note DATE OF PROCEDURE: 02/09/23 PRE-OP DIAGNOSIS: Multiple cysts - right hand, thumb, and index finger POST-OP DIAGNOSIS: same PROCEDURE: Ganglion cyst excision - right dorsal wrist, right thumb, right index finger SURGEON: René Hanson ANESTHESIA TYPE: General:No Airway Refer to Anesthesia Record ESTIMATED BLOOD LOSS: 5 PATHOLOGY: none sent COMPLICATIONS: None Patient was transported to: same day Patient's condition: stable Indications: I have seen Anna in clinic for symptoms of a digital mucous cyst. The mass persisted and caused pain to direct contact and with use. The diagnosis of a mucous cyst was made. The symptoms had not responded to conservative measures. I discussed cyst excision with the patient. I reviewed the risks of the procedure to include, but not limited to, bleeding, infection, pain, stiffness, recurrence, damage to nerves or vessels. Despite these risks, the patient elected to proceed. Findings: There was a a large ganglion cyst arising from the dorsum of the radial right wrist. This seemed to derive itself from the thumb CMC joint. Additionally there is a ganglion cyst, mucous cyst, about the thumb IP joint which was removed. Lastly, there was a small ganglion cyst arising from the ulnar aspect of the PIP joint of the index finger. Procedure Description: nAna was greeted in the preoperative holding area where the correct side was identified and marked. The consent was reviewed with the patient and signed. All questions were answered. She was taken back to the operating room. The patient was placed into the supine position on the operating room table with the right arm on an arm board. All bony prominences were well padded. No prophylactic antibiotics were administered since this was a clean, elective hand surgical case. The right arm was then prepped with Chloraprep and draped in a standard fashion with stockinette and extremity drape. A timeout to confirm correct identity, side and site, procedure, allergies, anesthesia, and medical concerns was performed. Each surgical site was then anesthetized with 1% lidocaine with epinephrine and buffered with sodium bicarbonate. Starting with the dorsal?radial wrist cyst, longitudinal incision approxi-1 cm length was made. The skin was incised sharply. There is an obvious prominence seen in the deeper tissues. The fascia was released and the clear cyst capsule of the ganglion cyst was identified. This was deflated with typical painless fluid within it. The cyst capsule was then dissected off the surrounding tissues and traced down deep into the thumb which seem to be going to the thumb CMC joint. It was resected with a rongeur was also utilized to remove any extra tissue to perform a small arthrotomy of the thumb CMC joint. Wound was irrigated. The skin was closed with a #4-0 nylon. A longitudinal incision was then made overlying the right thumb cyst. The skin was incised sharply. Full-thickness flaps were then elevated to expose the cyst. The cyst capsule was then removed with a rongeur and followed back towards the DIP joint. Using the rongeur and a [place] I was able to penetrate into the DIP joint creating a small arthrotomy from the origin of the mucous cyst. The finger was irrigated and once again checked to make sure that all components of the cyst were removed. The skin was then closed using a #4-0 nylon in interrupted fashion. Moving onto the index finger, longitudinal incision was made overlying the mass, over the ulnar aspect of the PIP joint of the index finger. Skin was incised sharply and in the soft tissues there is a notable cyst. Appear to be a ganglion cyst with some density within it. It was removed sharply. It was arising from the dorsal capsule of the PIP joint and the underlying lateral band. Was resected sharply. The deeper tissues then were debrided with a rongeur the skin was closed with a #4-0 nylon. The wounds were then dressed with Xeroform, 4 x 4, conform dressing. The patient tolerated the procedure well and was returned to the Same Day Surgery area in a stable condition suffering no known complication.
== END 2023-02-09 14:05 | disposition home or self-care (01) ==
PROVIDERS: PCP Nurse Practitioner Adult Health; Visit Provider Student in an Organized Health Care Education/Training Program
PROC: (CPT 26160; principal; 2023-02-09 12:45)
DX: M67.431 Ganglion, right wrist; M67.441 Ganglion, right hand; L72.0 Epidermal cyst; R22.31 Localized swelling, mass and lump, right upper limb
CPT/HCPCS: 25111; 26160 ×2; J0131; J0690; J1100; J1885; J2001; J2405

== ENCOUNTER 2023-06-13 11:07 | Outpatient (REF) | payer MEDICAID, SELFPAY | END 2023-06-13 11:08 | disposition home or self-care (01) | LOC: LBN 11:07 | PROVIDERS: PCP Nurse Practitioner Adult Health; Visit Provider Student in an Organized Health Care Education/Training Program | DX: R30.0 Dysuria (principal); B96.29 Other Escherichia coli [E. coli] as the cause of diseases classified elsewhere | CPT/HCPCS: 87077; 87086; 87186 ==

== ENCOUNTER → 2023-07-19 04:15 | Outpatient (CLI) | payer MEDICAID, SELFPAY ==
--- NOTE | 2023-07-19 06:30 | DI.US_ITS ---
Exam(s) US SOFT TISSUE EXTREMITY EXAM: US SOFT TISSUE EXTREMITY CLINICAL HISTORY: suspect bakers cyst, posterior rt knee pain, rt leg pain, M25.561, M71.20,. TECHNIQUE: Ultrasound was performed using standard protocol. COMPARISON: No exams were available for comparison FINDINGS: Sonographic assessment utilizing grayscale and color Doppler imaging was performed and targeted to th e area of clinical concern. There is a 5.1 x 0.7 x 4.4 cm cyst in the right popliteal fossa most consistent with a Munoz cyst. IMPRESSION: 5.1 x 0.7 x 4.4 cm right Munoz cyst. DATA REPOSITORY:
== END ==
PROVIDERS: PCP Nurse Practitioner Adult Health; Visit Provider Nurse Practitioner Adult Health
DX: M25.561 Pain in right knee (principal); M71.21 Synovial cyst of popliteal space [Baker], right knee; M79.604 Pain in right leg
CPT/HCPCS: 76881

== ENCOUNTER → 2023-07-28 01:17 | Outpatient (CLI) | payer MEDICAID, SELFPAY ==
--- NOTE | 2023-07-28 08:00 | DI.MAMMO_ITS ---
Exam(s) MAMMO SCREENING EXAM: MAMMO SCREENING CLINICAL HISTORY: screening,Z12.39. TECHNIQUE: Bilateral full field digital CC and MLO mammographic images were obtained with 3D tomosyn thesis and utilizing computer aided detection (CAD). COMPARISON: Prior mammograms were reviewed. FINDINGS: There has been no significant change in the appearance and distribution of the fibroglandular tissue. There are no CAD designations. There are no new spiculated masses nor malignant appearing microcalcification groups. There is no significant architectural distortion nor skin thickening-retraction. IMPRESSION: No radiographic evidence of malignancy. BI-RADS Category 1 - Negative Breast Density - Category B - Scattered areas of fibroglandular density Breast density Category C or D implies that the patient has dense breast tissue. Dense breast tissue can make it harder to find cancer on a mammogram. Dense breast tissue is also associated with an incr eased risk of breast cancer. This information about the result of the mammogram report was provided to the patient to raise their awareness. Use this report when you speak with the patient about their risks for breast cancer, which includes their family history. At that time, you may recommend additional screening tests (Ultrasoun d or MRI) as these tests may add significant information. A negative radiographic report should not delay biopsy if a dominant or clinically suspicious mass is present. Up to ten percent of cancers are not identified on mammography. A negative report may reinforce clinical impression. Adenosis and dense breasts may obscure an underlying neoplasm. False positive reports average 6 to 10%. Patient will receive a letter notifying them of these results.
== END ==
PROVIDERS: PCP Nurse Practitioner Adult Health; Visit Provider Nurse Practitioner Adult Health
DX: Z12.31 Encounter for screening mammogram for malignant neoplasm of breast (principal)
CPT/HCPCS: 77063; 77067

== ENCOUNTER 2023-08-14 15:12 | Outpatient (CLI) | payer MEDICAID, SELFPAY ==
--- NOTE | 2023-08-14 15:10 | DI.RAD_ITS ---
Exam(s) XR HIP RT AP LAT ONLY EXAM: XR HIP RT AP LAT ONLY CLINICAL HISTORY: eval R hip pain. TECHNIQUE: 2D digital imaging was performed. COMPARISON: No exams were available for comparison FINDINGS: Two views. No evidence of acute fracture nor dislocation of the right hip joint. There is mild joint space narr owing. Small osteophytes also noted on the femoral head side. Bone density normal. No osseous lesions. IMPRESSION: Mild-moderate degenerative changes in the right hip joint. DATA REPOSITORY: RADIATION DOSE DELIVERED:
--- NOTE | 2023-08-14 15:10 | DI.RAD_ITS ---
Exam(s) XR KNEE RT 3V AP,LAT,AMALIA EXAM: XR KNEE RT 3V AP,LAT,AMALIA CLINICAL HISTORY: eval R knee pain/swelling. TECHNIQUE: 2D digital imaging was performed. COMPARISON: CR XR KNEE RT 3V AP,LAT,AMALIA from 11/14/2019 FINDINGS: 3 views Again noted is the patellofemoral compartment prosthesis. Appearance is stable no prosthesis migrati on. No loosening. No evidence of osteomyelitis. No prominent joint effusion. However, there is significant increase in degenerative change in the medial compartment of the knee n ow evident. Both marginal and intra-articular osteophyte. IMPRESSION: Appearance of the patellofemoral compartment prosthesis but increasing osteoarthritic degenerative ch sanjay in the medial compartment of the right knee. DATA REPOSITORY: RADIATION DOSE DELIVERED:
== END 2023-08-14 15:13 | disposition home or self-care (01) ==
LOC: DIORS 15:13
PROVIDERS: PCP Nurse Practitioner Adult Health; Referring Provider Nurse Practitioner Adult Health; Visit Provider Student in an Organized Health Care Education/Training Program
DX: M71.21 Synovial cyst of popliteal space [Baker], right knee (principal); M16.11 Unilateral primary osteoarthritis, right hip
CPT/HCPCS: 73562; 73502

== ENCOUNTER 2023-12-25 03:13 | Outpatient (CLI) | payer MEDICAID, SELFPAY ==
[2023-12-25 07:34] LABS: Anion Gap 9.1 mmol/L (3-11); BUN 18 mg/dL (7-18); CO2 26.9 mmol/L (21.0-32.0); CREATININE 0.8 mg/dL (0.55-1.02); Calcium 8.9 mg/dL (8.5-10.1); Calculated LDL 134 mg/dL (<100); Chloride 105 mmol/L (98-107); Cholesterol 211 mg/dL (<200); Estimated GFR 90.27 (mL/min/1.73m2); Glucose 102 mg/dL (74-106); HDL Cholesterol 61 mg/dL (40-60); Potassium 4.2 mmol/L (3.5-5.1); Sodium 141 mmol/L (136-145); Triglyceride 82 mg/dL (<150)
[2023-12-25 12:10] LABS: Hemoglobin A1C 5.3 % (<5.7)
[2023-12-27 15:40] LABS: FREE T4 0.78 ng/dL (0.76-1.46)
[2023-12-27 17:37] LABS: Lab Add On Test DONE
== END 2023-12-25 03:14 | disposition home or self-care (01) ==
LOC: LBO 03:13
PROVIDERS: PCP Nurse Practitioner Adult Health; Referring Provider Nurse Practitioner Adult Health; Visit Provider Nurse Practitioner Adult Health
DX: E78.5 Hyperlipidemia, unspecified (principal); R73.01 Impaired fasting glucose; R23.2 Flushing; F32.9 Major depressive disorder, single episode, unspecified
CPT/HCPCS: 36415; 80048; 80061; 83036; 84439; 84443